=== PATIENT | female | born 1955 | race Caucasian/White ===

== ENCOUNTER 2024-09-12 06:57 | Inpatient (IN) | payer MEDICARE ==
[~2024-09-12] VITALS: Ht 160 cm; Wt 76.2 kg
--- NOTE | 2024-09-12 07:23 | ERN ---
ED Note History of Present Illness Stated Complaint: SHORTNESS OF BREATH Chief Complaint: Shortness of Breath Time Seen by MD: 07:18 Dictation: This is a 69-year-old female with a past medical history of CHF, surgical history of TAVR who presented to the ER complaining of shortness breath. Patient said that she has started feeling weak, fatigued and lately started having chills, symptoms started 3 days ago. Initial workup in the ER was remarkable for fever with a temperature 101.4. During initial evaluation in the room patient was shaking. Allergies: Coded Allergies: Sulfa (Sulfonamide Antibiotics) (Unverified Allergy, Intermediate, 09/12/24) Past Medical History Past Medical History: Other Additional Past Medical Hx: PULMONARY HTN Surgical History: Cholecystectomy, Other Surgical History Other: LIVER TRANSPLANT, TRANS AORTIC VALVE REPLACEMENT (ELEQUIS), Review of System Dictation Constitutional: Positive for weakness, fever and chills Eyes: Negative for injury, pain,redness, and discharge ENT: Negative for injury,pain or swelling Cardiovascular: Negative for chest pain, palpitations, and edema Respiratory: Positive for shortness of breath negative for cough, and wheezing, Abdomen/GI: Negative for abdominal pain, nausea, vomiting, diarrhea, and constipation Back: Negative for injury and pain : Negative for injury, bleeding and discharge MS/Extremity: Negative for injury and deformity Skin: Negative for rash, and discoloration Neuro: Negative for headache, weakness, numbness, tingling, and seizure Psych: Negative for suicide ideation, homicidal ideation, and hallucinations Initial Vital Sign VS Vital Signs Date Time Temp Pulse Resp B/P (MAP) Pulse Ox O2 Delivery O2 Flow Rate FiO2 09/12/24 07:01 101.5 95 25 105/48 91 Room Air* 0 21 Physical Exam Dictation General: awake, alert, febrile Head/Face: Normocephalic, atraumatic Eyes: PERRL, EOMI, vision at baseline ENT: oral cavity clear, TMs clear, no signs of infection Neck: Trachea midline, supple, no nuchal rigidity Cardiovascular: Borderline tachycardia No MRGs, no JVD Respiratory: Mild tachypnea, no wheezes Abdomen: Soft, non-tender, non-distended, normal bowel sounds, no guarding or rebound. Skin: Warm, dry, normal turgor, no rash MS/Extremity: Pulses equal, no cyanosis, neurovascular intact, FROM Neuro: COAx4, GCS 15, strength 5/5, CN 2-12 intact, normal cerebellar exam, normal gait, Psych: Normal behavior, mood, and affect normal Results (Laboratory/Radiology) Laboratory/Radiology Laboratory Tests Test 09/12/24 07:13 09/12/24 07:31 09/12/24 09:07 Influenza Type A Antigen Positive For Type A Influenza Type B Antigen Negative For Type B SARS-CoV-2, RNA, NAAT NEGATIVE SARS CoV-2 White Blood Count 4.4 K/uL (4.8-10.8) L Red Blood Count 2.63 MIL/uL (4.00-5.50) L Hemoglobin 8.8 g/dL (12.0-16.0) L Hematocrit 27.1 % (36-48) L Mean Corpuscular Volume 103.0 fL (79-99) H Mean Corpuscular Hemoglobin 33.5 pg (27.0-33.0) H Mean Corpuscular Hemoglobin Concent 32.5 g/dL (32.0-36.0) Red Cell Distribution Width 19.5 % (11.0-15.5) H Platelet Count 66 K/uL (130-400) L Mean Platelet Volume 10.9 fL (7.5-10.5) H Immature Granulocyte % (Auto) 0.7 % (0-1) Neutrophils (%) (Auto) 88.4 % (40.0-77.0) H Lymphocytes (%) (Auto) 3.9 % (21.0-51.0) L Monocytes (%) (Auto) 6.3 % (3.0-13.0) Eosinophils (%) (Auto) 0.5 % (0.0-8.0) Basophils (%) (Auto) 0.2 % (0.0-5.0) Neutrophils # (Auto) 3.9 K/uL (1.8-7.7) Lymphocytes # (Auto) 0.2 K/uL (1.0-4.8) L Monocytes # (Auto) 0.3 K/uL (0.1-1.0) Eosinophils # (Auto) 0.02 K/uL (0.00-0.70) Basophils # (Auto) 0.01 K/uL (0.00-0.20) Absolute Immature Granulocyte (auto 0.03 K/uL (0-1) Nucleated Red Blood Cells 0.0 % (0.0-0.19) White Cell Morphology Comment See comments Platelet Morphology Comment DECREASED Red Blood Cell Morphology See comments Sodium Level 138 mmol/L (136-145) Potassium Level 4.4 mmol/L (3.5-5.1) Chloride Level 105 mmol/L (101-111) Carbon Dioxide Level 24 mmol/L (21-32) Blood Urea Nitrogen 37 mg/dL (7-18) H Creatinine 1.7 mg/dL (0.5-1.0) H Glomerular Filtration Rate Calc 32 mL/min (>90) Random Glucose 124 mg/dL (70-105) H Total Calcium 8.8 mg/dL (8.5-10.1) B-Type Natriuretic Peptide 123 pg/mL (0-100) H Blood Gas Specimen Type Arterial Arterial Blood pH 7.484 (7.350-7.450) Arterial Blood Partial Pressure CO2 26 mmHg (32-45) L Arterial Blood Partial Pressure O2 86.7 mmHg (83.0-108.0) Arterial Blood HCO3 19.1 mmol/L (21.0-28.0) L Arterial Blood Oxygen Saturation 97.3 % (94.0-98.0) Arterial Blood Base Excess -2.6 mmol/L (-2.0-3.0) L Blood Gas Temperature 37.0 CELSIUS (35.5-37.0) Blood Gas Flow-by 2.00 L/min (0.00-15.00) Blood Gas Vent Mode NC (ROOM AIR) FiO2 28.0 % Blood Gas Specimen Comment LR, Labs Reviewed?: Yes ED Course ED Course Orders Procedure Category Date Status Time Cbc With Differential LAB 09/12/24 Complete 07:18 Basic Metabolic Panel LAB 09/12/24 Complete 07:18 B-Type Natriuretic LAB 09/12/24 Complete Peptide 07:18 Chest 1vw RAD 09/12/24 Taken 07:18 Acetaminophen 500mg PHA 09/12/24 Complete Tab (Tylenol 500mg T 07:30 Acetaminophen 500mg PHA 09/12/24 Complete Tab (Tylenol 500mg T 07:25 Influenza Type A & B, LAB 09/12/24 Complete Rapid 07:36 Covid Rna Naat LAB 09/12/24 Complete 07:36 Blood Cult EDIE 09/12/24 Logged 08:18 Lactic Acid LAB 09/12/24 In Process 08:18 B-Type Natriuretic LAB 09/12/24 In Process Peptide 08:18 Zosyn 3.375gm+Ns 50ml PHA 09/12/24 Complete (Zosyn 3.375gm+Ns 08:30 Ondansetron 4mg Inj PHA 09/12/24 Complete (Zofran 4mg Inj) 08:30 Ondansetron 4mg Inj PHA 09/12/24 Complete (Zofran 4mg Inj) 08:19 0.9%Nacl 1000ml (Ns PHA 09/12/24 Complete 1000ml) 08:30 Arterial Blood Gas RT 09/12/24 Transmitted 08:44 Arterial Blood Gas LAB 09/12/24 Complete 09:07 Oseltamivir Phosphate PHA 09/12/24 In Process (Tamiflu) 10:00 Admit Orders ADM 09/12/24 Transmitted 09:40 Oseltamivir Phosphate PHA 09/12/24 In Process (Tamiflu) 21:00 Ondansetron 4mg Inj PHA 09/12/24 In Process (Zofran 4mg Inj) 10:00 Acetaminophen 325 Tab PHA 09/12/24 In Process (Tylenol 325mg Tab 10:00 Famotidine 20mg Tab PHA 09/12/24 In Process (Pepcid 20mg Tab) 21:00 0.9%Nacl 1000ml (Ns PHA 09/12/24 In Process 1000ml) 10:00 Renal Dialysis Diet DIET 09/12/24 Transmitted Lunch Current Medications Medications (Trade) Dose Ordered Sig/Sandy Route PRN Reason Start Time Stop Time Status Last Admin Dose Admin Acetaminophen (TYLenol 500MG TAB) 500 mg ONCE ONCE PO 09/12/24 07:30 09/12/24 07:31 DC 09/12/24 07:28 Acetaminophen (TYLenol 500MG TAB) 500 mg STK-MED ONCE .ROUTE 09/12/24 07:25 09/12/24 07:25 DC Ondansetron HCl (zoFRAN 4MG INJ) 4 mg ONCE ONCE IVP 09/12/24 08:30 09/12/24 08:31 DC 09/12/24 08:22 Ondansetron HCl (zoFRAN 4MG INJ) 4 mg STK-MED ONCE .ROUTE 09/12/24 08:19 09/12/24 08:19 DC Oseltamivir Phosphate (Tamiflu) 75 mg ONCE ONCE PO 09/12/24 10:00 09/12/24 10:01 Piperacillin Sod/ Tazobactam Sod (Zosyn 3.375gm+NS 50ml) 3.375 gm ONCE ONCE IV 09/12/24 08:30 09/12/24 08:31 DC 09/12/24 08:28 Sodium Chloride 1,000 ml @ 0 mls/hr ONCE ONCE IV 09/12/24 08:30 09/12/24 08:31 DC 09/12/24 08:32 Vital Signs Date Time Temp Pulse Resp B/P (MAP) Pulse Ox O2 Delivery O2 Flow Rate FiO2 09/12/24 08:48 98.8 79 20 98/44 97 Nasal Cannula* 2 28 09/12/24 07:38 101.5 80 24 112/43 97 Nasal Cannula* 1 24 09/12/24 07:28 101.5 80 24 112/43 99 Nasal Cannula* 1 24 09/12/24 07:28 101.5 09/12/24 07:07 26 88 09/12/24 07:01 101.5 95 25 105/48 91 Room Air* 0 21 Medical Decision Making MDM MDM: Differential diagnosis: Fever, dehydration, viral syndrome 0936- Hospitalist consult,accepts patient for admission Rationale: Tests considered and ordered secondary to shared decision making include: labs, ECG and radiology Risk of complication and/or morbidity or mortality of patient management: None Medications-Per medication reconciliation Need for hospitalization: Patient does meet criteria for hospitalization. Need for emergency major/minor surgery: No There are no social concerns with this patient. I independently interpreted the test that were performed, results were reviewed by me and considered findings on radiology if ordered. Medical management and examination interpretation discussions were had by me with other qualified healthcare professionals as indicated for the patient's care. DX & DISP Disposition: Inpatient Decision to Admit Date: Sep 12, 2024 Decision to Admit Time: 09:36 Departure Impression: Primary Impression: Fever Additional Impressions: Influenza, Dehydration, Dyspnea Condition: Stable Referrals: SELF,REFERRAL (PCP) BHUPENDRA ROSE MD Sep 12, 2024 07:23 NATALEE CASTILLO MD Sep 12, 2024 10:00
[2024-09-12] MEDS: acetaMINOPHEN 500 MG TABLET PO ONE (07:28)
[2024-09-12] MEDS: acetaMINOPHEN 500 MG TABLET ONE (07:28)
[2024-09-12 07:37] LABS: BASOPHILS # (AUTO) 0.01 K/uL (0.00-0.20); BASOPHILS % (AUTO) 0.2 % (0.0-5.0); EOSINOPHILS # (AUTO) 0.02 K/uL (0.00-0.70); EOSINOPHILS % (AUTO) 0.5 % (0.0-8.0); HEMATOCRIT 27.1 % (36-48); IMMATURE GRANULOCYTE ABSOLUTE 0.03 K/uL (0-1); LYMPHOCYTES # (AUTO) 0.2 K/uL (1.0-4.8); LYMPHOCYTES % (AUTO) 3.9 % (21.0-51.0); MEAN CORPUSCULAR HEMOGLOBIN 33.5 pg (27.0-33.0); MEAN CORPUSCULAR HGB CONC 32.5 g/dL (32.0-36.0); MONOCYTES # (AUTO) 0.3 K/uL (0.1-1.0); MONOCYTES % (AUTO) 6.3 % (3.0-13.0); NEUTROPHILS # (AUTO) 3.9 K/uL (1.8-7.7); NEUTROPHILS % (AUTO) 88.4 % (40.0-77.0); PLATELET COUNT (AUTO) 66 K/uL (130-400); RED BLOOD CELL COUNT(AUTO) 2.63 MIL/uL (4.00-5.50); RED CELL DISTRIBUTION WIDTH 19.5 % (11.0-15.5); WHITE BLOOD COUNT (AUTO) 4.4 K/uL (4.8-10.8)
[2024-09-12 07:53] LABS: CREATININE 1.7 mg/dL (0.5-1.0); POTASSIUM 4.4 mmol/L (3.5-5.1)
[2024-09-12 07:56] LABS: B-TYPE NATRIURETIC PEPTIDE 123 pg/mL (0-100)
[2024-09-12 08:04] LABS: SARS-CoV-2, RNA, NAAT NEGATIVE SARS CoV-2 (NEGATIVE)
[2024-09-12 08:08] LABS: INFLUENZA TYPE B Negative For Type B (NEGATIVE)
--- NOTE | 2024-09-12 08:08 | NUR ---
PATIENT REPORT CHRONIC KIDNEY DISEASE STAGE 4
[2024-09-12 08:13] LABS: PLATELET MORPHOLOGY COMMENT DECREASED
--- NOTE | 2024-09-12 08:13 | NUR ---
PATIENT REPORTS LIVER TRANSPLANT 5 YEARS AGO FOR LIVER CIRRHOSIS. STATES HAS CHRONIC LOW PLATLET COUNT. ON ELIQUIS FOR CHRONIC AFIB WITH HISTORY OF CARDIAC ABLATION.
[2024-09-12] MEDS: ondanSETRON 4MG INJ ONE (08:22)
[2024-09-12] MEDS: ondanSETRON 4MG INJ IVP ONE (08:22)
[2024-09-12] MEDS: ZOSYN 3.375GM +NS 50ML IV ONE (08:28)
[2024-09-12] MEDS: 0.9%NACL 1000ML 1,000 ML IV ONE (08:32)
[2024-09-12 09:01] LABS: INFLUENZA TYPE A Positive For Type A (NEGATIVE)
[2024-09-12 09:09] LABS: ABG BASE EXCESS -2.6 mmol/L (-2.0-3.0); ABG HCO3 19.1 mmol/L (21.0-28.0); ABG OXYGEN SATURATION 97.3 % (94.0-98.0); ABG PCO2 26 mmHg (32-45); ABG PH 7.484 (7.350-7.450); PO2, ARTERIAL BG 86.7 mmHg (83.0-108.0); VENT MODE, BG NC (ROOM AIR)
[2024-09-12] MEDS: OSELTAMIVIR PHOSPHATE 75 MG CAP PO ONE (09:45)
[2024-09-12] MEDS ORDERED: acetaMINOPHEN 325 MG TAB PO PRN (10:00)
[2024-09-12] MEDS: 0.9%NACL 1000ML 1,000 ML IV SCH (10:04)
[2024-09-12] MEDS ORDERED: PoTASSium chloRIDE 20MEQ/100ML 100 ML IV PRN (12:00)
[2024-09-12] MEDS: OSELTAMIVIR PHOSPHATE 75 MG CAP PO SCH (12:12)
--- NOTE | 2024-09-12 12:16 | HP ---
[facility] HISTORY AND PHYSICAL Date of Service: Sep 12, 2024 Time of Service: 11:58 HISTORY OF PRESENT ILLNESS: [ ] This is a 69-year-old female that presents in ER with chief complaints of shortness a breath. Associated with cough, fever chills flu-like symptoms onset three days ago. Severity severe. Aggravating factors none alleviating factors none. ER workup was consistent with sepsis secondary to viral infection influenza A given to patient is on immunosuppressive medications for liver transplant: PROGRAF will be admitted for Sepsis. Patient was seen in ED 19 patient appears acutely ill. Fevers cough she is currently on nasal cannula2 L. REVIEW OF SYSTEMS A12 point ROS was obtained all relevant positive documented otherwise ROS negative PAST MEDICAL HISTORY: [ ] Hypertension, liver disease PAST SURGICAL HISTORY: [ ] Liver transplant, aortic valve replacement on Eliquis cholecystectomy PAST SOCIAL HISTORY: [ ] Denies smoking tobacco products and alcohol use FAMILY HISTORY: [ ] Noncontributory Coded Allergies: Sulfa (Sulfonamide Antibiotics) (Unverified Allergy, Intermediate, 09/12/24) PHYSICAL EXAM GENERAL APPEARANCE: The patient is awake, alert, on nasal cannula2 L. Appears acutely ill. NEUROLOGICAL: Cranial nerves II-XII grossly intact. Motor is 5/5 in bilateral upper and lower extremities proximal to distal. No sensory deficits. HEENT: Face is symmetric. Pupils are equal and reactive. Extraocular movements are intact. NECK: Supple. No JVD. No thyromegaly. No submental, submandibular, pre- /postauricular, occipital or supraclavicular lymphadenopathy. CHEST: Normal chest expansion. No Telemetry. LUNGS: Absence of any rales, ++ wheezing. CARDIOVASCULAR: Regular. S1 and S2 normal. No appreciable rubs, murmurs or gallops. ABDOMEN: Soft, nontender, and nondistended. There is no rebound, voluntary guarding, or rigidity. : Deferred. No Hodgson. EXTREMITIES: Non-edematous and not cyanotic. No clubbing. Good capillary refill. SKIN: No skin breakdown. Vital Sign (Last 24 Hours) 09/12/24 10:10 Temp 98.8 Pulse 69 Resp 24 B/P (MAP) 101/51 Pulse Ox 96 O2 Delivery Nasal Cannula* O2 Flow Rate 2 FiO2 28 LABS: Laboratory: Test 09/12/24 09:14 3/6/25 09:07 09/12/24 07:31 09/12/24 07:13 Range/Units Lactic Acid Level 0.9 0.8-2.5 mmol/L B-Type Natriuretic Peptide 120 H 0-100 pg/mL Blood Gas Specimen Type Arterial Arterial Blood pH 7.484 H 7.350-7.450 Arterial Blood Partial Pressure CO2 26 L 32-45 mmHg Arterial Blood Partial Pressure O2 86.7 83.0-108.0 mmHg Arterial Blood HCO3 19.1 L 21.0-28.0 mmol/L Arterial Blood Oxygen Saturation 97.3 94.0-98.0 % Arterial Blood Base Excess -2.6 L -2.0-3.0 mmol/L Blood Gas Temperature 37.0 35.5-37.0 CELSIUS Blood Gas Flow-by 2.00 0.00-15.00 L/min Blood Gas Vent Mode NC ROOM AIR FiO2 28.0 % Blood Gas Specimen Comment DR.GUADARAMA SHOSHANA White Blood Count 4.4 L 4.8-10.8 K/uL Red Blood Count 2.63 L 4.00-5.50 MIL/uL Hemoglobin 8.8 L 12.0-16.0 g/dL Hematocrit 27.1 L 36-48 % Mean Corpuscular Volume 103.0 H 79-99 fL Mean Corpuscular Hemoglobin 33.5 H 27.0-33.0 pg Mean Corpuscular Hemoglobin Concent 32.5 32.0-36.0 g/dL Red Cell Distribution Width 19.5 H 11.0-15.5 % Platelet Count 66 L 130-400 K/uL Mean Platelet Volume 10.9 H 7.5-10.5 fL Immature Granulocyte % (Auto) 0.7 0-1 % Neutrophils (%) (Auto) 88.4 H 40.0-77.0 % Lymphocytes (%) (Auto) 3.9 L 21.0-51.0 % Monocytes (%) (Auto) 6.3 3.0-13.0 % Eosinophils (%) (Auto) 0.5 0.0-8.0 % Basophils (%) (Auto) 0.2 0.0-5.0 % Neutrophils # (Auto) 3.9 1.8-7.7 K/uL Lymphocytes # (Auto) 0.2 L 1.0-4.8 K/uL Monocytes # (Auto) 0.3 0.1-1.0 K/uL Eosinophils # (Auto) 0.02 0.00-0.70 K/uL Basophils # (Auto) 0.01 0.00-0.20 K/uL Absolute Immature Granulocyte (auto 0.03 0-1 K/uL Nucleated Red Blood Cells 0.0 0.0-0.19 % White Cell Morphology Comment See comments Platelet Morphology Comment DECREASED Red Blood Cell Morphology See comments Sodium Level 138 136-145 mmol/L Potassium Level 4.4 3.5-5.1 mmol/L Chloride Level 105 101-111 mmol/L Carbon Dioxide Level 24 21-32 mmol/L Blood Urea Nitrogen 37 H 7-18 mg/dL Creatinine 1.7 H 0.5-1.0 mg/dL Glomerular Filtration Rate Calc 32 >90 mL/min Random Glucose 124 H 70-105 mg/dL Total Calcium 8.8 8.5-10.1 mg/dL Influenza Type A Antigen Positive For Type A *A NEGATIVE Influenza Type B Antigen Negative For Type B NEGATIVE SARS-CoV-2, RNA, NAAT NEGATIVE SARS CoV-2 NEGATIVE Current Medications Medications (Trade) Dose Ordered Sig/Sandy Route PRN Reason Start Time Stop Time Status Last Admin Dose Admin Acetaminophen (TYLenol 325MG TAB) 650 mg Q4H PRN PO TEMPERATURE GREATER THAN 101.5 09/12/24 10:00 10/12/24 09:59 Famotidine (Pepcid 20mg Tab) 20 mg DAILY PO 09/12/24 21:00 10/12/24 20:59 Ondansetron HCl (zoFRAN 4MG INJ) 4 mg Q6H PRN IVP NAUSEA/VOMITING 09/12/24 10:00 10/12/24 09:59 Oseltamivir Phosphate (Tamiflu) 75 mg BID PO 09/12/24 21:00 09/17/24 20:59 Sodium Chloride 1,000 ml @ 75 mls/hr [id number] IV 09/12/24 10:00 10/12/24 09:59 09/12/24 10:04 75 MLS/HR DIAGNOSTICS / RADIOLOGY: [ ] ASSESSMENT: Acute respiratory failure with hypoxia POA Sepsis secondary to viral syndrome influenza a POA Positive influenza a infection POA Viral syndrome POA Immunosuppression state on Prograf POA Hypercoagulable state secondary Aortic value replacement on Eliquis POA Anemia POA Acute on chronic renal failure History liver transplant on immunosuppressive drugs POA PLAN: Admit: Medical-surgical floor droplet isolation condition: Guarded Status: Full code IVF: NS at 75 mL/hour Diet heart healthy, aspiration precautions Consultants none Antibiotics: Tamiflu 5 mg p.o. daily doxycycline and azithromycin Robitussin every4 hours for cough scheduled and DuoNebs as needed Oxygen supplemental to keep O2 sats above 92% Encouraged patient to use IS while awake out of bed to chair as tolerated. Labs cbc, cmp, mag+ CRP pro calcitonin Replace electrolytes as needed as per protocol to keep potassium above 4.0 magnesium 2.0. Home medications pending to be reviewed by RN nurse. PRN: MEDICATIONS Tylenol 650 mg po every 4 hrs for fever Zofran 4 mg IV every 6 hrs for n/v bowel regiment: lactulose 20 gm PO BID PRN constipation Pain management: none Supportive measures: DVT ppx, GI ppx all questions answered time spent: > 35 min Supervising MD: Dr. Sho Fields c/d This document was generated in part using voice recognition software, occasional wrong word or sound alike substitutions may have occurred due to the inherent limitations of voice recognition software. Read the chart carefully and recognize using context, where the substitutions have occurred. Although every effort was made to edit the content, information management manager and typing errors may occur ADVANCED CARE PLANNING 1. Which of the following were discussed? Hospice Care - Yes / No Therapeutic options - Yes / No Advance Directives - Yes / No Other discussions - 2. Discussed with who? 3. Voluntary nature of this service was explained to the patient? Yes / No 4. Amount of time spent - 5. Reviewed by Physician? (if this service was performed by NPP) Yes / No ATTESTATION BY PHYSICIAN I have seen and examined the patient. I reviewed the documentation, medical decision making, and treatment plan as noted by the mid-level provider above. I agree with the findings and plan of care. LAITH SOLANO MD, ELIZABETH NP Sep 12, 2024 12:16
[2024-09-12] MEDS: guaiFENesin-DM 200/20MG 10ML PO SCH (12:19)
[2024-09-12 12:33] VITALS: PULSE 74; RESP 24
[2024-09-12] MEDS: IpraTROPium/alBUTERol SULFATE 3 ML SOLUTION IH SCH (12:33)
[2024-09-12 12:36] VITALS: PULSE 75; RESP 24; O2SAT 96
[2024-09-12] MEDS ORDERED: APIX5TAB PO (13:03)
[2024-09-12] MEDS ORDERED: SPIR25TA6 PO (13:03)
[2024-09-12] MEDS ORDERED: TADA20TA72 PO (13:03)
[2024-09-12] MEDS ORDERED: ONDA-243 PO (13:03)
[2024-09-12] MEDS ORDERED: PRED5TAB PO (13:03)
[2024-09-12] MEDS ORDERED: METO-408 PO (13:03)
[2024-09-12] MEDS ORDERED: TENO300 PO (13:03)
[2024-09-12] MEDS ORDERED: MACI10TA PO (13:03)
[2024-09-12] MEDS ORDERED: LOPE2CAP PO (13:03)
[2024-09-12] MEDS ORDERED: FOLI0.8C PO (13:03)
[2024-09-12] MEDS ORDERED: SERT-440 PO (13:03)
[2024-09-12] MEDS ORDERED: EMPA10TA PO (13:03)
[2024-09-12] MEDS ORDERED: TACR1CAP10 PO (13:03)
[2024-09-12] MEDS ORDERED: PANT40TA54 PO (13:03)
[2024-09-12] MEDS ORDERED: ALLO100T PO (13:03)
[2024-09-12] MEDS ORDERED: COPP2CAP PO (13:03)
[2024-09-12] MEDS ORDERED: TORS20TA4 PO (13:03)
[2024-09-12] MEDS ORDERED: DICY-20 PO ×2 (13:03)
--- NOTE | 2024-09-12 13:09 | NUR ---
HOME MEDICATIONS UPDATED IN EMR
[2024-09-12] MEDS: DOXYCYCLINE 100MG+NS 250ML 250 ML IV SCH (13:13)
[2024-09-12] MEDS: acetaMINOPHEN 325 MG TAB PO PRN (14:28)
[2024-09-12] MEDS: AZITHROMYCIN 500MG+NS 250ML 250 ML IVPB SCH (15:40)
--- NOTE | 2024-09-12 16:25 | HMCIMG ---
CHEST 1VW HISTORY: Pneumonia COMPARISON: None FINDINGS: A frontal projection of the chest was obtained. Mild bilateral pulmonary infiltrates are seen. The heart is borderline enlarged. Mild degenerative changes are seen. No evidence of aortic calcification is seen. IMPRESSION: 1. Mild bilateral pulmonary infiltrates.
[2024-09-12 19:00] VITALS: PULSE 86; RESP 20; O2SAT 96
[2024-09-12] MEDS: metOPROLol sucCINATE 25 MG TAB.SR.24H PO SCH (19:49)
[2024-09-12] MEDS: metOPROLol sucCINATE 25 MG TAB.SR.24H PO ONE (20:39)
[2024-09-12] MEDS: metoPROLOL tartRATE 25 MG TAB ONE (20:39)
[2024-09-12] MEDS ORDERED: metOPROLol sucCINATE 25 MG TAB.SR.24H PO SCH (21:00)
[2024-09-12] MEDS ORDERED: OSELTAMIVIR PHOSPHATE 75 MG CAP PO SCH (21:00)
[2024-09-12] MEDS: APIXaban 5 MG TABLET PO SCH (21:14)
[2024-09-12] MEDS: FAMOTIDINE 20MG TAB PO SCH (21:14)
[2024-09-12] MEDS: TORSEMIDE 20 MG TAB PO SCH (21:14)
[2024-09-12] MEDS ORDERED: [UNRECOGNIZED DRUG - CODE] PO (21:27)
--- NOTE | 2024-09-12 23:04 | NUR ---
REPORT GIVEN TO DEMOND SMALL
[2024-09-12 23:30] VITALS: BP 111/50; PULSE 86; RESP 20; TEMP 99.1; O2SAT 99
[2024-09-12 23:57] VITALS: PULSE 77; RESP 18; O2SAT 97
[2024-09-12] MEDS: IpraTROPium 0.5 MG/2.5 ML INH IH SCH (23:57)
[2024-09-13] VITALS (15 sets, daily range): BP systolic 96–112; BP diastolic 37–53; PULSE 70–87; RESP 18–24; TEMP 98–99.3; O2SAT 97–99
[2024-09-13] MEDS ORDERED: PoTASSium chloRIDE 20MEQ ER 20 MEQ ERTAB PO PRN
[2024-09-13] MEDS ORDERED: PoTASSium chloRIDE 10MEQ/100ML 100 ML IV PRN ×2
[2024-09-13] MEDS ORDERED: PoTASSium chl 10% ELIXIR 20MEQ 20 MEQ/15 ML UDCUP PO PRN
[2024-09-13] MEDS: LOPERAMIDE HCL 2 MG CAP PO ONE ×2 (00:30→00:31)
[2024-09-13 05:47] LABS: EOSINOPHILS # (AUTO) 0.02 K/uL (0.00-0.70); EOSINOPHILS % (AUTO) 0.6 % (0.0-8.0); HEMATOCRIT 23.3 % (36-48); IMMATURE GRANULOCYTE ABSOLUTE 0.03 K/uL (0-1); LYMPHOCYTES # (AUTO) 0.1 K/uL (1.0-4.8); LYMPHOCYTES % (AUTO) 3.8 % (21.0-51.0); MEAN CORPUSCULAR HEMOGLOBIN 33.5 pg (27.0-33.0); MEAN CORPUSCULAR HGB CONC 32.2 g/dL (32.0-36.0); MONOCYTES # (AUTO) 0.3 K/uL (0.1-1.0); MONOCYTES % (AUTO) 10.9 % (3.0-13.0); NEUTROPHILS # (AUTO) 2.6 K/uL (1.8-7.7); NEUTROPHILS % (AUTO) 83.7 % (40.0-77.0); PLATELET COUNT (AUTO) 64 K/uL (130-400); RED BLOOD CELL COUNT(AUTO) 2.24 MIL/uL (4.00-5.50); RED CELL DISTRIBUTION WIDTH 19.4 % (11.0-15.5); WHITE BLOOD COUNT (AUTO) 3.1 K/uL (4.8-10.8)
[2024-09-13 06:02] LABS: BILIRUBIN,TOTAL 0.7 mg/dL (0.2-1.0); CREATININE 1.5 mg/dL (0.5-1.0); POTASSIUM 3.8 mmol/L (3.5-5.1); TOTAL PROTEIN, SERUM 6.1 g/dL (6.0-8.3)
[2024-09-13] MEDS: FOLic ACID 1 MG TABLET PO SCH (08:41)
[2024-09-13] MEDS: alloPURInol 100 MG TABLET PO SCH (08:41)
[2024-09-13] MEDS: tacrOLIMUS 1 MG CAPSULE PO SCH (08:41)
[2024-09-13] MEDS: SERTraline HCL 50 MG TABLET PO SCH (08:42)
[2024-09-13] MEDS: TENOFOVIR DISOPROXIL FUMARATE PO SCH (08:43)
[2024-09-13] MEDS: SPIRONOLACTONE 25 MG TAB PO SCH (08:43)
[2024-09-13] MEDS: MACITENTAN PO SCH (08:43)
--- NOTE | 2024-09-13 08:57 | PN ---
[facility] PROGRESS NOTE Date of Service: Sep 13, 2024 Time of Service: 08:46 SUBJECTIVE: [ ] This is a 51-year-old female that presents in ER with generalized buttock witnessed in fever and chills. Patient was found to have influenza a. She continues the need for oxygen we will have respiratory to titrate as tolerated. She uses CPAP overnight. Device from home. We will get Physical therapy. Continues empiric antibiotics REVIEW OF SYSTEMS A12 point ROS was obtained all relevant positive documented otherwise ROS negative PHYSICAL EXAM GENERAL APPEARANCE: The patient is awake, alert, on nasal cannula2 L. Appears acutely ill. NEUROLOGICAL: Cranial nerves II-XII grossly intact. Motor is 5/5 in bilateral upper and lower extremities proximal to distal. No sensory deficits. HEENT: Face is symmetric. Pupils are equal and reactive. Extraocular movements are intact. NECK: Supple. No JVD. No thyromegaly. No submental, submandibular, pre- /postauricular, occipital or supraclavicular lymphadenopathy. CHEST: Normal chest expansion. No Telemetry. LUNGS: Absence of any rales, ++ wheezing. CARDIOVASCULAR: Regular. S1 and S2 normal. No appreciable rubs, murmurs or gallops. ABDOMEN: Soft, nontender, and nondistended. There is no rebound, voluntary guarding, or rigidity. : Deferred. No Hodgson. EXTREMITIES: Non-edematous and not cyanotic. No clubbing. Good capillary refill. SKIN: No skin breakdown. Vital Signs (last 8hr) Date Time Temp Pulse Resp B/P (MAP) Pulse Ox O2 Delivery O2 Flow Rate FiO2 09/13/24 08:06 87 20 09/13/24 08:04 87 20 N/Cannula Low lpm 2.0 28 09/13/24 08:00 98.2 75 18 109/50 99 Nasal Cannula 3.0 09/13/24 03:47 98.8 73 20 110/50 95 CPAP LABS: Laboratory: Test 09/13/24 05:40 09/12/24 09:14 09/12/24 09:07 09/12/24 07:31 Range/Units White Blood Count 3.1 #L 4.8-10.8 K/uL Red Blood Count 2.24 L 4.00-5.50 MIL/uL Hemoglobin 7.5 L 12.0-16.0 g/dL Hematocrit 23.3 L 36-48 % Mean Corpuscular Volume 104.0 H 79-99 fL Mean Corpuscular Hemoglobin 33.5 H 27.0-33.0 pg Mean Corpuscular Hemoglobin Concent 32.2 32.0-36.0 g/dL Red Cell Distribution Width 19.4 H 11.0-15.5 % Platelet Count 64 L 130-400 K/uL Mean Platelet Volume 10.9 H 7.5-10.5 fL Immature Granulocyte % (Auto) 1.0 0-1 % Neutrophils (%) (Auto) 83.7 H 40.0-77.0 % Lymphocytes (%) (Auto) 3.8 L 21.0-51.0 % Monocytes (%) (Auto) 10.9 3.0-13.0 % Eosinophils (%) (Auto) 0.6 0.0-8.0 % Basophils (%) (Auto) 0.0 0.0-5.0 % Neutrophils # (Auto) 2.6 1.8-7.7 K/uL Lymphocytes # (Auto) 0.1 L 1.0-4.8 K/uL Monocytes # (Auto) 0.3 0.1-1.0 K/uL Eosinophils # (Auto) 0.02 0.00-0.70 K/uL Basophils # (Auto) 0.00 0.00-0.20 K/uL Absolute Immature Granulocyte (auto 0.03 0-1 K/uL Nucleated Red Blood Cells 0.0 0.0-0.19 % Sodium Level 140 136-145 mmol/L Potassium Level 3.8 3.5-5.1 mmol/L Chloride Level 109 101-111 mmol/L Carbon Dioxide Level 22 21-32 mmol/L Blood Urea Nitrogen 28 H 7-18 mg/dL Creatinine 1.5 H 0.5-1.0 mg/dL Glomerular Filtration Rate Calc 37 >90 mL/min Random Glucose 101 70-105 mg/dL Total Calcium 7.4 L 8.5-10.1 mg/dL Magnesium Level 2.00 1.80-2.40 mg/dL Total Bilirubin 0.7 0.2-1.0 mg/dL Aspartate Amino Transf (AST/SGOT) 16 10-37 U/L Alanine Aminotransferase (ALT/SGPT) 10 L 12-78 U/L Alkaline Phosphatase 71 50-136 U/L Total Protein 6.1 6.0-8.3 g/dL Albumin 3.0 L 3.5-5.0 g/dL Lactic Acid Level 0.9 0.8-2.5 mmol/L B-Type Natriuretic Peptide 120 H 0-100 pg/mL Blood Gas Specimen Type Arterial Arterial Blood pH 7.484 H 7.350-7.450 Arterial Blood Partial Pressure CO2 26 L 32-45 mmHg Arterial Blood Partial Pressure O2 86.7 83.0-108.0 mmHg Arterial Blood HCO3 19.1 L 21.0-28.0 mmol/L Arterial Blood Oxygen Saturation 97.3 94.0-98.0 % Arterial Blood Base Excess -2.6 L -2.0-3.0 mmol/L Blood Gas Temperature 37.0 35.5-37.0 CELSIUS Blood Gas Flow-by 2.00 0.00-15.00 L/min Blood Gas Vent Mode NC ROOM AIR FiO2 28.0 % Blood Gas Specimen Comment LR, White Cell Morphology Comment See comments Platelet Morphology Comment DECREASED Red Blood Cell Morphology See comments Test 09/12/24 07:13 Range/Units Influenza Type A Antigen Positive For Type A *A NEGATIVE Influenza Type B Antigen Negative For Type B NEGATIVE SARS-CoV-2, RNA, NAAT NEGATIVE SARS CoV-2 NEGATIVE Current Medications Medications (Trade) Dose Ordered Sig/Sandy Route PRN Reason Start Time Stop Time Status Last Admin Dose Admin Acetaminophen (TYLenol 325MG TAB) 650 mg Q4H PRN PO TEMPERATURE GREATER THAN 101.5 09/12/24 10:00 09/12/24 12:37 DC Acetaminophen (TYLenol 325MG TAB) 650 mg Q4H PRN PO TEMPERATURE GREATER THAN 101.5 09/12/24 12:30 10/12/24 12:29 09/12/24 23:21 650 MG Albuterol (DUOneb) 1 UDVIAL [id number] IH 09/12/24 12:00 09/12/24 21:30 DC 09/12/24 19:00 1 UDVIAL Allopurinol (ZYLOprim 100MG) 100 mg DAILY PO 09/13/24 09:00 10/13/24 08:59 09/13/24 08:41 100 MG Apixaban (EliquIS) 5 mg BID PO 09/12/24 21:00 10/12/24 20:59 09/13/24 08:43 5 MG Azithromycin 250 ml @ 250 mls/hr Q24H IVPB 09/12/24 12:30 09/22/24 12:29 09/12/24 15:40 250 MLS/HR Doxycycline Hyclate 250 ml @ 125 mls/hr Q12H IV 09/12/24 12:30 09/22/24 12:29 09/13/24 00:32 125 MLS/HR Famotidine (Pepcid 20mg Tab) 20 mg DAILY PO 09/12/24 21:00 10/12/24 20:59 09/13/24 08:41 20 MG Folic Acid (FOLic ACID 1 MG TABLET) 1 mg DAILY PO 09/13/24 09:00 10/13/24 08:59 09/13/24 08:41 1 MG Guaifenesin/ Dextromethorphan (RobiTUSSin DM 200/20MG 10ML) 10 ml Q4H PO 09/12/24 12:00 10/12/24 11:59 09/13/24 08:43 10 ML Home Med (Home Medication) Copper Gluconate (Copper... DAILY PO 09/13/24 09:00 10/13/24 08:59 Home Med (Home Medication) Macitentan (Opsumit) 1 TAB DAILY PO 09/13/24 09:00 10/13/24 08:59 Home Med (Home Medication) Tadalafil 20 MG DAILY PO 09/13/24 09:00 10/13/24 08:59 Home Med (Home Medication) Tenofovir Disoproxil Fumar... DAILY PO 09/13/24 09:00 10/13/24 08:59 Ipratropium [place] (AtrovENT UD) 0.5 MG [id number] IH 09/13/24 00:00 10/13/24 00:00 09/13/24 08:06 0.5 MG Magnesium Sulfate 50 ml @ 0 mls/hr PROTOCOL PRN IV low mag level 09/12/24 12:00 10/12/24 11:59 Metoprolol Succinate (TopROL XL) 12.5 mg HS PO 09/12/24 20:00 10/13/24 08:59 09/12/24 19:49 12.5 MG Metoprolol Succinate (TopROL XL) 12.5 mg HS PO 09/12/24 21:00 09/12/24 19:56 DC Metoprolol Succinate (TopROL XL) 25 mg DAILY PO 09/13/24 09:00 09/12/24 19:50 DC Ondansetron HCl (zoFRAN 4MG INJ) 4 mg Q6H PRN IVP NAUSEA/VOMITING 09/12/24 10:00 10/12/24 09:59 Oseltamivir Phosphate (Tamiflu) 75 mg BID PO 09/12/24 21:00 09/12/24 12:02 DC Oseltamivir Phosphate (Tamiflu) 75 mg Q24H PO 09/12/24 13:00 09/17/24 12:59 Potassium Chloride 100 ml @ 50 mls/hr AD PRN IV POTASSIUM PROTOCOL 09/12/24 12:00 10/12/24 11:59 Potassium Chloride 100 ml @ 100 mls/hr AD PRN IV POTASSIUM PROTOCOL 09/13/24 00:00 09/12/24 23:59 DC Potassium Chloride 100 ml @ 100 mls/hr AD PRN IV POTASSIUM PROTOCOL 09/13/24 00:00 10/13/24 00:00 Potassium Chloride (K-Dur/Klor-Con 20meq) 10 meq AD PRN PO POTASSIUM PROTOCOL 09/13/24 00:00 10/13/24 00:00 Potassium Chloride (KCl 10% Elixir 20meq/15ml) 10 meq AD PRN PO POTASSIUM PROTOCOL 09/13/24 00:00 10/13/24 00:00 Sertraline HCl (ZOloft 50 mg tab) 100 mg DAILY PO 09/13/24 09:00 10/13/24 08:59 Sodium Chloride 1,000 ml @ 75 mls/hr [id number] IV 09/12/24 10:00 09/13/24 00:28 DC 09/12/24 23:22 75 MLS/HR Spironolactone (Aldactone 25mg) 25 mg DAILY PO 09/13/24 09:00 10/13/24 08:59 Tacrolimus (ProgRAF 1MG) 1 mg DAILY PO 09/13/24 09:00 10/13/24 08:59 09/13/24 08:41 1 MG Torsemide (Demadex) 20 mg BID PO 09/12/24 21:00 10/12/24 20:59 09/13/24 08:42 20 MG DIAGNOSTICS / RADIOLOGY: [ ] ASSESSMENT: Acute respiratory failure with hypoxia POA Sepsis secondary to viral syndrome influenza a POA Positive influenza a infection POA Viral syndrome POA Immunosuppression state on Prograf POA Hypercoagulable state secondary Aortic value replacement on Eliquis POA Anemia POA Acute on chronic renal failure History liver transplant on immunosuppressive drugs POA PLAN: Admit: Medical-surgical floor droplet isolation condition: Guarded Status: Full code IVF: Heplock Diet heart healthy, aspiration precautions Consultants prepress technician's Antibiotics: Tamiflu 75 mg p.o. daily doxycycline and azithromycin Robitussin every4 hours for cough scheduled and DuoNebs as needed change to Xop enex Continue with home CPAP bedtime Oxygen supplemental to keep O2 sats above 92% Encouraged patient to use IS while awake out of bed to chair as tolerated. Labs cbc, cmp, mag Replace electrolytes as needed as per protocol to keep potassium above 4.0 mag nesium 2.0. PRN: MEDICATIONS Tylenol 650 mg po every 4 hrs for fever Zofran 4 mg IV every 6 hrs for n/v Supportive measures: DVT ppx, GI ppx all questions answered Supervising MD: Dr. Sho Fields c/d This document was generated in part using voice recognition software, occasional wrong word or sound alike substitutions may have occurred due to the inherent limitations of voice recognition software. Read the chart carefully and recognize using context, where the substitutions have occurred. Although every effort was made to edit the content, dry mixer and typing errors may occur ADVANCED CARE PLANNING 1. Which of the following were discussed? Hospice Care - Yes / No Therapeutic options - Yes / No Advance Directives - Yes / No Other discussions - 2. Discussed with who? 3. Voluntary nature of this service was explained to the patient? Yes / No 4. Amount of time spent - 5. Reviewed by Physician? (if this service was performed by NPP) Yes / No ATTESTATION BY PHYSICIAN I have seen and examined the patient. I reviewed the documentation, medical decision making, and treatment plan as noted by the mid-level provider above. I agree with the findings and plan of care. LAITH SOLANO MD, ELIZABETH NP Sep 13, 2024 08:57
[2024-09-13] MEDS ORDERED: metOPROLol sucCINATE 25 MG TAB.SR.24H PO SCH (09:00)
[2024-09-13] MEDS ORDERED: PHARMACY COMMUNICATION MISC SCH (11:00)
--- NOTE | 2024-09-13 11:51 | NUR ---
DCP Pt awake, alert, oriented x3 lives in [place] but comes down to the [place] during winter. Pt states shes been coming for the past four years. Pt lives with her Barn Richardson [phone] in a house with three steps to enter, states she is independent but does have a cane, walker, and wheelchair if needed. Anticipates discharge is for home with and plan to travel back to [place]. Addendum: 09/13/24 at 1159 by LISY MAYNARD RN CM Amended: Links added.
--- NOTE | 2024-09-13 16:04 | HMCIMG ---
CT CHEST WITHOUT CONTRAST INDICATION: Pneumonia TECHNIQUE: Routine axial images using 5 mm slice thickness were acquired from the lung apices to the bases without the administration of IV contrast.Coronal and sagittal reformatted images acquired for interpretation. CT was performed with one or more of the following dose reduction techniques: Automated exposure control, adjustment of the mA and/or kV according to patient size, or use of iterative reconstruction technique. COMPARISON: None FINDINGS: The heart size is normal. Coronary arterial wall calcific plaque noted. No pericardial effusion noted. . Mild calcific plaque is present along the aortic arch and thoracic aortic curtis without aneurysmal dilation. Valve stent contribute to mild streak artifact. The visualized great vessels and thoracic aorta are within normal limits. The trachea and airways are patent. Very subtle small patchy "ground-glass" opacities scattered throughout both upper lungs. No axillary, hilar, or mediastinal lymphadenopathy. Very trace right pleural fluid without pneumothorax. Spleen is enlarged. Gallbladder is absent. Residual pneumobilia. Visible osseous structures are intact. IMPRESSION: 1. Mild residual bilateral upper lung pneumonia and very trace right pleural fluid. 2. Splenomegaly. 3. Arteriosclerotic disease as described.
--- NOTE | 2024-09-13 16:55 | CONS ---
[facility] CONSULTATION NOTE Date Patient Seen: Sep 13, 2024 Time of Visit: 16:50 Supervising Physician: SHRADDHA AHUMADA Reason for Consultation: ACUTE HYPOXEMIC RESP FAILURE PROBLEM LIST: Acute on chronic hypoxemic respiratory failure, home O2 dependent Influenza a infection w superimposed Bacterial pna Chronic congestive heart failure, unknown LVEF for patient Pancytopenia secondary to immunocompromised state from liver transplant History of liver transplant on tacrolimus Pulmonary hypertension History of aortic stenosis status post remote TAVR with bovine valve Paroxysmal atrial fibrillation on Eliquis HPI: PAST MEDICAL HX: see above PAST SURGICAL HX: noncontributory SOCIAL HISTORY: No tobacco, ETOH, or illicit drug use Coded Allergies: Sulfa (Sulfonamide Antibiotics) (Unverified Allergy, Intermediate, 09/12/24) REVIEW OF SYSTEMS: 12 point ROS reviewed with patient. Pertinent positives mentioned above. Otherwise negative. PHYSICAL EXAM: GENERAL: alert, weak, awake oriented x 3 HEENT: EOMI, Sclera non icteric, moist mucosa NECK: Supple, no JVD, trachea midline LUNGS: tight air entry, dyspneic, tachypneic HEART: Regular rate and rhythm. Normal S1 and S2, without murmurs ABD: Abdomen soft, nontender. Bowel sounds present EXT: No clubbing cyanosis or edema NEURO: Alert and oriented to person, follows commands Vital Signs (last 8hr) Date Time Temp Pulse Resp B/P (MAP) Pulse Ox O2 Delivery O2 Flow Rate FiO2 09/13/24 16:12 98.1 76 19 96/53 100 Nasal Cannula 3.0 09/13/24 12:00 98.4 79 19 106/50 Nasal Cannula 3.0 09/13/24 11:46 77 20 09/13/24 11:45 77 20 N/Cannula Low lpm 2.0 28 LABS: Hematology Labs: Test 09/13/24 05:40 09/12/24 07:31 Range/Units White Blood Count 3.1 #L 4.8-10.8 K/uL Red Blood Count 2.24 L 4.00-5.50 MIL/uL Hemoglobin 7.5 L 12.0-16.0 g/dL Hematocrit 23.3 L 36-48 % Mean Corpuscular Volume 104.0 H 79-99 fL Mean Corpuscular Hemoglobin 33.5 H 27.0-33.0 pg Mean Corpuscular Hemoglobin Concent 32.2 32.0-36.0 g/dL Red Cell Distribution Width 19.4 H 11.0-15.5 % Platelet Count 64 L 130-400 K/uL Mean Platelet Volume 10.9 H 7.5-10.5 fL Immature Granulocyte % (Auto) 1.0 0-1 % Neutrophils (%) (Auto) 83.7 H 40.0-77.0 % Lymphocytes (%) (Auto) 3.8 L 21.0-51.0 % Monocytes (%) (Auto) 10.9 3.0-13.0 % Eosinophils (%) (Auto) 0.6 0.0-8.0 % Basophils (%) (Auto) 0.0 0.0-5.0 % Neutrophils # (Auto) 2.6 1.8-7.7 K/uL Lymphocytes # (Auto) 0.1 L 1.0-4.8 K/uL Monocytes # (Auto) 0.3 0.1-1.0 K/uL Eosinophils # (Auto) 0.02 0.00-0.70 K/uL Basophils # (Auto) 0.00 0.00-0.20 K/uL Absolute Immature Granulocyte (auto 0.03 0-1 K/uL Nucleated Red Blood Cells 0.0 0.0-0.19 % White Cell Morphology Comment See comments Platelet Morphology Comment DECREASED Red Blood Cell Morphology See comments Chemistry Labs: Test 09/13/24 05:40 09/12/24 09:14 Range/Units Sodium Level 140 136-145 mmol/L Potassium Level 3.8 3.5-5.1 mmol/L Chloride Level 109 101-111 mmol/L Carbon Dioxide Level 22 21-32 mmol/L Blood Urea Nitrogen 28 H 7-18 mg/dL Creatinine 1.5 H 0.5-1.0 mg/dL Glomerular Filtration Rate Calc 37 >90 mL/min Random Glucose 101 70-105 mg/dL Total Calcium 7.4 L 8.5-10.1 mg/dL Magnesium Level 2.00 1.80-2.40 mg/dL Total Bilirubin 0.7 0.2-1.0 mg/dL Aspartate Amino Transf (AST/SGOT) 16 10-37 U/L Alanine Aminotransferase (ALT/SGPT) 10 L 12-78 U/L Alkaline Phosphatase 71 50-136 U/L Total Protein 6.1 6.0-8.3 g/dL Albumin 3.0 L 3.5-5.0 g/dL Lactic Acid Level 0.9 0.8-2.5 mmol/L B-Type Natriuretic Peptide 120 H 0-100 pg/mL DIAGNOSTICS / RADIOLOGY RESULTS: [ ] PLAN NEURO: Minimize central acting medications as possible. Maintain fall precautions, adequate lighting during the day PULMONARY: Supplemental 02 as needed. Maintain aspiration precautions at all times Atrovent, pulmicort, mucomyst and CPT. Aggressive pulmonary toileting No steroids at this time Head of Bed Elevated at all times CXR in AM [place] abx therapy to incldue cefepime and doxy tacrolimus level CARDIOVASCULAR: Follow hemodynamics. Vital signs per facility protocol GI & NUTRITION: Continue with nutritional support. Continue stool softeners and laxatives as needed. KIDNEYS & ELECTROLYTES: Strict monitoring of intake, output and overall fluid balance. Avoid nephrotoxic medications to the extent possible. Medications to be dosed according to renal function. Monitor electrolytes and replace as needed ENDOCRINE: Maintain blood glucose between 100-180 at all times. Hypoglycemia protocol in place INFECTIOUS DISEASE: Trend temperature, WBC and procalcitonin level Follow cultures, deescalate antibiotics as soon as possible. Panculture if new onset fever ONCOLOGY/HEMATOLOGY/COAGULATION: Monitor for s/s of bleeding Monitor hemoglobin, coagulation studies as needed SKIN: Pressure ulcer prevention per facility protocol Specialty mattress ORTHO/REHAB: Continue PT/OT Prophylaxis: Continue GI and DVT prophylaxis Code Status: Full Resuscitation Disposition: TBD Other: Total patient care time exceeds 35 minutes excluding all procedures. ARTURO FREGOSO Sep 13, 2024 16:55
[2024-09-13] MEDS: BUDESONIDE 0.25 MG/2 ML INH IH SCH (18:57)
[2024-09-13] MEDS: ALBUTEROL 0.083% 2.5 MG/3 ML INH IH SCH (22:50)
[2024-09-13] MEDS: TACROLIMUS 0.5 MG PO SCH (23:21)
[2024-09-14] VITALS (14 sets, daily range): BP systolic 98–123; BP diastolic 50–63; PULSE 72–101; RESP 16–28; TEMP 97.3–98.7; O2SAT 93–99
--- NOTE | 2024-09-14 08:30 | PN ---
[facility] PROGRESS NOTE Date of Service: Sep 14, 2024 Time of Service: 08:26 SUBJECTIVE: [ ] This is a 51-year-old female that presents in ER with generalized buttock witnessed in fever and chills. Patient was found to have influenza a. She continues the need for oxygen we will have respiratory to titrate as tolerated. She uses CPAP overnight. Device from home. We will get Physical therapy. Continues empiric antibiotics 09/14/2024 patient is seen and examined patient continues on nasal cannula at2 L. Patient reports she does not have home oxygen. Patient continues with dyspnea with minimal exertion. Most likely we will need a 6 minute walk close to discharge. Encouraged patient to continue to use IS while awake. Denied chest pain. REVIEW OF SYSTEMS A12 point ROS was obtained all relevant positive documented otherwise ROS negative PHYSICAL EXAM GENERAL APPEARANCE: The patient is awake, alert, on nasal cannula2 L. Appears acutely ill. NEUROLOGICAL: Cranial nerves II-XII grossly intact. Motor is 5/5 in bilateral upper and lower extremities proximal to distal. No sensory deficits. HEENT: Face is symmetric. Pupils are equal and reactive. Extraocular movements are intact. NECK: Supple. No JVD. No thyromegaly. No submental, submandibular, pre- /postauricular, occipital or supraclavicular lymphadenopathy. CHEST: Normal chest expansion. No Telemetry. LUNGS: Absence of any rales, ++ wheezing. CARDIOVASCULAR: Regular. S1 and S2 normal. No appreciable rubs, murmurs or ga llops. ABDOMEN: Soft, nontender, and nondistended. There is no rebound, voluntary guarding, or rigidity. : Deferred. No Hodgson. EXTREMITIES: Non-edematous and not cyanotic. No clubbing. Good capillary refill. SKIN: No skin breakdown. Vital Signs (last 8hr) Date Time Temp Pulse Resp B/P (MAP) Pulse Ox O2 Delivery O2 Flow Rate FiO2 09/14/24 07:24 72 18 N/Cannula Low lpm 2.0 28 09/14/24 07:11 76 18 09/14/24 07:11 76 19 N/Cannula Low lpm 3.0 32 09/14/24 04:00 97.3 72 24 106/58 99 CPAP LABS: Laboratory: Test 09/13/24 05:40 09/12/24 09:14 09/12/24 09:07 Range/Units White Blood Count 3.1 #L 4.8-10.8 K/uL Red Blood Count 2.24 L 4.00-5.50 MIL/uL Hemoglobin 7.5 L 12.0-16.0 g/dL Hematocrit 23.3 L 36-48 % Mean Corpuscular Volume 104.0 H 79-99 fL Mean Corpuscular Hemoglobin 33.5 H 27.0-33.0 pg Mean Corpuscular Hemoglobin Concent 32.2 32.0-36.0 g/dL Red Cell Distribution Width 19.4 H 11.0-15.5 % Platelet Count 64 L 130-400 K/uL Mean Platelet Volume 10.9 H 7.5-10.5 fL Immature Granulocyte % (Auto) 1.0 0-1 % Neutrophils (%) (Auto) 83.7 H 40.0-77.0 % Lymphocytes (%) (Auto) 3.8 L 21.0-51.0 % Monocytes (%) (Auto) 10.9 3.0-13.0 % Eosinophils (%) (Auto) 0.6 0.0-8.0 % Basophils (%) (Auto) 0.0 0.0-5.0 % Neutrophils # (Auto) 2.6 1.8-7.7 K/uL Lymphocytes # (Auto) 0.1 L 1.0-4.8 K/uL Monocytes # (Auto) 0.3 0.1-1.0 K/uL Eosinophils # (Auto) 0.02 0.00-0.70 K/uL Basophils # (Auto) 0.00 0.00-0.20 K/uL Absolute Immature Granulocyte (auto 0.03 0-1 K/uL Nucleated Red Blood Cells 0.0 0.0-0.19 % Sodium Level 140 136-145 mmol/L Potassium Level 3.8 3.5-5.1 mmol/L Chloride Level 109 101-111 mmol/L Carbon Dioxide Level 22 21-32 mmol/L Blood Urea Nitrogen 28 H 7-18 mg/dL Creatinine 1.5 H 0.5-1.0 mg/dL Glomerular Filtration Rate Calc 37 >90 mL/min Random Glucose 101 70-105 mg/dL Total Calcium 7.4 L 8.5-10.1 mg/dL Magnesium Level 2.00 1.80-2.40 mg/dL Total Bilirubin 0.7 0.2-1.0 mg/dL Aspartate Amino Transf (AST/SGOT) 16 10-37 U/L Alanine Aminotransferase (ALT/SGPT) 10 L 12-78 U/L Alkaline Phosphatase 71 50-136 U/L Total Protein 6.1 6.0-8.3 g/dL Albumin 3.0 L 3.5-5.0 g/dL Lactic Acid Level 0.9 0.8-2.5 mmol/L B-Type Natriuretic Peptide 120 H 0-100 pg/mL Blood Gas Specimen Type Arterial Arterial Blood pH 7.484 H 7.350-7.450 Arterial Blood Partial Pressure CO2 26 L 32-45 mmHg Arterial Blood Partial Pressure O2 86.7 83.0-108.0 mmHg Arterial Blood HCO3 19.1 L 21.0-28.0 mmol/L Arterial Blood Oxygen Saturation 97.3 94.0-98.0 % Arterial Blood Base Excess -2.6 L -2.0-3.0 mmol/L Blood Gas Temperature 37.0 35.5-37.0 CELSIUS Blood Gas Flow-by 2.00 0.00-15.00 L/min Blood Gas Vent Mode NC ROOM AIR FiO2 28.0 % Blood Gas Specimen Comment LR, Current Medications Medications (Trade) Dose Ordered Sig/Sandy Route PRN Reason Start Time Stop Time Status Last Admin Dose Admin Acetaminophen (TYLenol 325MG TAB) 650 mg Q4H PRN PO TEMPERATURE GREATER THAN 101.5 09/12/24 10:00 09/12/24 12:37 DC Acetaminophen (TYLenol 325MG TAB) 650 mg Q4H PRN PO TEMPERATURE GREATER THAN 101.5 09/12/24 12:30 10/12/24 12:29 09/13/24 23:18 650 MG Acetaminophen (TYLenol 325MG TAB) 650 mg Q6H PRN PO MILD PAIN (1-3) 09/13/24 22:00 10/13/24 21:59 Albuterol (DUOneb) 1 UDVIAL [id number] 09/12/24 12:00 09/12/24 21:30 DC 09/12/24 19:00 1 UDVIAL Albuterol Sulfate (Proventil 0.083% 2.5mg/3ml) 2.5MG = 3ML [id number] IH 09/13/24 12:00 10/13/24 11:59 09/14/24 07:09 2.5 MG Allopurinol (ZYLOprim 100MG) 100 mg DAILY PO 09/13/24 09:00 10/13/24 08:59 09/13/24 08:41 100 MG Apixaban (EliquIS) 5 mg BID PO 09/12/24 21:00 10/12/24 20:59 09/13/24 21:18 5 MG Azithromycin 250 ml @ 250 mls/hr Q24H IVPB 09/12/24 12:30 09/13/24 15:26 DC 09/13/24 12:27 250 MLS/HR Budesonide (Pulmicort 0.25mg/2ml) 0.25 mg BIDRESP 09/13/24 18:00 10/13/24 17:59 09/14/24 07:09 0.25 MG Doxycycline Hyclate 250 ml @ 125 mls/hr Q12H IV 09/12/24 12:30 09/22/24 12:29 09/14/24 00:08 125 MLS/HR Famotidine (Pepcid 20mg Tab) 20 mg DAILY PO 09/12/24 21:00 10/12/24 20:59 09/13/24 08:41 20 MG Folic Acid (FOLic ACID 1 MG TABLET) 1 mg DAILY PO 09/13/24 09:00 10/13/24 08:59 09/13/24 08:41 1 MG Guaifenesin/ Dextromethorphan (RobiTUSSin DM 200/20MG 10ML) 10 ml Q4H PO 09/12/24 12:00 10/12/24 11:59 09/13/24 21:17 10 ML Home Med (Home Medication) Copper Gluconate (Copper... DAILY PO 09/13/24 09:00 10/13/24 08:59 Home Med (Home Medication) Macitentan (Opsumit) 1 TAB DAILY PO 09/13/24 09:00 10/13/24 08:59 Home Med (Home Medication) Tadalafil 20 MG DAILY PO 09/13/24 09:00 10/13/24 08:59 Home Med (Home Medication) Tenofovir Disoproxil Fumar... DAILY PO 09/13/24 09:00 4/6/25 08:59 Ipratropium [place] (AtrovENT UD) 0.5 MG [id number] IH 09/13/24 00:00 10/13/24 00:00 09/14/24 07:09 0.5 MG Loperamide HCl (Imodium) 2 mg Q6H PRN PO DIARRHEA 09/13/24 21:30 10/13/24 21:29 Magnesium Sulfate 50 ml @ 0 mls/hr PROTOCOL PRN IV low mag level 09/12/24 12:00 10/12/24 11:59 Metoprolol Succinate (TopROL XL) 12.5 mg HS PO 09/12/24 20:00 10/13/24 08:59 09/13/24 21:17 12.5 MG Metoprolol Succinate (TopROL XL) 12.5 mg HS PO 09/12/24 21:00 09/12/24 19:56 DC Metoprolol Succinate (TopROL XL) 25 mg DAILY PO 09/13/24 09:00 09/12/24 19:50 DC Ondansetron HCl (zoFRAN 4MG INJ) 4 mg Q6H PRN IVP NAUSEA/VOMITING 09/12/24 10:00 10/12/24 09:59 Oseltamivir Phosphate (Tamiflu) 75 mg BID PO 09/12/24 21:00 09/12/24 12:02 DC Oseltamivir Phosphate (Tamiflu) 75 mg Q24H PO 09/12/24 13:00 09/17/24 12:59 09/13/24 12:27 75 MG Pharmacy Profile Note (Pharmacy Communication) 1 each ONCE MISC 09/13/24 11:00 09/13/24 11:01 DC Potassium Chloride 100 ml @ 50 mls/hr AD PRN IV POTASSIUM PROTOCOL 09/12/24 12:00 10/12/24 11:59 Potassium Chloride 100 ml @ 100 mls/hr AD PRN IV POTASSIUM PROTOCOL 09/13/24 00:00 09/12/24 23:59 DC Potassium Chloride 100 ml @ 100 mls/hr AD PRN IV POTASSIUM PROTOCOL 09/13/24 00:00 10/13/24 00:00 Potassium Chloride (K-Dur 10meq Sr Tab) 10 meq AD PRN PO POTASSIUM PROTOCOL 09/13/24 11:00 10/13/24 00:00 Potassium Chloride (K-Dur/Klor-Con 20meq) 10 meq AD PRN PO POTASSIUM PROTOCOL 09/13/24 00:00 09/13/24 10:31 DC Potassium Chloride (KCl 10% Elixir 20meq/15ml) 10 meq AD PRN PO POTASSIUM PROTOCOL 09/13/24 00:00 10/13/24 00:00 Sertraline HCl (ZOloft 50 mg tab) 100 mg DAILY PO 09/13/24 09:00 10/13/24 08:59 Sodium Chloride 1,000 ml @ 75 mls/hr [id number] IV 09/12/24 10:00 09/13/24 00:28 DC 09/12/24 23:22 75 MLS/HR Spironolactone (Aldactone 25mg) 25 mg DAILY PO 09/13/24 09:00 10/13/24 08:59 Tacrolimus (ProgRAF 0.5MG) 0.5 mg HS PO 09/13/24 22:00 10/13/24 21:59 09/13/24 23:21 0.5 MG Tacrolimus (ProgRAF 1MG) 1 mg DAILY PO 09/13/24 09:00 10/13/24 08:59 09/13/24 08:41 1 MG Torsemide (Demadex) 20 mg BID PO 09/12/24 21:00 09/13/24 15:26 DC 09/13/24 08:42 20 MG DIAGNOSTICS / RADIOLOGY: [ ] ASSESSMENT: Acute respiratory failure with hypoxia POA Sepsis secondary to viral syndrome influenza a POA Positive influenza a infection POA Viral syndrome POA Immunosuppression state on Prograf POA Hypercoagulable state secondary AFib t on Eliquis POA Anemia on chronic renal failure POA Acute on chronic renal failure POA History liver transplant on immunosuppressive drugs prograf POA Moderate protein calorie malnutrition. POA Chronic heart failure unknown LV EF per patient PLAN: Admit: Medical-surgical floor droplet isolation condition: Guarded Status: Full code IVF: Heplock Diet heart healthy, aspiration precautions Consultants medical advisor's Antibiotics: Tamiflu 75 mg p.o. daily doxycycline IV cefepime IV Atrovent, pulmicort, mucomyst and CPT. Aggressive pulmonary toileting Continue with home CPAP bedtime continue oxygen supplement to keep O2 sats above 92%. 6 minute walk close to discharge. Encouraged patient to use IS while awake out of bed to chair as tolerated. Labs cbc, cmp, mag Replace electrolytes as needed as per protocol to keep potassium above 4.0 magnesium 2.0. PRN: MEDICATIONS Tylenol 650 mg po every 4 hrs for fever Zofran 4 mg IV every 6 hrs for n/v Supportive measures: DVT ppx, GI ppx all questions answered Supervising MD: Dr. Tejinder Warren c/d This document was generated in part using voice recognition software, occasional wrong word or sound alike substitutions may have occurred due to the inherent limitations of voice recognition software. Read the chart carefully and recognize using context, where the substitutions have occurred. Although every effort was made to edit the content, linux server administrator and typing errors may occur ATTESTATION BY PHYSICIAN I have seen and examined the patient. I reviewed the documentation, medical d ecision making, and treatment plan as noted by the mid-level provider above. I agree with the findings and plan of care. LAITH SOLANO MD, ELIZABETH NP Sep 14, 2024 08:30 TEJINDER WARREN MD Sep 15, 2024 16:48
[2024-09-14 09:14] LABS: EOSINOPHILS # (AUTO) 0.07 K/uL (0.00-0.70); EOSINOPHILS % (AUTO) 2.4 % (0.0-8.0); HEMATOCRIT 24.2 % (36-48); IMMATURE GRANULOCYTE ABSOLUTE 0.03 K/uL (0-1); LYMPHOCYTES # (AUTO) 0.2 K/uL (1.0-4.8); LYMPHOCYTES % (AUTO) 7.3 % (21.0-51.0); MEAN CORPUSCULAR HEMOGLOBIN 33.3 pg (27.0-33.0); MEAN CORPUSCULAR HGB CONC 32.2 g/dL (32.0-36.0); MEAN CORPUSCULAR VOLUME 103.4 fL (79-99); MONOCYTES # (AUTO) 0.3 K/uL (0.1-1.0); MONOCYTES % (AUTO) 8.7 % (3.0-13.0); NEUTROPHILS # (AUTO) 2.3 K/uL (1.8-7.7); NEUTROPHILS % (AUTO) 80.6 % (40.0-77.0); PLATELET COUNT (AUTO) 68 K/uL (130-400); RED BLOOD CELL COUNT(AUTO) 2.34 MIL/uL (4.00-5.50); RED CELL DISTRIBUTION WIDTH 19.2 % (11.0-15.5); WHITE BLOOD COUNT (AUTO) 2.9 K/uL (4.8-10.8)
[2024-09-14 09:24] LABS: CREATININE 1.7 mg/dL (0.5-1.0); POTASSIUM 3.6 mmol/L (3.5-5.1)
[2024-09-14 09:30] LABS: ALBUMIN 3.2 g/dL (3.5-5.0); BILIRUBIN,TOTAL 0.7 mg/dL (0.2-1.0); TOTAL PROTEIN, SERUM 6.3 g/dL (6.0-8.3)
[2024-09-14 10:02] LABS: % IRON SATURATION 30.4 % (22-44); IRON, SERUM 45 mcg/dL (50-170); TOTAL IRON BINDING CAPACITY 148 mcg/dL (250-450)
[2024-09-14 10:15] LABS: BAND NEUTROPHILS % (MANUAL) 5 % (0-2); EOSINOPHILS % (MANUAL) 1 % (1-6); LYMPHOCYTES % (MANUAL) 6 % (22-44); MAN.DIFF COMMENT-IMPRESSION MANUAL DIFFERENTIAL; MONOCYTES % (MANUAL) 4 % (2-9); PLATELET MORPHOLOGY COMMENT DECREASED; SEGMENTED NEUTROPHILS % 84 % (40-70); TOTAL CELLS COUNTED 100
[2024-09-14 10:50] LABS: FERRITIN 1294 ng/mL (15-150)
--- NOTE | 2024-09-14 14:30 | HMCIMG ---
CHEST 1VW HISTORY: Pneumonia COMPARISON: None FINDINGS: A frontal projection of the chest was obtained. Mild right lower lung pulmonary infiltrates are seen. The heart is borderline enlarged. All the lines and tubes are again seen in place. No evidence of aortic calcification is seen. IMPRESSION: 1. Mild right lower lung pulmonary infiltrates.
--- NOTE | 2024-09-14 15:52 | PN ---
[facility] PROGRESS NOTE Date Patient Seen: Sep 14, 2024 Time of Visit: 15:49 Supervising Physician: DARINEL BENDER MD PROBLEM LIST: Acute on chronic hypoxemic respiratory failure, home O2 dependent Influenza a infection w superimposed Bacterial PNA Chronic congestive heart failure, unknown LVEF for patient Pancytopenia secondary to immunocompromised state from liver transplant History of liver transplant on tacrolimus Pulmonary hypertension History of aortic stenosis status post remote TAVR with bovine valve Paroxysmal atrial fibrillation on Eliquis INTERVAL HISTORY: Patient was seen and examined today by me at bedside, the patient was weak, deconditioned, continues with dyspnea and cough that has productive in nature. Last documented fever was on 09/12/2024. At 100.9. She continues on Tamiflu, antibiotic therapy will be broadened to include Diflu can, vanco, cefepime and doxy. Infectious Disease specialist will be consulted given the patient's underlying immunosuppression. Chest x-ray continues to reveal right-sided consolidation. She does complain of oral thrush. REVIEW OF SYSTEMS: 12 point ROS reviewed with patient. Pertinent positives mentioned above. Otherwise negative. PHYSICAL EXAM: GENERAL: alert, weak, awake oriented x 3 HEENT: EOMI, Sclera non icteric, moist mucosa NECK: Supple, no JVD, trachea midline LUNGS: tight air entry, dyspneic, tachypneic HEART: Regular rate and rhythm. Normal S1 and S2, without murmurs ABD: Abdomen soft, nontender. Bowel sounds present EXT: No clubbing cyanosis or edema NEURO: Alert and oriented to person, follows commands Vital Signs (last 8hr) Date Time Temp Pulse Resp B/P (MAP) Pulse Ox O2 Delivery O2 Flow Rate FiO2 09/14/24 12:00 98.2 84 20 98/60 97 Nasal Cannula 2.0 24 09/14/24 11:06 82 19 09/14/24 08:00 97.9 74 16 100/50 97 Nasal Cannula 2.0 24 09/14/24 08:00 97 Nasal Cannula* 2 28 LABS: Hematology Labs: Test 09/14/24 08:40 Range/Units White Blood Count 2.9 L 4.8-10.8 K/uL Red Blood Count 2.34 L 4.00-5.50 MIL/uL Hemoglobin 7.8 L 12.0-16.0 g/dL Hematocrit 24.2 L 36-48 % Mean Corpuscular Volume 103.4 H 79-99 fL Mean Corpuscular Hemoglobin 33.3 H 27.0-33.0 pg Mean Corpuscular Hemoglobin Concent 32.2 32.0-36.0 g/dL Red Cell Distribution Width 19.2 H 11.0-15.5 % Platelet Count 68 L 130-400 K/uL Mean Platelet Volume 11.1 H 7.5-10.5 fL Immature Granulocyte % (Auto) 1.0 0-1 % Neutrophils (%) (Auto) 80.6 H 40.0-77.0 % Lymphocytes (%) (Auto) 7.3 L 21.0-51.0 % Monocytes (%) (Auto) 8.7 3.0-13.0 % Eosinophils (%) (Auto) 2.4 0.0-8.0 % Basophils (%) (Auto) 0.0 0.0-5.0 % Neutrophils # (Auto) 2.3 1.8-7.7 K/uL Lymphocytes # (Auto) 0.2 L 1.0-4.8 K/uL Monocytes # (Auto) 0.3 0.1-1.0 K/uL Eosinophils # (Auto) 0.07 0.00-0.70 K/uL Basophils # (Auto) 0.00 0.00-0.20 K/uL Absolute Immature Granulocyte (auto 0.03 0-1 K/uL Segmented Neutrophils % 84 H 40-70 % Band Neutrophils % 5 H 0-2 % Lymphocytes % (Manual) 6 L 22-44 % Monocytes % (Manual) 4 2-9 % Eosinophils % (Manual) 1 1-6 % Nucleated Red Blood Cells 0.0 0.0-0.19 % Differential Comment MANUAL DIFFERENTIAL White Cell Morphology Comment Platelet Morphology Comment DECREASED Red Blood Cell Morphology See comments Reticulocyte Count (auto) 2.30948 H 0.42-2.23 % Immature Reticulocyte Fraction 19.90 H 0.18-0.48 % Chemistry Labs: Test 09/14/24 08:40 Range/Units Sodium Level 137 136-145 mmol/L Potassium Level 3.6 3.5-5.1 mmol/L Chloride Level 107 101-111 mmol/L Carbon Dioxide Level 24 21-32 mmol/L Blood Urea Nitrogen 31 H 7-18 mg/dL Creatinine 1.7 H 0.5-1.0 mg/dL Glomerular Filtration Rate Calc 32 >90 mL/min Random Glucose 99 70-105 mg/dL Total Calcium 7.6 L 8.5-10.1 mg/dL Magnesium Level 2.00 1.80-2.40 mg/dL Iron Level 45 L 50-170 mcg/dL Total Iron Binding Capacity 148 L 250-450 mcg/dL Percent Iron Saturation 30.4 22-44 % Ferritin 1294 H 15-150 ng/mL Total Bilirubin 0.7 0.2-1.0 mg/dL Aspartate Amino Transf (AST/SGOT) 18 10-37 U/L Alanine Aminotransferase (ALT/SGPT) 9 L 12-78 U/L Alkaline Phosphatase 72 50-136 U/L Total Protein 6.3 6.0-8.3 g/dL Albumin 3.2 L 3.5-5.0 g/dL Vitamin B12 Level 393 193-986 pg/mL Folic Acid (LAB) > 20.00 H 2-20 ng/mL DIAGNOSTICS / RADIOLOGY RESULTS: REASON: pna ORDERING PHYSICIAN: ARTURO FREGOSO PROCEDURE: CXR1VW - CHEST 1VW CHEST 1VW HISTORY: Pneumonia COMPARISON: None FINDINGS: A frontal projection of the chest was obtained. Mild right lower lung pulmonary infiltrates are seen. The heart is borderline enlarged. All the lines and tubes are again seen in place. No evidence of aortic calcification is seen. IMPRESSION: 1. Mild right lower lung pulmonary infiltrates. PLAN NEURO: Minimize central acting medications as possible. Maintain fall precautions, adequate lighting during the day PULMONARY: Supplemental 02 as needed. Maintain aspiration precautions at all times Atrovent, pulmicort, mucomyst and CPT. Aggressive pulmonary toileting No steroids at this time Head of Bed Elevated at all times CXR in AM Broadend abx therapy to incldue cefepime and doxy tacrolimus level CARDIOVASCULAR: Follow hemodynamics. Vital signs per facility protocol GI & NUTRITION: Continue with nutritional support. Continue stool softeners and laxatives as needed. KIDNEYS & ELECTROLYTES: Strict monitoring of intake, output and overall fluid balance. Avoid nephrotoxic medications to the extent possible. Medications to be dosed according to renal function. Monitor electrolytes and replace as needed ENDOCRINE: Maintain blood glucose between 100-180 at all times. Hypoglycemia protocol in place INFECTIOUS DISEASE: Trend temperature, WBC and procalcitonin level Follow cultures, deescalate antibiotics as soon as possible. Panculture if new onset fever ONCOLOGY/HEMATOLOGY/COAGULATION: Monitor for s/s of bleeding Monitor hemoglobin, coagulation studies as needed SKIN: Pressure ulcer prevention per facility protocol Specialty mattress ORTHO/REHAB: Continue PT/OT Prophylaxis: Continue GI and DVT prophylaxis Code Status: Full Resuscitation Disposition: TBD Other: Total patient care time exceeds 35 minutes excluding all procedures. ARTURO FREGOSO Sep 14, 2024 15:52
[2024-09-14] MEDS ORDERED: VANCOMYCIN PROTOCOL PER PHARMACY IV SCH (16:00)
[2024-09-14] MEDS: fluCONazole 200 MG/NS 100 ML IV SCH (16:12)
[2024-09-14] MEDS: VANCOMYCIN 1.75 GM/250 ML BAG 250 ML IV ONE (16:13)
[2024-09-14] MEDS: NYSTatin 100000 UNIT/ML 5ML UDCUP PO SCH (16:14)
[2024-09-14] MEDS: ondanSETRON 4MG INJ IVP PRN (17:20)
[2024-09-14] MEDS: TORSEMIDE 20 MG TAB PO ONE (20:42)
[2024-09-15] VITALS (11 sets, daily range): BP systolic 92–104; BP diastolic 51–60; PULSE 72–113; RESP 18–26; TEMP 98–98.4; O2SAT 94–99
--- NOTE | 2024-09-15 07:44 | NUR ---
PATIENT UPDATE PT RECEIVED LAST NIGHT COMPLAINING OF SHORTNESS OF BREATH WITH O2 ON AT 3L PER N/C. CONTINUES WITH THE ATROVENT NEBS TX PRESCRIBED. HOB UP AT 45 DEGREES. WAS STARTED BY JAIDEN WITH 2 NEW ANTIBIOTICS -VANCOMYCIN AND DIFLUCAN. PT WITH ALL THESE QUESTIONS ABOUT SO MANY ANTIBIOTICS, STATED THAT SHE DEVELOPED A BAD CDIFFICILE INFECTION BEFORE WHEN SHE WAS PUT ON A LOT OF ANTIBIOTICS. DR. DREW CALLED AND WAS MADE AWARE ABOUT THE CONSULT, STATED HE'LL COME AND SEE THE PT THIS AM. SHE ASKED ABOUT HER TORSEMIDE MED WHICH SHE SAID WASN'T RESUMED. CALLED Barb HWANG WHO ORDERED 1 DOSE FOR LAST NIGHT AND STATED THAT HE'LL CLARIFY WITH DR. LLANES WHY THE MED WAS DISCONTINUED YESTERDAY. MARIAMA HALLMAN STAPLER MACHINE WAS ALSO CALLED LAST NIGHT ABOUT PT BEING ANXIOUS ABOUT THE PERSISTENT CONGESTION AND NEW MEDS. ORDERED A BNP AND TROPONIN LEVEL AND A 2D ECHO FOR THIS AM. DISCUSSED THE POSSIBILITY OF A PICC LINE PLACEMENT BUT THE PLATELET COUNT HAD BEEN IN THE 60'S AND PT IS ON ELIQUIS. MONITORED CLOSELY FOR BLEEDING TENDENCIES. MINIMAL BLEEDING IN THE LOWER LIP LAST NIGHT WHICH STOPPED RIGHT AWAY.SLEPT FAIRLY OVERNIGHT WITH HER CPAP MASK FROM HOME WITH OXYGEN BLEND IN.
[2024-09-15] MEDS: LOPERAMIDE HCL 2 MG CAP PO PRN (09:11)
--- NOTE | 2024-09-15 09:51 | PN ---
[facility] PROGRESS NOTE Date of Service: Sep 15, 2024 Time of Service: 09:49 SUBJECTIVE: [ ] This is a 51-year-old female that presents in ER with generalized buttock witnessed in fever and chills. Patient was found to have influenza a. She continues the need for oxygen we will have respiratory to titrate as tolerated. She uses CPAP overnight. Device from home. We will get Physical therapy. Continues empiric antibiotics 09/14/2024 patient is seen and examined patient continues on nasal cannula at2 L. Patient reports she does not have home oxygen. Patient continues with dyspnea with minimal exertion. Most likely we will need a 6 minute walk close to discharge. Encouraged patient to continue to use IS while awake. Denied chest pain. 09/15/24 received patient is sitting in chair nasal cannula 2 L. Dyspneic with minimal exertion. Patient we will get a Impella to be used every hour while awake. Patient we will need a 6 minute walk close to discharge she does use CPAP at home. Denied chest pain. REVIEW OF SYSTEMS A12 point ROS was obtained all relevant positive documented otherwise ROS negative PHYSICAL EXAM GENERAL APPEARANCE: The patient is awake, alert, on nasal cannula2 L. Appears acutely ill. NEUROLOGICAL: Cranial nerves II-XII grossly intact. Motor is 5/5 in bilateral upper and lower extremities proximal to distal. No sensory deficits. HEENT: Face is symmetric. Pupils are equal and reactive. Extraocular movements are intact. NECK: Supple. No JVD. No thyromegaly. No submental, submandibular, pre- /postauricular, occipital or supraclavicular lymphadenopathy. CHEST: Normal chest expansion. No Telemetry. LUNGS: Absence of any rales, ++ wheezing. CARDIOVASCULAR: Regular. S1 and S2 normal. No appreciable rubs, murmurs or gallops. ABDOMEN: Soft, nontender, and nondistended. There is no rebound, voluntary guarding, or rigidity. : Deferred. No Hodgson. EXTREMITIES: Non-edematous and not cyanotic. No clubbing. Good capillary refill. SKIN: No skin breakdown. Vital Signs (last 8hr) Date Time Temp Pulse Resp B/P (MAP) Pulse Ox O2 Delivery O2 Flow Rate FiO2 09/15/24 08:00 98.1 83 18 95/60 94 Nasal Cannula 2.0 09/15/24 07:09 72 18 N/Cannula Low lpm 2.0 28 09/15/24 07:09 72 19 09/15/24 05:05 98.4 84 26 96/53 97 CPAP LABS: Laboratory: Test 09/14/24 21:25 09/14/24 08:40 Range/Units Troponin I High Sensitivity 26 4-50 ng/L B-Type Natriuretic Peptide 96 0-100 pg/mL White Blood Count 2.9 L 4.8-10.8 K/uL Red Blood Count 2.34 L 4.00-5.50 MIL/uL Hemoglobin 7.8 L 12.0-16.0 g/dL Hematocrit 24.2 L 36-48 % Mean Corpuscular Volume 103.4 H 79-99 fL Mean Corpuscular Hemoglobin 33.3 H 27.0-33.0 pg Mean Corpuscular Hemoglobin Concent 32.2 32.0-36.0 g/dL Red Cell Distribution Width 19.2 H 11.0-15.5 % Platelet Count 68 L 130-400 K/uL Mean Platelet Volume 11.1 H 7.5-10.5 fL Immature Granulocyte % (Auto) 1.0 0-1 % Neutrophils (%) (Auto) 80.6 H 40.0-77.0 % Lymphocytes (%) (Auto) 7.3 L 21.0-51.0 % Monocytes (%) (Auto) 8.7 3.0-13.0 % Eosinophils (%) (Auto) 2.4 0.0-8.0 % Basophils (%) (Auto) 0.0 0.0-5.0 % Neutrophils # (Auto) 2.3 1.8-7.7 K/uL Lymphocytes # (Auto) 0.2 L 1.0-4.8 K/uL Monocytes # (Auto) 0.3 0.1-1.0 K/uL Eosinophils # (Auto) 0.07 0.00-0.70 K/uL Basophils # (Auto) 0.00 0.00-0.20 K/uL Absolute Immature Granulocyte (auto 0.03 0-1 K/uL Segmented Neutrophils % 84 H 40-70 % Band Neutrophils % 5 H 0-2 % Lymphocytes % (Manual) 6 L 22-44 % Monocytes % (Manual) 4 2-9 % Eosinophils % (Manual) 1 1-6 % Nucleated Red Blood Cells 0.0 0.0-0.19 % Differential Comment MANUAL DIFFERENTIAL White Cell Morphology Comment Platelet Morphology Comment DECREASED Red Blood Cell Morphology See comments Reticulocyte Count (auto) 2.06919 H 0.42-2.23 % Immature Reticulocyte Fraction 19.90 H 0.18-0.48 % Sodium Level 137 136-145 mmol/L Potassium Level 3.6 3.5-5.1 mmol/L Chloride Level 107 101-111 mmol/L Carbon Dioxide Level 24 21-32 mmol/L Blood Urea Nitrogen 31 H 7-18 mg/dL Creatinine 1.7 H 0.5-1.0 mg/dL Glomerular Filtration Rate Calc 32 >90 mL/min Random Glucose 99 70-105 mg/dL Total Calcium 7.6 L 8.5-10.1 mg/dL Magnesium Level 2.00 1.80-2.40 mg/dL Iron Level 45 L 50-170 mcg/dL Total Iron Binding Capacity 148 L 250-450 mcg/dL Percent Iron Saturation 30.4 22-44 % Ferritin 1294 H 15-150 ng/mL Total Bilirubin 0.7 0.2-1.0 mg/dL Aspartate Amino Transf (AST/SGOT) 18 10-37 U/L Alanine Aminotransferase (ALT/SGPT) 9 L 12-78 U/L Alkaline Phosphatase 72 50-136 U/L Total Protein 6.3 6.0-8.3 g/dL Albumin 3.2 L 3.5-5.0 g/dL Vitamin B12 Level 393 193-986 pg/mL Folic Acid (LAB) > 20.00 H 2-20 ng/mL Current Medications Medications (Trade) Dose Ordered Sig/Sandy Route PRN Reason Start Time Stop Time Status Last Admin Dose Admin Acetaminophen (TYLenol 325MG TAB) 650 mg Q4H PRN PO TEMPERATURE GREATER THAN 101.5 09/12/24 10:00 09/12/24 12:37 DC Acetaminophen (TYLenol 325MG TAB) 650 mg Q4H PRN PO TEMPERATURE GREATER THAN 101.5 09/12/24 12:30 10/12/24 12:29 09/13/24 23:18 650 MG Acetaminophen (TYLenol 325MG TAB) 650 mg Q6H PRN PO MILD PAIN (1-3) 09/13/24 22:00 10/13/24 21:59 Albuterol (DUOneb) 1 UDVIAL [id number] IH 09/12/24 12:00 09/12/24 21:30 DC 09/12/24 19:00 1 UDVIAL Albuterol Sulfate (Proventil 0.083% 2.5mg/3ml) 2.5MG = 3ML [id number] 09/13/24 12:00 10/13/24 11:59 09/15/24 07:06 2.5 MG Allopurinol (ZYLOprim 100MG) 100 mg DAILY PO 09/13/24 09:00 10/13/24 08:59 09/15/24 08:40 100 MG Apixaban (EliquIS) 5 mg BID PO 09/12/24 21:00 10/12/24 20:59 09/15/24 08:40 5 MG Azithromycin 250 ml @ 250 mls/hr Q24H IVPB 09/12/24 12:30 09/13/24 15:26 DC 09/13/24 12:27 250 MLS/HR Budesonide (Pulmicort 0.25mg/2ml) 0.25 mg BIDRESP 09/13/24 18:00 10/13/24 17:59 09/15/24 07:06 0.25 MG Doxycycline Hyclate 250 ml @ 125 mls/hr Q12H IV 09/12/24 12:30 09/22/24 12:29 09/15/24 00:37 125 MLS/HR Famotidine (Pepcid 20mg Tab) 20 mg DAILY PO 09/12/24 21:00 10/12/24 20:59 09/15/24 08:39 20 MG Fluconazole/ Sodium Chloride (DiFLUCan 200 MG/ NS 100 ML) 200 mg Q24H IV 09/14/24 16:00 10/14/24 15:59 09/14/24 16:12 200 MG Folic Acid (FOLic ACID 1 MG TABLET) 1 mg DAILY PO 09/13/24 09:00 10/13/24 08:59 09/15/24 08:39 1 MG Guaifenesin/ Dextromethorphan (RobiTUSSin DM 200/20MG 10ML) 10 ml Q4H PO 09/12/24 12:00 09/14/24 20:31 DC 09/14/24 13:07 10 ML Guaifenesin/ Dextromethorphan (RobiTUSSin DM 200/20MG 10ML) 10 ml Q4H PRN PO COUGH 09/14/24 20:30 10/12/24 11:59 Home Med (Home Medication) Copper Gluconate (Copper... DAILY PO 09/13/24 09:00 10/13/24 08:59 09/15/24 08:43 1 EACH Home Med (Home Medication) Macitentan (Opsumit) 1 TAB DAILY PO 09/13/24 09:00 10/13/24 08:59 09/15/24 08:42 1 EACH Home Med (Home Medication) Tadalafil 20 MG DAILY PO 09/13/24 09:00 10/13/24 08:59 09/15/24 08:43 1 EACH Home Med (Home Medication) Tenofovir Disoproxil Fumar... DAILY PO 09/13/24 09:00 10/13/24 08:59 09/15/24 08:43 1 EACH Ipratropium [place] (AtrovENT UD) 0.5 MG [id number] IH 09/13/24 00:00 10/13/24 00:00 09/15/24 07:06 0.5 MG Loperamide HCl (Imodium) 2 mg Q6H PRN PO DIARRHEA 09/13/24 21:30 10/13/24 21:29 09/15/24 09:11 2 MG Magnesium Sulfate 50 ml @ 0 mls/hr PROTOCOL PRN IV low mag level 09/12/24 12:00 10/12/24 11:59 Metoprolol Succinate (TopROL XL) 12.5 mg HS PO 09/12/24 20:00 10/13/24 08:59 09/14/24 20:42 12.5 MG Metoprolol Succinate (TopROL XL) 12.5 mg HS PO 09/12/24 21:00 09/12/24 19:56 DC Metoprolol Succinate (TopROL XL) 25 mg DAILY PO 09/13/24 09:00 09/12/24 19:50 DC Nystatin (NYSTatin 995414 UNIT/ML 5ML UDCUP) 5 ml QID PO 09/14/24 17:00 10/14/24 16:59 09/15/24 08:39 5 ML Ondansetron HCl (zoFRAN 4MG INJ) 4 mg Q6H PRN IVP NAUSEA/VOMITING 09/12/24 10:00 10/12/24 09:59 09/14/24 17:20 4 MG Oseltamivir Phosphate (Tamiflu) 75 mg BID PO 09/12/24 21:00 09/12/24 12:02 DC Oseltamivir Phosphate (Tamiflu) 75 mg Q24H PO 09/12/24 13:00 09/17/24 12:59 09/14/24 13:07 75 MG Pharmacy Profile Note (Pharmacy Communication) 1 each ONCE MISC 09/13/24 11:00 09/13/24 11:01 DC Potassium Chloride 100 ml @ 50 mls/hr AD PRN IV POTASSIUM PROTOCOL 09/12/24 12:00 10/12/24 11:59 Potassium Chloride 100 ml @ 100 mls/hr AD PRN IV POTASSIUM PROTOCOL 09/13/24 00:00 09/12/24 23:59 DC Potassium Chloride 100 ml @ 100 mls/hr AD PRN IV POTASSIUM PROTOCOL 09/13/24 00:00 10/13/24 00:00 Potassium Chloride (K-Dur 10meq Sr Tab) 10 meq AD PRN PO POTASSIUM PROTOCOL 09/13/24 11:00 10/13/24 00:00 Potassium Chloride (K-Dur/Klor-Con 20meq) 10 meq AD PRN PO POTASSIUM PROTOCOL 09/13/24 00:00 09/13/24 10:31 DC Potassium Chloride (KCl 10% Elixir 20meq/15ml) 10 meq AD PRN PO POTASSIUM PROTOCOL 09/13/24 00:00 10/13/24 00:00 Sertraline HCl (ZOloft 50 mg tab) 100 mg DAILY PO 09/13/24 09:00 10/13/24 08:59 09/15/24 08:40 100 MG Sodium Chloride 1,000 ml @ 75 mls/hr [id number] IV 09/12/24 10:00 09/13/24 00:28 DC 09/12/24 23:22 75 MLS/HR Spironolactone (Aldactone 25mg) 25 mg DAILY PO 09/13/24 09:00 10/13/24 08:59 09/15/24 08:40 25 MG Tacrolimus (ProgRAF 0.5MG) 0.5 mg HS PO 09/13/24 22:00 10/13/24 21:59 09/14/24 20:41 0.5 MG Tacrolimus (ProgRAF 1MG) 1 mg DAILY PO 09/13/24 09:00 10/13/24 08:59 09/15/24 08:39 1 MG Torsemide (Demadex) 20 mg BID PO 09/12/24 21:00 09/13/24 15:26 DC 09/13/24 08:42 20 MG Vancomycin HCl (Vancomycin 750mg) 750 mg Q24H IVPB 09/15/24 16:30 09/25/24 16:29 Vancomycin HCl (Vancomycin Protocol) 1 each AD IV 09/14/24 16:00 09/28/24 15:59 DIAGNOSTICS / RADIOLOGY: [ ] ASSESSMENT: Acute respiratory failure with hypoxia POA Sepsis secondary to viral syndrome influenza a POA Positive influenza a infection POA Viral syndrome POA Immunosuppression state on Prograf POA Hypercoagulable state secondary AFib t on Eliquis POA Anemia on chronic renal failure POA Acute on chronic renal failure POA History liver transplant on immunosuppressive drugs prograf POA Moderate protein calorie malnutrition. POA Chronic heart failure unknown LV EF per patient PLAN: Admit: Medical-surgical floor droplet isolation condition: Guarded Status: Full code IVF: Heplock Diet heart healthy, aspiration precautions Consultants workplace rehabilitation officer's Antibiotics: Tamiflu 75 mg p.o. daily doxycycline IV cefepime IV Atrovent, pulmicort, mucomyst and CPT. Aggressive pulmonary toileting Continue with home CPAP bedtime continue oxygen supplement to keep O2 sats above 92%. 6 minute walk close to discharge. Encouraged patient to use Impella while awake out of bed to chair as tolerated. Labs cbc, cmp, mag Replace electrolytes as needed as per protocol to keep potassium above 4.0 magnesium 2.0. Patient continues with Prograf1 mg p.o. daily Continue with Eliquis5 mg b.i.d.. Metoprolol succinate 12.5 at bedtime. PRN: MEDICATIONS Tylenol 650 mg po every 4 hrs for fever Zofran 4 mg IV every 6 hrs for n/v Supportive measures: DVT ppx, GI ppx all questions answered Supervising MD: Dr. Tejinder Warren c/d This document was generated in part using voice recognition software, occasional wrong word or sound alike substitutions may have occurred due to the inherent limitations of voice recognition software. Read the chart carefully and recognize using context, where the substitutions have occurred. Although every effort was made to edit the content, languages and literature instructor and typing errors may occur ATTESTATION BY PHYSICIAN I have seen and examined the patient. I reviewed the documentation, medical decision making, and treatment plan as noted by the mid-level provider above. I agree with the findings and plan of care. Tejinder Warren MD, ELIZABETH NP Sep 15, 2024 09:51 TEJINDER WARREN MD Sep 15, 2024 16:49
[2024-09-15 10:22] LABS: BASOPHILS # (AUTO) 0.01 K/uL (0.00-0.20); BASOPHILS % (AUTO) 0.3 % (0.0-5.0); EOSINOPHILS # (AUTO) 0.06 K/uL (0.00-0.70); EOSINOPHILS % (AUTO) 1.6 % (0.0-8.0); HEMATOCRIT 25.3 % (36-48); IMMATURE GRANULOCYTE ABSOLUTE 0.03 K/uL (0-1); LYMPHOCYTES # (AUTO) 0.2 K/uL (1.0-4.8); LYMPHOCYTES % (AUTO) 4.2 % (21.0-51.0); MEAN CORPUSCULAR HEMOGLOBIN 32.9 pg (27.0-33.0); MEAN CORPUSCULAR VOLUME 102.8 fL (79-99); MONOCYTES # (AUTO) 0.2 K/uL (0.1-1.0); MONOCYTES % (AUTO) 5.7 % (3.0-13.0); NEUTROPHILS # (AUTO) 3.4 K/uL (1.8-7.7); NEUTROPHILS % (AUTO) 87.4 % (40.0-77.0); PLATELET COUNT (AUTO) 75 K/uL (130-400); RED BLOOD CELL COUNT(AUTO) 2.46 MIL/uL (4.00-5.50); RED CELL DISTRIBUTION WIDTH 18.8 % (11.0-15.5); WHITE BLOOD COUNT (AUTO) 3.9 K/uL (4.8-10.8)
[2024-09-15 10:37] LABS: ALBUMIN 3.1 g/dL (3.5-5.0); BILIRUBIN,TOTAL 0.7 mg/dL (0.2-1.0); CREATININE 1.7 mg/dL (0.5-1.0); MAGNESIUM 1.8 mg/dL (1.80-2.40); POTASSIUM 3.1 mmol/L (3.5-5.1); TOTAL PROTEIN, SERUM 6.3 g/dL (6.0-8.3)
[2024-09-15] MEDS: ceFEPime HCL 1 GM VIAL IVPB SCH (11:53)
[2024-09-15 13:02] LABS: BILIRUBIN,DIRECT 0.3 mg/dL (0.0-0.3)
[2024-09-15] MEDS: PoTASSium chloRIDE 10MEQ SR 10 MEQ/TAB TAB.SR.24H PO PRN (13:09)
--- NOTE | 2024-09-15 16:09 | CONS ---
Cardiac Consult Note CONSULT NOTE DATE OF SERVICE: Sep 12, 2024 at 06:57 REFERRING PROVIDER: ANDREW HANDY MD REASON FOR CONSULT: Paroxysmal atrial fibrillation HPI: 69-year-old female who came to the emergency room with symptoms of shortness of breath and was noted to have symptoms of feelings of fatigue and weakness as well as fevers and chills that started 3 days prior to admission. When patient arrived in the emergency room she had a temperature of a 101.4. Patient also had rigors noted. Patient was admitted to the hospital and was noted to have influenza type a infection and was getting treatment. Secondary t o patient's cardiac history she was placed on telemetry although an initial EKG has not been found. While on telemetry patient was noted to have sinus rhythm with frequent APCs and eventually had an episode this morning of AFib with rapid ventricular response. Cardiology was called. Upon my arrival to see patient she had converted back to a sinus rhythm. Reviewing her medication she was on scheduled albuterol Atrovent nebulizers which could have exacerbated the issue however patient does take beta breezy at home to include metoprolol succinate at 25 mg half a tab daily and I was told by nursing that that medication was continued. Patient's other important clinical history is that she does have a history of transcutaneous aortic valve replacement in addition to liver transplant. Patient is on appropriate antirejection medications. Patient is on anticoagulation as well to include Eliquis at 5 mg twice daily. Patient has not seen in our clinic and she may have a dog food shredder operator here in town although that h as not been determined. ROS: See HPI PMHX: Liver transplant TAVR GERD PSHX: TAVR Liver transplant Cholecystectomy FH: Noncontributory SOCIAL: [] Non smoker nondrinker PHYSICAL EXAMINATION: Patient was evaluated remotely secondary to underlying influenza type a and conversion back to sinus rhythm ASSESSMENT: Paroxysmal atrial fibrillation TAVR History of liver transplant PLAN: Have recommended that patient no longer has scheduled albuterol Atrovent nebs. Albuterol should be used as needed for wheezing only. Would get 2D echocardi ography considering the patient's prior TAVR as well as reassessment of left ventricular size and function in addition to assessment of left atrial size considering new onset of AFib. We will also try and determine the patient's regular dog food shredder operator. Continue with low-dose beta blockade. We will follow from afar once we get results of 2D echocardiogram. Vital Signs 09/14/24 09/14/24 09/14/24 09/14/24 18:23 18:26 19:00 19:30 Temp 98.4 Pulse 77 77 93 Resp 19 18 20 B/P (MAP) 112/63 Pulse Ox 93 99 O2 Delivery N/Cannula Low lpm Nasal Cannula Nasal Cannula* O2 Flow Rate 2.0 3.0 3 FiO2 28 28 32 09/14/24 09/14/24 09/14/24 09/15/24 23:03 23:03 23:52 00:00 Temp 98.4 Pulse 78 78 101 Resp 18 28 B/P (MAP) 123/55 Pulse Ox 90 O2 Delivery N/Cannula Low lpm Nasal Cannula CPAP O2 Flow Rate 2.0 4.0 FiO2 36 09/15/24 09/15/24 09/15/24 09/15/24 05:05 07:09 07:09 08:00 Temp 98.4 98.1 Pulse 84 72 72 83 Resp 26 19 18 18 B/P (MAP) 96/53 95/60 Pulse Ox 97 94 O2 Delivery CPAP N/Cannula Low lpm Nasal Cannula O2 Flow Rate 2.0 2.0 FiO2 28 09/15/24 09/15/24 09/15/24 08:39 11:37 12:00 Temp 98.1 Pulse 113 97 Resp 18 18 B/P (MAP) 92/58 Pulse Ox 94 95 O2 Delivery Nasal Cannula* Nasal Cannula O2 Flow Rate 2 2.0 FiO2 28 Laboratory Tests Test 09/14/24 21:25 09/15/24 10:06 Troponin I High Sensitivity 26 ng/L (4-50) B-Type Natriuretic Peptide 96 pg/mL (0-100) White Blood Count 3.9 K/uL (4.8-10.8) Red Blood Count 2.46 MIL/uL (4.00-5.50) Hemoglobin 8.1 g/dL (12.0-16.0) Hematocrit 25.3 % (36-48) Mean Corpuscular Volume 102.8 fL (79-99) Mean Corpuscular Hemoglobin 32.9 pg (27.0-33.0) Mean Corpuscular Hemoglobin Concent 32.0 g/dL (32.0-36.0) Red Cell Distribution Width 18.8 % (11.0-15.5) Platelet Count 75 K/uL (130-400) Mean Platelet Volume 10.6 fL (7.5-10.5) Immature Granulocyte % (Auto) 0.8 % (0-1) Neutrophils (%) (Auto) 87.4 % (40.0-77.0) Lymphocytes (%) (Auto) 4.2 % (21.0-51.0) Monocytes (%) (Auto) 5.7 % (3.0-13.0) Eosinophils (%) (Auto) 1.6 % (0.0-8.0) Basophils (%) (Auto) 0.3 % (0.0-5.0) Neutrophils # (Auto) 3.4 K/uL (1.8-7.7) Lymphocytes # (Auto) 0.2 K/uL (1.0-4.8) Monocytes # (Auto) 0.2 K/uL (0.1-1.0) Eosinophils # (Auto) 0.06 K/uL (0.00-0.70) Basophils # (Auto) 0.01 K/uL (0.00-0.20) Absolute Immature Granulocyte (auto 0.03 K/uL (0-1) Nucleated Red Blood Cells 0.0 % (0.0-0.19) Sodium Level 136 mmol/L (136-145) Potassium Level 3.1 mmol/L (3.5-5.1) Chloride Level 106 mmol/L (101-111) Carbon Dioxide Level 21 mmol/L (21-32) Blood Urea Nitrogen 30 mg/dL (7-18) Creatinine 1.7 mg/dL (0.5-1.0) Glomerular Filtration Rate Calc 32 mL/min (>90) Random Glucose 101 mg/dL (70-105) Total Calcium 7.8 mg/dL (8.5-10.1) Magnesium Level 1.80 mg/dL (1.80-2.40) Total Bilirubin 0.7 mg/dL (0.2-1.0) Direct Bilirubin 0.3 mg/dL (0.0-0.3) Aspartate Amino Transf (AST/SGOT) 19 U/L (10-37) Alanine Aminotransferase (ALT/SGPT) 9 U/L (12-78) Alkaline Phosphatase 75 U/L (50-136) Total Protein 6.3 g/dL (6.0-8.3) Albumin 3.1 g/dL (3.5-5.0) Current Medications Medications Dose Ordered Sig/Sandy Route PRN Reason Start Time Stop Time Status Last Admin Acetaminophen 500 mg ONCE ONCE PO 09/12/24 07:30 09/12/24 07:31 DC 09/12/24 07:28 Acetaminophen 500 mg STK-MED ONCE .ROUTE 09/12/24 07:25 09/12/24 07:25 DC Piperacillin Sod/ Tazobactam Sod 3.375 gm ONCE ONCE IV 09/12/24 08:30 09/12/24 08:31 DC 09/12/24 08:28 Ondansetron HCl 4 mg ONCE ONCE IVP 09/12/24 08:30 09/12/24 08:31 DC 09/12/24 08:22 Ondansetron HCl 4 mg STK-MED ONCE .ROUTE 09/12/24 08:19 09/12/24 08:19 DC Sodium Chloride 1,000 ml @ 0 mls/hr ONCE ONCE IV 09/12/24 08:30 09/12/24 08:31 DC 09/12/24 08:32 Oseltamivir Phosphate 75 mg ONCE ONCE PO 09/12/24 10:00 09/12/24 10:01 DC 09/12/24 09:45 Oseltamivir Phosphate 75 mg BID PO 09/12/24 21:00 09/12/24 12:02 DC Famotidine 20 mg DAILY PO 09/12/24 21:00 10/12/24 20:59 09/15/24 08:39 Sodium Chloride 1,000 ml @ 75 mls/hr [id number] IV 09/12/24 10:00 09/13/24 00:28 DC 09/12/24 23:22 Oseltamivir Phosphate 75 mg Q24H PO 09/12/24 13:00 09/17/24 12:59 09/15/24 13:09 Albuterol 1 UDVIAL [id number] IH 09/12/24 12:00 09/12/24 21:30 DC 09/12/24 19:00 Guaifenesin/ Dextromethorphan 10 ml Q4H PO 09/12/24 12:00 09/14/24 20:31 DC 09/14/24 13:07 Doxycycline Hyclate 250 ml @ 125 mls/hr Q12H IV 09/12/24 12:30 09/22/24 12:29 09/15/24 13:09 Azithromycin 250 ml @ 250 mls/hr Q24H IVPB 09/12/24 12:30 09/13/24 15:26 DC 09/13/24 12:27 Allopurinol 100 mg DAILY PO 09/13/24 09:00 10/13/24 08:59 09/15/24 08:40 Apixaban 5 mg BID PO 09/12/24 21:00 10/12/24 20:59 09/15/24 08:40 Metoprolol Succinate 25 mg DAILY PO 09/13/24 09:00 09/12/24 19:50 DC Spironolactone 25 mg DAILY PO 09/13/24 09:00 10/13/24 08:59 09/15/24 08:40 Tacrolimus 1 mg DAILY PO 09/13/24 09:00 10/13/24 08:59 09/15/24 08:39 Torsemide 20 mg BID PO 09/12/24 21:00 09/13/24 15:26 DC 09/13/24 08:42 Home Med Copper Gluconate (Copper... DAILY PO 09/13/24 09:00 10/13/24 08:59 09/15/24 08:43 Folic Acid 1 mg DAILY PO 09/13/24 09:00 10/13/24 08:59 09/15/24 08:39 Home Med Macitentan (Opsumit) 1 TAB DAILY PO 09/13/24 09:00 10/13/24 08:59 09/15/24 08:42 Sertraline HCl 100 mg DAILY PO 09/13/24 09:00 10/13/24 08:59 09/15/24 08:40 Home Med Tadalafil 20 MG DAILY PO 09/13/24 09:00 10/13/24 08:59 09/15/24 08:43 Home Med Tenofovir Disoproxil Fumar... DAILY PO 09/13/24 09:00 10/13/24 08:59 09/15/24 08:43 Metoprolol Succinate 12.5 mg HS PO 09/12/24 20:00 10/13/24 08:59 09/14/24 20:42 Metoprolol Tartrate 25 mg STK-MED ONCE .ROUTE 09/12/24 19:36 09/12/24 19:36 DC Metoprolol Succinate 12.5 mg HS PO 09/12/24 21:00 09/12/24 19:56 DC Metoprolol Succinate 25 mg STK-MED ONCE PO 09/12/24 19:49 09/12/24 19:49 DC Ipratropium [place] 0.5 MG R0TOILE IH 09/13/24 00:00 10/13/24 00:00 09/15/24 11:36 Loperamide HCl 4 mg ONCE ONCE PO 09/13/24 00:30 09/13/24 00:34 DC Loperamide HCl 2 mg STK-MED ONCE PO 09/13/24 00:29 09/13/24 00:29 DC 09/13/24 00:31 Budesonide 0.25 mg BIDRESP IH 09/13/24 18:00 10/13/24 17:59 09/15/24 07:06 Pharmacy Profile Note 1 each ONCE MISC 09/13/24 11:00 09/13/24 11:01 DC Albuterol Sulfate 2.5MG = 3ML [id number] IH 09/13/24 12:00 09/15/24 12:55 DC 09/15/24 11:37 Tacrolimus 0.5 mg HS PO 09/13/24 22:00 10/13/24 21:59 09/14/24 20:41 Fluconazole/ Sodium Chloride 200 mg Q24H IV 09/14/24 16:00 10/14/24 15:59 09/14/24 16:12 Vancomycin HCl 1 each AD IV 09/14/24 16:00 09/15/24 12:40 DC Nystatin 5 ml QID PO 09/14/24 17:00 10/14/24 16:59 09/15/24 13:09 Vancomycin HCl 250 ml @ 125 mls/hr ONCE ONCE IV 09/14/24 16:30 09/14/24 18:29 DC 09/14/24 16:13 Vancomycin HCl 750 mg Q24H IVPB 09/15/24 16:30 09/15/24 12:40 DC Torsemide 20 mg ONCE ONCE PO 09/14/24 20:30 09/14/24 20:32 DC 09/14/24 20:42 Cefepime HCl 1 gm Q24H IVPB 09/15/24 11:30 09/25/24 11:29 09/15/24 11:53 Reported Medications Tacrolimus (Tacrolimus Xl) 0.5 Mg Cap.er.24h, 0.5 MG PO HS, CAPSULE. 09/12/24 Folic Acid (Folic Acid) 0.8 Mg Capsule, 1 CAP PO DAILY for 30 Days, #30 CAP 0 Refills 09/12/24 Prednisone (Prednisone) 5 Mg Tablet, 1 TAB PO DAILY for 30 Days, #30 TAB 0 Refills 09/12/24 Sertraline HCl (Sertraline HCl) 100 Mg Tablet, 1 TAB PO HS for 30 Days, #30 TAB 0 Refills 09/12/24 Allopurinol (Allopurinol) 100 Mg Tablet, 1 TAB PO DAILY for 30 Days, #30 TAB 0 Refills 09/12/24 Apixaban (Eliquis) 5 Mg Tablet, 1 TAB PO BID for 30 Days, #60 TAB 0 Refills 09/12/24 Tadalafil (Tadalafil) 20 Mg Tablet, 20 MG PO DAILY, TAB 09/12/24 Macitentan (Opsumit) 10 Mg Tablet, 1 TAB PO DAILY for 30 Days, #30 TAB 0 Refills 09/12/24 Dicyclomine HCl (Dicyclomine HCl) 10 Mg Capsule, 20 MG PO Q4HPRN PRN for DIARRHEA, CAP 09/12/24 Dicyclomine HCl (Dicyclomine HCl) 10 Mg Capsule, 1 CAP PO Q6HPRN PRN for irritable bowel symptoms for 25 Days, #100 CAP 0 Refills 09/12/24 Loperamide HCl (Loperamide) 2 Mg Capsule, 2 CAP PO Q6H for loose stool for 5 Days, #40 CAP 0 Refills 09/12/24 Pantoprazole Sodium (Pantoprazole Sodium) 40 Mg Tablet., 1 TAB PO DAILY for 30 Days, #30 TAB 0 Refills 09/12/24 Metoprolol Succinate (Metoprolol Succinate) 25 Mg Tab.er.24h, 0.5 TAB PO HS for 30 Days, #30 TAB 0 Refills 09/12/24 Spironolactone (Spironolactone) 25 Mg Tablet, 1 TAB PO DAILY for 30 Days, #30 TAB 0 Refills 09/12/24 Tenofovir Disoproxil Fumarate (Viread) 300 Mg Tablet, 1 TAB PO DAILY for 30 Days, #30 TAB 0 Refills 09/12/24 Ondansetron (Ondansetron Odt) 4 Mg Tab.rapdis, 1 TAB PO Q6HPRN PRN for nausea/vomiting for 4 Days, #16 TAB 0 Refills 09/12/24 Torsemide (Torsemide) 20 Mg Tablet, 1 TAB PO BID for 30 Days, #30 TAB 0 Refills 09/12/24 Copper Gluconate (Copper) 2 Mg Capsule, 2 MG PO DAILY, CAP 09/12/24 Empagliflozin (Jardiance) 10 Mg Tablet, 1 TAB PO ACBKFST for 30 Days, #30 TAB 0 Refills 09/12/24 Tacrolimus (Tacrolimus) 1 Mg Capsule, 1 CAP PO DAILY for 30 Days, #60 CAP 0 Refills 09/12/24 ANDREW HANDY MD Sep 15, 2024 16:09
[2024-09-15] MEDS ORDERED: VANCOMYCIN 750MG VIAL IVPB SCH (16:30)
--- NOTE | 2024-09-15 16:49 | PN ---
[facility] PROGRESS NOTE Date Patient Seen: Sep 15, 2024 Time of Visit: 16:47 Supervising Physician: DARINEL BENDER PROBLEM LIST: Acute on chronic hypoxemic respiratory failure, home O2 dependent Influenza A infection w superimposed Bacterial PNA Chronic congestive heart failure, unknown LVEF for patient Pancytopenia secondary to immunocompromised state from liver transplant History of liver transplant on tacrolimus Pulmonary hypertension History of aortic stenosis status post remote TAVR with bovine valve Paroxysmal atrial fibrillation on Eliquis INTERVAL HISTORY: Patient was seen and examined today by me at bedside, the patient was weak, deconditioned, continues with dyspnea and cough that has productive in nature. Last documented fever was on 09/12/2024. At 100.9. She continues on Tamiflu, Diflucan, vanco, cefepime and doxy. Infectious Disease specialist has been consulted given the patient's underlying immunosuppression. Chest x-ray continues to reveal right-sided consolidation. She does complain of oral thrush.Started on oral nystatin. Patient of Note continues weak with very gradual improvements. Will benefit from SNF for continued iv abx and respiratory rehab. Case mgt order will be placed. patient inagreement REVIEW OF SYSTEMS: 12 point ROS reviewed with patient. Pertinent positives mentioned above. Otherwise negative. PHYSICAL EXAM: GENERAL: alert, weak, awake oriented x 3 HEENT: EOMI, Sclera non icteric, moist mucosa NECK: Supple, no JVD, trachea midline LUNGS: tight air entry, dyspneic, tachypneic HEART: Regular rate and rhythm. Normal S1 and S2, without murmurs ABD: Abdomen soft, nontender. Bowel sounds present EXT: No clubbing cyanosis or edema NEURO: Alert and oriented to person, follows commands Vital Signs (last 8hr) Date Time Temp Pulse Resp B/P (MAP) Pulse Ox O2 Delivery O2 Flow Rate FiO2 09/15/24 12:00 98.1 97 18 92/58 95 Nasal Cannula 2.0 09/15/24 11:37 113 18 LABS: Hematology Labs: Test 09/15/24 10:06 09/14/24 08:40 Range/Units White Blood Count 3.9 L 4.8-10.8 K/uL Red Blood Count 2.46 L 4.00-5.50 MIL/uL Hemoglobin 8.1 L 12.0-16.0 g/dL Hematocrit 25.3 L 36-48 % Mean Corpuscular Volume 102.8 H 79-99 fL Mean Corpuscular Hemoglobin 32.9 27.0-33.0 pg Mean Corpuscular Hemoglobin Concent 32.0 32.0-36.0 g/dL Red Cell Distribution Width 18.8 H 11.0-15.5 % Platelet Count 75 L 130-400 K/uL Mean Platelet Volume 10.6 H 7.5-10.5 fL Immature Granulocyte % (Auto) 0.8 0-1 % Neutrophils (%) (Auto) 87.4 H 40.0-77.0 % Lymphocytes (%) (Auto) 4.2 L 21.0-51.0 % Monocytes (%) (Auto) 5.7 3.0-13.0 % Eosinophils (%) (Auto) 1.6 0.0-8.0 % Basophils (%) (Auto) 0.3 0.0-5.0 % Neutrophils # (Auto) 3.4 1.8-7.7 K/uL Lymphocytes # (Auto) 0.2 L 1.0-4.8 K/uL Monocytes # (Auto) 0.2 0.1-1.0 K/uL Eosinophils # (Auto) 0.06 0.00-0.70 K/uL Basophils # (Auto) 0.01 0.00-0.20 K/uL Absolute Immature Granulocyte (auto 0.03 0-1 K/uL Nucleated Red Blood Cells 0.0 0.0-0.19 % Segmented Neutrophils % 84 H 40-70 % Band Neutrophils % 5 H 0-2 % Lymphocytes % (Manual) 6 L 22-44 % Monocytes % (Manual) 4 2-9 % Eosinophils % (Manual) 1 1-6 % Differential Comment MANUAL DIFFERENTIAL White Cell Morphology Comment Platelet Morphology Comment DECREASED Red Blood Cell Morphology See comments Reticulocyte Count (auto) 2.61468 H 0.42-2.23 % Immature Reticulocyte Fraction 19.90 H 0.18-0.48 % Chemistry Labs: Test 09/15/24 10:06 09/14/24 21:25 09/14/24 08:40 Range/Units Sodium Level 136 136-145 mmol/L Potassium Level 3.1 L 3.5-5.1 mmol/L Chloride Level 106 101-111 mmol/L Carbon Dioxide Level 21 21-32 mmol/L Blood Urea Nitrogen 30 H 7-18 mg/dL Creatinine 1.7 H 0.5-1.0 mg/dL Glomerular Filtration Rate Calc 32 >90 mL/min Random Glucose 101 70-105 mg/dL Total Calcium 7.8 L 8.5-10.1 mg/dL Magnesium Level 1.80 1.80-2.40 mg/dL Total Bilirubin 0.7 0.2-1.0 mg/dL Direct Bilirubin 0.3 0.0-0.3 mg/dL Aspartate Amino Transf (AST/SGOT) 19 10-37 U/L Alanine Aminotransferase (ALT/SGPT) 9 L 12-78 U/L Alkaline Phosphatase 75 50-136 U/L Total Protein 6.3 6.0-8.3 g/dL Albumin 3.1 L 3.5-5.0 g/dL Troponin I High Sensitivity 26 4-50 ng/L B-Type Natriuretic Peptide 96 0-100 pg/mL Iron Level 45 L 50-170 mcg/dL Total Iron Binding Capacity 148 L 250-450 mcg/dL Percent Iron Saturation 30.4 22-44 % Ferritin 1294 H 15-150 ng/mL Vitamin B12 Level 393 193-986 pg/mL Folic Acid (LAB) > 20.00 H 2-20 ng/mL DIAGNOSTICS / RADIOLOGY RESULTS: [ ] PLAN NEURO: Minimize central acting medications as possible. Maintain fall precautions, adequate lighting during the day PULMONARY: Supplemental 02 as needed. Maintain aspiration precautions at all times Atrovent, pulmicort, mucomyst and CPT. Aggressive pulmonary toileting No steroids at this time Head of Bed Elevated at all times CXR in AM Broadend abx therapy to incldue cefepime and doxy tacrolimus level CARDIOVASCULAR: Follow hemodynamics. Vital signs per facility protocol GI & NUTRITION: Continue with nutritional support. Continue stool softeners and laxatives as needed. KIDNEYS & ELECTROLYTES: Strict monitoring of intake, output and overall fluid balance. Avoid nephrotoxic medications to the extent possible. Medications to be dosed according to renal function. Monitor electrolytes and replace as needed ENDOCRINE: Maintain blood glucose between 100-180 at all times. Hypoglycemia protocol in place INFECTIOUS DISEASE: Trend temperature, WBC and procalcitonin level Follow cultures, deescalate antibiotics as soon as possible. Panculture if new onset fever ONCOLOGY/HEMATOLOGY/COAGULATION: Monitor for s/s of bleeding Monitor hemoglobin, coagulation studies as needed SKIN: Pressure ulcer prevention per facility protocol Specialty mattress ORTHO/REHAB: Continue PT/OT Prophylaxis: Continue GI and DVT prophylaxis Code Status: Full Resuscitation Disposition: TBD Other: Total patient care time exceeds 35 minutes excluding all procedures. ARTURO FREGOSO Sep 15, 2024 16:49
--- NOTE | 2024-09-15 18:58 | EKG ---
[facility] Test Date: 2024-09-15 Test Time: 18:47:21 Pat Name: AMOR CHARLTON Department: [facility] Room: 327 1 Gender: F Marbleizer: Joey : 1955 Requested By: ANDREW HANDY Order Number: [id number] Reading MD: Jamil Santos Measurements Intervals [place] Rate: 76 P: 20 CA: 186 QRS: 70 QRSD: 82 T: 158 QT: 388 QTc: 436 Interpretive Statements Sinus rhythm with premature supraventricular complexes Low voltage QRS T wave abnormality, consider lateral ischemia No previous ECG available for comparison Electronically Signed On 09-17-2024 23:17:28 CDT by Jamil Santos Please click the below link to view image of tracing.
--- NOTE | 2024-09-15 21:46 | CONS ---
INFECTIOUS DISEASE CONSULTATION DATE OF SERVICE: 09/15/2024. REQUESTING PHYSICIAN: GEORGINA Black REASON FOR CONSULTATION: Sepsis, pneumonia and antibiotic management. HISTORY OF PRESENT ILLNESS: A 69-year-old female with history of liver transplant, hypertension and obesity, presented to the hospital with fever, cough and shortness of breath. The patient's symptoms have been going on for about 3 days. T-max was 101.5. The patient is also complaining of flu-like symptoms. The patient's flu came back positive. CT of the chest was done, which shows bilateral infiltrate compatible with pneumonia. PAST MEDICAL HISTORY: * Hypertension. * Obesity. * Liver transplant. PAST SURGICAL HISTORY: * Liver transplant. * Atrial valve replacement. * Cholecystectomy. ALLERGIES: SULFA. CURRENT MEDICATIONS: Include: * ____ * Tamiflu. * Cefepime. * Doxycycline. * DuoNeb. * Tylenol. SOCIAL HISTORY: No alcohol, tobacco, or illicit drug use. FAMILY HISTORY: Noncontributory. REVIEW OF SYSTEMS: Greater than 10 systems were reviewed, negative except as documented above. PHYSICAL EXAMINATION: GENERAL: Elderly female, awake. VITAL SIGNS: Temperature 98.8, pulse 75, respiratory rate 19, BP 122/54. EYES: No icterus. Pupils equal and reactive. HENT: No oral thrush seen. Moist oral mucosa. NECK: Supple, no JVD or thyromegaly. LUNGS: Crackles, no rhonchi. CARDIOVASCULAR: S1, S2 regular, no murmur heard. ABDOMEN: Obese, soft, nontender. Bowel sounds present. CENTRAL NERVOUS SYSTEM: Awake, alert, oriented x 3. No focal deficits. SKIN: No rashes, no itchiness. LYMPHATIC: No peripheral lymphadenopathy. BACK: No deformity, no pressure ulcer. MUSCULOSKELETAL: No joint swelling, erythema, or tenderness. LABORATORY DATA: Sodium 136, potassium 3.1, BUN 30, creatinine 1.7. WBC 3.9, hemoglobin 8.1, platelets 175,000. Stress antigen positive for type A. Blood culture, no growth for 3 days. RADIOLOGY: CT chest showed bilateral infiltrates. ASSESSMENT: A 69-year-old female admitted with fever and cough. CURRENT PROBLEMS: Include: * Sepsis. * Viral influenza infection. * Multifocal pneumonia. * History of liver transplant. * Underlying immunosuppression. * Acute renal failure. * Obesity. PLAN: * Discontinue vancomycin. * Continue cefepime. * Continue Tamiflu to complete 5 days. * Continue doxycycline. * Continue nutritional support. * Monitor electrolytes. * Continue antirejection for renal transplant. Thank you for allowing me to participate in the care of this patient. TID: [id number] RECEIPT: [id number]
[2024-09-16] VITALS (13 sets, daily range): BP systolic 103–126; BP diastolic 54–90; PULSE 54–98; RESP 18–22; TEMP 97.3–98.7; O2SAT 95–97
[2024-09-16] MEDS: MAGNESIUM 2GM PREMIX 50ML 50 ML IV PRN (03:50)
[2024-09-16 06:11] LABS: HEMATOCRIT 23.1 % (36-48); MEAN CORPUSCULAR HEMOGLOBIN 33.5 pg (27.0-33.0); MEAN CORPUSCULAR HGB CONC 32.5 g/dL (32.0-36.0); MEAN CORPUSCULAR VOLUME 103.1 fL (79-99); RED BLOOD CELL COUNT(AUTO) 2.24 MIL/uL (4.00-5.50); RED CELL DISTRIBUTION WIDTH 18.9 % (11.0-15.5); WHITE BLOOD COUNT (AUTO) 3.1 K/uL (4.8-10.8)
[2024-09-16 06:25] LABS: CREATININE 1.6 mg/dL (0.5-1.0); MAGNESIUM 2.6 mg/dL (1.80-2.40); POTASSIUM 4.2 mmol/L (3.5-5.1)
--- NOTE | 2024-09-16 07:27 | EKG ---
[facility] Test Date: 2024-09-15 Test Time: 18:49:48 Pat Name: AMOR CHARLTON Department: [facility] Room: 327 1 Gender: F Office Mover: Joey : 1955 Requested By: LAITH SOLANO Order Number: [id number] Reading MD: Jamil Santos Measurements Intervals [place] Rate: 77 P: 0 [place]: 0 QRS: 68 QRSD: 76 T: 87 QT: 518 QTc: 586 Interpretive Statements Sinus rhythm Low voltage QRS ST & T wave abnormality, consider lateral ischemia Compared to ECG 09/15/2024 18:47:21 ST (T wave) deviation now present Sinus rhythm no longer present Atrial premature complex(es) no longer present T-wave abnormality no longer present Possible ischemia still present Electronically Signed On 09-17-2024 23:17:47 CDT by Jamil Santos Please click the below link to view image of tracing.
--- NOTE | 2024-09-16 09:36 | PN ---
[facility] PROGRESS NOTE Date of Service: Sep 16, 2024 Time of Service: 09:30 SUBJECTIVE: [ ] This is a 51-year-old female that presents in ER with generalized buttock witnessed in fever and chills. Patient was found to have influenza a. She continues the need for oxygen we will have respiratory to titrate as tolerated. She uses CPAP overnight. Device from home. We will get Physical therapy. Continues empiric antibiotics 09/14/2024 patient is seen and examined patient continues on nasal cannula at2 L. Patient reports she does not have home oxygen. Patient continues with dyspnea with minimal exertion. Most likely we will need a 6 minute walk close to discharge. Encouraged patient to continue to use IS while awake. Denied chest pain. 09/15/24 received patient is sitting in chair nasal cannula 2 L. Dyspneic with minimal exertion. Patient we will get a Impella to be used every hour while awake. Patient we will need a 6 minute walk close to discharge she does use CPAP at home. Denied chest pain. 09/16/24 patient continues with dyspnea and cough. Requiring oxygen supplemental2 L. patient is fully awake alert oriented x3. pad assembler's is following and Infectious Disease was consulted yesterday given to immunosuppressant stay. Patient agreed for placement for continuing of IV antibiotics and respiratory rehab. Patient has a history AFib patient went into AFib RVR tire finisher's was consulted. Patient converted back patient was started on metoprolol [id number] mg half a tab daily. REVIEW OF SYSTEMS A12 point ROS was obtained all relevant positive documented otherwise ROS negative PHYSICAL EXAM GENERAL APPEARANCE: The patient is awake, alert, on nasal cannula2 L. Appears acutely ill. NEUROLOGICAL: Cranial nerves II-XII grossly intact. Motor is 5/5 in bilateral upper and lower extremities proximal to distal. No sensory deficits. HEENT: Face is symmetric. Pupils are equal and reactive. Extraocular movements are intact. NECK: Supple. No JVD. No thyromegaly. No submental, submandibular, pre- /postauricular, occipital or supraclavicular lymphadenopathy. CHEST: Normal chest expansion. No Telemetry. LUNGS: Absence of any rales, ++ wheezing. CARDIOVASCULAR: Regular. S1 and S2 normal. No appreciable rubs, murmurs or g allops. ABDOMEN: Soft, nontender, and nondistended. There is no rebound, voluntary gua rding, or rigidity. : Deferred. No Hodgson. EXTREMITIES: Non-edematous and not cyanotic. No clubbing. Good capillary refill. SKIN: No skin breakdown. Vital Signs (last 8hr) Date Time Temp Pulse Resp B/P (MAP) Pulse Ox O2 Delivery O2 Flow Rate FiO2 09/16/24 07:50 86 18 N/Cannula Low lpm 3.0 32 09/16/24 07:39 83 18 09/16/24 04:38 97.3 79 20 103/64 98 CPAP LABS: Laboratory: Test 09/16/24 06:04 09/15/24 10:06 09/14/24 21:25 Range/Units White Blood Count 3.1 L 4.8-10.8 K/uL Red Blood Count 2.24 L 4.00-5.50 MIL/uL Hemoglobin 7.5 L 12.0-16.0 g/dL Hematocrit 23.1 L 36-48 % Mean Corpuscular Volume 103.1 H 79-99 fL Mean Corpuscular Hemoglobin 33.5 H 27.0-33.0 pg Mean Corpuscular Hemoglobin Concent 32.5 32.0-36.0 g/dL Red Cell Distribution Width 18.9 H 11.0-15.5 % Platelet Count 64 L 130-400 K/uL Mean Platelet Volume 9.8 7.5-10.5 fL Nucleated Red Blood Cells 0.0 0.0-0.19 % Sodium Level 136 136-145 mmol/L Potassium Level 4.2 3.5-5.1 mmol/L Chloride Level 109 101-111 mmol/L Carbon Dioxide Level 20 L 21-32 mmol/L Blood Urea Nitrogen 29 H 7-18 mg/dL Creatinine 1.6 H 0.5-1.0 mg/dL Glomerular Filtration Rate Calc 34 >90 mL/min Random Glucose 90 70-105 mg/dL Total Calcium 8.0 L 8.5-10.1 mg/dL Magnesium Level 2.60 H 1.80-2.40 mg/dL Immature Granulocyte % (Auto) 0.8 0-1 % Neutrophils (%) (Auto) 87.4 H 40.0-77.0 % Lymphocytes (%) (Auto) 4.2 L 21.0-51.0 % Monocytes (%) (Auto) 5.7 3.0-13.0 % Eosinophils (%) (Auto) 1.6 0.0-8.0 % Basophils (%) (Auto) 0.3 0.0-5.0 % Neutrophils # (Auto) 3.4 1.8-7.7 K/uL Lymphocytes # (Auto) 0.2 L 1.0-4.8 K/uL Monocytes # (Auto) 0.2 0.1-1.0 K/uL Eosinophils # (Auto) 0.06 0.00-0.70 K/uL Basophils # (Auto) 0.01 0.00-0.20 K/uL Absolute Immature Granulocyte (auto 0.03 0-1 K/uL Total Bilirubin 0.7 0.2-1.0 mg/dL Direct Bilirubin 0.3 0.0-0.3 mg/dL Aspartate Amino Transf (AST/SGOT) 19 10-37 U/L Alanine Aminotransferase (ALT/SGPT) 9 L 12-78 U/L Alkaline Phosphatase 75 50-136 U/L Total Protein 6.3 6.0-8.3 g/dL Albumin 3.1 L 3.5-5.0 g/dL Troponin I High Sensitivity 26 4-50 ng/L B-Type Natriuretic Peptide 96 0-100 pg/mL Current Medications Medications (Trade) Dose Ordered Sig/Sandy Route PRN Reason Start Time Stop Time Status Last Admin Dose Admin Acetaminophen (TYLenol 325MG TAB) 650 mg Q4H PRN PO TEMPERATURE GREATER THAN 101.5 09/12/24 10:00 09/12/24 12:37 DC Acetaminophen (TYLenol 325MG TAB) 650 mg Q4H PRN PO TEMPERATURE GREATER THAN 101.5 09/12/24 12:30 10/12/24 12:29 09/15/24 14:44 650 MG Acetaminophen (TYLenol 325MG TAB) 650 mg Q6H PRN PO MILD PAIN (1-3) 09/13/24 22:00 10/13/24 21:59 Albuterol (DUOneb) 1 UDVIAL [id number] 09/12/24 12:00 09/12/24 21:30 DC 09/12/24 19:00 1 UDVIAL Albuterol Sulfate (Proventil 0.083% 2.5mg/3ml) 2.5MG = 3ML [id number] IH 09/13/24 12:00 09/15/24 12:55 DC 09/15/24 11:37 2.5 MG Allopurinol (ZYLOprim 100MG) 100 mg DAILY PO 09/13/24 09:00 10/13/24 08:59 09/16/24 08:46 100 MG Apixaban (EliquIS) 5 mg BID PO 09/12/24 21:00 10/12/24 20:59 09/16/24 08:46 5 MG Azithromycin 250 ml @ 250 mls/hr Q24H IVPB 09/12/24 12:30 09/13/24 15:26 DC 09/13/24 12:27 250 MLS/HR Budesonide (Pulmicort 0.25mg/2ml) 0.25 mg BIDRESP 09/13/24 18:00 10/13/24 17:59 09/16/24 07:39 0.25 MG Cefepime HCl (MAXipime 1 GM vial) 1 gm Q24H IVPB 09/15/24 11:30 09/25/24 11:29 09/15/24 11:53 1 GM Doxycycline Hyclate 250 ml @ 125 mls/hr Q12H IV 09/12/24 12:30 09/22/24 12:29 09/16/24 00:40 125 MLS/HR Famotidine (Pepcid 20mg Tab) 20 mg DAILY PO 09/12/24 21:00 10/12/24 20:59 09/16/24 08:46 20 MG Fluconazole/ Sodium Chloride (DiFLUCan 200 MG/ NS 100 ML) 200 mg Q24H IV 09/14/24 16:00 10/14/24 15:59 09/15/24 16:47 200 MG Folic Acid (FOLic ACID 1 MG TABLET) 1 mg DAILY PO 09/13/24 09:00 10/13/24 08:59 09/16/24 08:46 1 MG Guaifenesin/ Dextromethorphan (RobiTUSSin DM 200/20MG 10ML) 10 ml Q4H PO 09/12/24 12:00 09/14/24 20:31 DC 09/14/24 13:07 10 ML Guaifenesin/ Dextromethorphan (RobiTUSSin DM 200/20MG 10ML) 10 ml Q4H PRN PO COUGH 09/14/24 20:30 10/12/24 11:59 Home Med (Home Medication) Copper Gluconate (Copper... DAILY PO 09/13/24 09:00 10/13/24 08:59 09/16/24 08:47 1 EACH Home Med (Home Medication) Macitentan (Opsumit) 1 TAB DAILY PO 09/13/24 09:00 10/13/24 08:59 09/16/24 08:48 1 EACH Home Med (Home Medication) Tadalafil 20 MG DAILY PO 09/13/24 09:00 10/13/24 08:59 09/16/24 08:48 2 EACH Home Med (Home Medication) Tenofovir Disoproxil Fumar... DAILY PO 09/13/24 09:00 10/13/24 08:59 09/16/24 08:48 1 EACH Ipratropium [place] (AtrovENT UD) 0.5 MG [id number] IH 09/13/24 00:00 10/13/24 00:00 09/16/24 07:36 0.5 MG Loperamide HCl (Imodium) 2 mg Q6H PRN PO DIARRHEA 09/13/24 21:30 10/13/24 21:29 09/15/24 09:11 2 MG Magnesium Sulfate 50 ml @ 0 mls/hr PROTOCOL PRN IV low mag level 09/12/24 12:00 10/12/24 11:59 09/16/24 03:50 25 MLS/HR Metoprolol Succinate (TopROL XL) 12.5 mg HS PO 09/12/24 20:00 10/13/24 08:59 09/15/24 21:59 12.5 MG Metoprolol Succinate (TopROL XL) 12.5 mg HS PO 09/12/24 21:00 09/12/24 19:56 DC Metoprolol Succinate (TopROL XL) 25 mg DAILY PO 09/13/24 09:00 09/12/24 19:50 DC Nystatin (NYSTatin 410986 UNIT/ML 5ML UDCUP) 5 ml QID PO 09/14/24 17:00 10/14/24 16:59 09/16/24 08:46 5 ML Ondansetron HCl (zoFRAN 4MG INJ) 4 mg Q6H PRN IVP NAUSEA/VOMITING 09/12/24 10:00 10/12/24 09:59 09/14/24 17:20 4 MG Oseltamivir Phosphate (Tamiflu) 75 mg BID PO 09/12/24 21:00 09/12/24 12:02 DC Oseltamivir Phosphate (Tamiflu) 75 mg Q24H PO 09/12/24 13:00 09/17/24 12:59 09/15/24 13:09 75 MG Pharmacy Profile Note (Pharmacy Communication) 1 each ONCE MISC 09/13/24 11:00 09/13/24 11:01 DC Potassium Chloride 100 ml @ 50 mls/hr AD PRN IV POTASSIUM PROTOCOL 09/12/24 12:00 10/12/24 11:59 Potassium Chloride 100 ml @ 100 mls/hr AD PRN IV POTASSIUM PROTOCOL 09/13/24 00:00 09/12/24 23:59 DC Potassium Chloride 100 ml @ 100 mls/hr AD PRN IV POTASSIUM PROTOCOL 09/13/24 00:00 10/13/24 00:00 Potassium Chloride (K-Dur 10meq Sr Tab) 10 meq AD PRN PO POTASSIUM PROTOCOL 09/13/24 11:00 10/13/24 00:00 09/15/24 21:58 10 MEQ Potassium Chloride (K-Dur/Klor-Con 20meq) 10 meq AD PRN PO POTASSIUM PROTOCOL 09/13/24 00:00 09/13/24 10:31 DC Potassium Chloride (KCl 10% Elixir 20meq/15ml) 10 meq AD PRN PO POTASSIUM PROTOCOL 09/13/24 00:00 10/13/24 00:00 Sertraline HCl (ZOloft 50 mg tab) 100 mg DAILY PO 09/13/24 09:00 10/13/24 08:59 09/16/24 08:47 100 MG Sodium Chloride 1,000 ml @ 75 mls/hr [id number] IV 09/12/24 10:00 09/13/24 00:28 DC 09/12/24 23:22 75 MLS/HR Spironolactone (Aldactone 25mg) 25 mg DAILY PO 09/13/24 09:00 10/13/24 08:59 09/16/24 08:46 25 MG Tacrolimus (ProgRAF 0.5MG) 0.5 mg HS PO 09/13/24 22:00 10/13/24 21:59 09/15/24 21:58 0.5 MG Tacrolimus (ProgRAF 1MG) 1 mg DAILY PO 09/13/24 09:00 10/13/24 08:59 09/16/24 08:46 1 MG Torsemide (Demadex) 20 mg BID PO 09/12/24 21:00 09/13/24 15:26 DC 09/13/24 08:42 20 MG Vancomycin HCl (Vancomycin 750mg) 750 mg Q24H IVPB 09/15/24 16:30 09/15/24 12:40 DC Vancomycin HCl (Vancomycin Protocol) 1 each AD IV 09/14/24 16:00 09/15/24 12:40 DC DIAGNOSTICS / RADIOLOGY: [ ] ASSESSMENT: Acute respiratory failure with hypoxia POA Sepsis secondary to viral syndrome influenza a POA Positive influenza a infection POA Viral syndrome POA Immunosuppression state on Prograf POA Hypercoagulable state secondary AFib t on Eliquis POA Anemia on chronic renal failure POA Acute on chronic renal failure POA History liver transplant on immunosuppressive drugs prograf POA Moderate protein calorie malnutrition. POA Chronic heart failure unknown LV EF per patient Physical deconditioning given to dyspnea on exertion POA PLAN: Admit: Medical-surgical floor droplet isolation condition: Guarded Status: Full code IVF: Heplock Diet heart healthy, aspiration precautions Consultants pad assembler's infectious disease Antibiotics: Tamiflu 75 mg p.o. daily doxycycline IV cefepime IV Diflucan Atrovent, pulmicort, mucomyst and CPT. Aggressive pulmonary toileting Continue with home CPAP bedtime continue oxygen supplement to keep O2 sats above 92%. 6 minute walk close to discharge. Encouraged patient to use Impella while awake out of bed to chair as tolerated. Labs cbc, cmp, mag Replace electrolytes as needed as per protocol to keep potassium above 4.0 magnesium 2.0. Patient continues with Prograf1 mg p.o. daily Continue with Eliquis5 mg b.i.d.. Metoprolol succinate 12.5 at bedtime. PRN: MEDICATIONS Tylenol 650 mg po every 4 hrs for fever Zofran 4 mg IV every 6 hrs for n/v Supportive measures: DVT ppx, GI ppx all questions answered Case management for SNF Supervising MD: Dr. Ball c/d This document was generated in part using voice recognition software, occasional wrong word or sound alike substitutions may have occurred due to the inherent limitations of voice recognition software. Read the chart carefully and recognize using context, where the substitutions have occurred. Although every effort was made to edit the content, tone artist apprentice and typing errors may occur ATTESTATION BY PHYSICIAN I have seen and examined the patient. I reviewed the documentation, medical decision making, and treatment plan as noted by the mid-level provider above. I agree with the findings and plan of care. JOHNATHON BALL MD, ELIZABETH NP Sep 16, 2024 09:36
[2024-09-16] MEDS: acetaMINOPHEN 325 MG TAB PO PRN (12:13)
[2024-09-16 17:59] LABS: INR 1.26 (0.85-1.15); PROTHROMBIN TIME 13.1 SEC (9.6-11.6)
--- NOTE | 2024-09-16 22:49 | PN ---
INFECTIOUS DISEASE PROGRESS NOTE Date of Service: Sep 16, 2024 SUBJECTIVE: This is 69-year-old female patient who was seen and examined at bedside in room 327. Patient is awake, alert and oriented x3. Patient is afebrile this morning, temperature is 98.2. No reports of nausea or vomiting. We will continue on cefepime, fluconazole, doxycycline and Tamiflu. No dyspnea. Patient is currently on oxygen support via nasal cannula 2 liters/minute. Patient reported history of pulmonary hypertension and that her creel clerk is out of state. Patient has a portable heart monitor at bedside and requesting assistance with the device. We will have nursing obtain a Cardiology consult. No other issues reported by nursing. PHYSICAL EXAM EYES: Anicteric. Pupils equal and reactive. HENT: No oral thrush seen, moist Oral mucosa. NECK: Supple, no JVD or thyromegaly. LUNGS: Good air entry. No rales, no rhonchi. Coughing episodes. CARDIOVASCULAR: S1, S2 regular. No murmur heard. ABDOMEN: Soft, non tender, bowel sounds present, no organomegaly CENTRAL NERVOUS SYSTEM: Awake, alert, oriented x 3. SKIN: No rashes, no swelling. LYMPHATICS: No peripheral lymphadenopathy. MUSCULOSKELETAL: No joint swelling, erythema or tenderness. EXTREMITIES: No cyanosis or clubbing. BACK: No deformity, no pressure ulcer. GENITOURINARY: No dysuria or hematuria. Vital Sign (Last 12 Hours) 09/16/24 09/16/24 09/16/24 09/16/24 11:38 12:00 16:00 19:08 Temp 98.2 98.2 Pulse 70 98 79 54 Resp 18 21 19 18 B/P (MAP) 114/62 116/63 Pulse Ox 94 95 O2 Delivery Nasal Cannula Room Air O2 Flow Rate 4.0 09/16/24 20:00 Temp 98.8 Pulse 82 Resp 22 B/P (MAP) 115/54 Pulse Ox 99 O2 Delivery Nasal Cannula O2 Flow Rate 4.0 FiO2 32 Intake & Output (last 24hrs) 09/15/24 09/15/24 09/16/24 15:00 23:00 07:00 Intake Total 300.0 ml Balance 300.0 ml LABS: Laboratory: Test 09/16/24 17:38 09/16/24 06:04 09/15/24 10:06 Range/Units Prothrombin Time 13.1 H 9.6-11.6 SEC Prothromb Time International Ratio 1.26 H 0.85-1.15 Activated Partial Thromboplast Time 40.0 H 26.3-35.5 SEC White Blood Count 3.1 L 4.8-10.8 K/uL Red Blood Count 2.24 L 4.00-5.50 MIL/uL Hemoglobin 7.5 L 12.0-16.0 g/dL Hematocrit 23.1 L 36-48 % Mean Corpuscular Volume 103.1 H 79-99 fL Mean Corpuscular Hemoglobin 33.5 H 27.0-33.0 pg Mean Corpuscular Hemoglobin Concent 32.5 32.0-36.0 g/dL Red Cell Distribution Width 18.9 H 11.0-15.5 % Platelet Count 64 L 130-400 K/uL Mean Platelet Volume 9.8 7.5-10.5 fL Nucleated Red Blood Cells 0.0 0.0-0.19 % Sodium Level 136 136-145 mmol/L Potassium Level 4.2 3.5-5.1 mmol/L Chloride Level 109 101-111 mmol/L Carbon Dioxide Level 20 L 21-32 mmol/L Blood Urea Nitrogen 29 H 7-18 mg/dL Creatinine 1.6 H 0.5-1.0 mg/dL Glomerular Filtration Rate Calc 34 >90 mL/min Random Glucose 90 70-105 mg/dL Total Calcium 8.0 L 8.5-10.1 mg/dL Magnesium Level 2.60 H 1.80-2.40 mg/dL Immature Granulocyte % (Auto) 0.8 0-1 % Neutrophils (%) (Auto) 87.4 H 40.0-77.0 % Lymphocytes (%) (Auto) 4.2 L 21.0-51.0 % Monocytes (%) (Auto) 5.7 3.0-13.0 % Eosinophils (%) (Auto) 1.6 0.0-8.0 % Basophils (%) (Auto) 0.3 0.0-5.0 % Neutrophils # (Auto) 3.4 1.8-7.7 K/uL Lymphocytes # (Auto) 0.2 L 1.0-4.8 K/uL Monocytes # (Auto) 0.2 0.1-1.0 K/uL Eosinophils # (Auto) 0.06 0.00-0.70 K/uL Basophils # (Auto) 0.01 0.00-0.20 K/uL Absolute Immature Granulocyte (auto 0.03 0-1 K/uL Total Bilirubin 0.7 0.2-1.0 mg/dL Direct Bilirubin 0.3 0.0-0.3 mg/dL Aspartate Amino Transf (AST/SGOT) 19 10-37 U/L Alanine Aminotransferase (ALT/SGPT) 9 L 12-78 U/L Alkaline Phosphatase 75 50-136 U/L Total Protein 6.3 6.0-8.3 g/dL Albumin 3.1 L 3.5-5.0 g/dL ASSESSMENT: Multifocal pneumonia. Influenza Viral infection type A. Sepsis. History of liver transplant. Underlying immunosuppression. History of pulmonary hypertension. Acute renal failure. Anemia. PLAN: Place midline. Continue cefepime. Continue fluconazole. Continue doxycycline. Continue Tamiflu. Continue GI prophylaxis. Continue bronchodilators. Continue oxygen support. Obtain Cardiology consult. This case was reviewed and discussed with my supervising physician and the above assessment and plan was formulated and agreed upon. ATTESTATION BY PHYSICIAN I have seen and examined the patient. I reviewed the documentation, medical decision making, and treatment plan as noted by the mid-level provider above. I agree with the findings and plan of care. BRIDGER DREW MD, MIRTA L [facility] Sep 16, 2024 22:49
--- NOTE | 2024-09-16 22:56 | HMCSR ---
APPROVED REPORT EXAM: Two-dimensional and M-mode echocardiogram with Doppler and color Doppler. INDICATION ICD: Atrial fibrillation with rapid ventricular response, status post TAVR 2D Dimensions RVDd3.1 cmLVEF(%)76.8 (>50%)LVED Vol(simp.)58.3 mL IVSd1.4 (0.7-1.1cm)FS(%)45 %LVES Vol(simp.)18.4 mL LVDd4.4 (3.8-5.6cm)LA (2D)5.1 (1.6-4.0cm)LVEF(%, simp.)69 % PWd1.0 (0.7-1.1cm)Ao Root(2D)2.5 (2.0-3.7cm)LA ESV INDEX (BP)46.92 mL/m2 LVDs2.4 (2.5-4.0cm)LVOT diam1.6 (1.8-2.4cm) IVC diam2.2 cm Deformation Strain Apical 4-18.0 % Apical 2-17.0 % Apical 3-19.0 % Global Strain-18.0 % M-Mode Dimensions EPSS1.0 cm LA (MM)4.3 (1.6-4.0cm) Ao Root(MM)2.8 (2.0-3.7cm) Aortic Valve AoV Vmax3.4 m/Mary Peak GR47.1 mmHgLVOT Vmax1.7 m/s AoV VTI0.7 mAo Mean GR24.1 mmHgLVOT VTI0.40 m [place] (VMAX)1.1 cm2AVA (VTI) 1.1 cm2 Mitral Valve MV E Kflo800.9 cm/sDECEL Kfyf403 msMV Peak GR20 mmHg MV A Khea165.0 cm/sMV Mean GR8 mmHg E/A ratio1.9 TDI E/E' Ziqobr04.8E/E' Rgqbfly58.2 Medial E' Peak V5.00 cm/sLateral E' Peak V4.00 cm/s Pulmonary Valve PV Vmax1.1 m/s Tricuspid Valve TR Vmax4.0 m/sRAP (EST) 15 vfDeBVNM14.6 mmHg TR Peak GR74.6 mmHg Left Ventricle The left ventricle is normal size. GLS -18.0%. There is normal LV segmental wall motion. Moderate con centric left ventricular hypertrophy. LVEF is >65%. Grade II diastolic dysfunction Right Ventricle The right ventricle is normal size. The right ventricular systolic function is normal. Atria The left atrium size is severely dilated. The right atrium is borderline dilated. Aortic Valve Status post TAVR. Trivial paravavular/perivalvular leak noted. No aortic regurgitation is present. A ortic prosthetic pk gradient of 47mmHg and mean gradient ofg 25mmHg. Mitral Valve The mitral valve is mildly thickened and appear domming. There is mitral annular calcification. There is mild mitral valve regurgitation noted. There is moderate mitral valve stenosis with mean gradient of 8mmHg. Tricuspid Valve The tricuspid valve appears normal. There is moderate tricuspid valve regurgitation noted. Moderate P ulmonary hypertension, PAP 52 mmHg. Pulmonic Valve The pulmonary valve is normal in structure. There is mild pulmonic valvular regurgitation. Great Vessels The aortic root is normal in size. IVC is dilated and collapses <50% with inspiration. Pericardium There is no pericardial effusion. Other Information Quality : Adequate Conclusion LVEF is >65%. Grade II diastolic dysfunction The left atrium size is severely dilated. Status post TAVR. Trivial paravavular/perivalvular leak noted. There is mild mitral valve regurgitation noted. There is moderate mitral valve stenosis with mean gradient of 8mmHg. Aortic prosthetic pk gradient of 47mmHg and mean gradient ofg 25mmHg. There is moderate tricuspid valve regurgitation noted. Moderate Pulmonary hypertension, PAP 52 mmHg.
[2024-09-17] VITALS (14 sets, daily range): BP systolic 102–119; BP diastolic 60–85; PULSE 54–82; RESP 18–22; TEMP 97.7–98.5; O2SAT 91–98
--- NOTE | 2024-09-17 00:33 | PN ---
[facility] PROGRESS NOTE late entry Date Patient Seen: Sep 16, 2024 Supervising Physician: lydia vazquez md PROBLEM LIST: Acute on chronic hypoxemic respiratory failure, home O2 dependent Influenza A infection w superimposed Bacterial PNA Chronic congestive heart failure, unknown LVEF for patient Pancytopenia secondary to immunocompromised state from liver transplant History of liver transplant on tacrolimus Pulmonary hypertension History of aortic stenosis status post remote TAVR with bovine valve Paroxysmal atrial fibrillation on Eliquis INTERVAL HISTORY: Patient was seen and examined today by me at bedside, the patient was weak, deconditioned, continues with dyspnea and cough that has productive in nature but overall improving from clinical exam . However she endorses she does not feel much improvement . She continues on Tamiflu, Diflucan, vanco, cefepime and doxy. Infectious Disease specialist has been consulted given the patient's underlying immunosuppression. Chest x-ray continues to reveal right-sided consolidation. Patient of Note continues weak with very gradual improvements. Will benefit from SNF for continued iv abx and respiratory rehab. Case mgt order will be placed. patient in agreement - currently pending acceptance REVIEW OF SYSTEMS: 12 point ROS reviewed with patient. Pertinent positives mentioned above. Otherwise negative. PHYSICAL EXAM: GENERAL: alert, weak, awake oriented x 3 HEENT: EOMI, Sclera non icteric, moist mucosa NECK: Supple, no JVD, trachea midline LUNGS: tight air entry, dyspneic, tachypneic HEART: Regular rate and rhythm. Normal S1 and S2, without murmurs ABD: Abdomen soft, nontender. Bowel sounds present EXT: No clubbing cyanosis or edema NEURO: Alert and oriented to person, follows commands Vital Signs (last 8hr) Date Time Temp Pulse Resp B/P (MAP) Pulse Ox O2 Delivery O2 Flow Rate FiO2 09/17/24 00:02 82 18 09/16/24 20:00 98.8 82 22 115/54 99 Nasal Cannula 4.0 32 09/16/24 19:08 54 18 LABS: Hematology Labs: Test 09/16/24 06:04 09/15/24 10:06 Range/Units White Blood Count 3.1 L 4.8-10.8 K/uL Red Blood Count 2.24 L 4.00-5.50 MIL/uL Hemoglobin 7.5 L 12.0-16.0 g/dL Hematocrit 23.1 L 36-48 % Mean Corpuscular Volume 103.1 H 79-99 fL Mean Corpuscular Hemoglobin 33.5 H 27.0-33.0 pg Mean Corpuscular Hemoglobin Concent 32.5 32.0-36.0 g/dL Red Cell Distribution Width 18.9 H 11.0-15.5 % Platelet Count 64 L 130-400 K/uL Mean Platelet Volume 9.8 7.5-10.5 fL Nucleated Red Blood Cells 0.0 0.0-0.19 % Immature Granulocyte % (Auto) 0.8 0-1 % Neutrophils (%) (Auto) 87.4 H 40.0-77.0 % Lymphocytes (%) (Auto) 4.2 L 21.0-51.0 % Monocytes (%) (Auto) 5.7 3.0-13.0 % Eosinophils (%) (Auto) 1.6 0.0-8.0 % Basophils (%) (Auto) 0.3 0.0-5.0 % Neutrophils # (Auto) 3.4 1.8-7.7 K/uL Lymphocytes # (Auto) 0.2 L 1.0-4.8 K/uL Monocytes # (Auto) 0.2 0.1-1.0 K/uL Eosinophils # (Auto) 0.06 0.00-0.70 K/uL Basophils # (Auto) 0.01 0.00-0.20 K/uL Absolute Immature Granulocyte (auto 0.03 0-1 K/uL Chemistry Labs: Test 09/16/24 06:04 09/15/24 10:06 Range/Units Sodium Level 136 136-145 mmol/L Potassium Level 4.2 3.5-5.1 mmol/L Chloride Level 109 101-111 mmol/L Carbon Dioxide Level 20 L 21-32 mmol/L Blood Urea Nitrogen 29 H 7-18 mg/dL Creatinine 1.6 H 0.5-1.0 mg/dL Glomerular Filtration Rate Calc 34 >90 mL/min Random Glucose 90 70-105 mg/dL Total Calcium 8.0 L 8.5-10.1 mg/dL Magnesium Level 2.60 H 1.80-2.40 mg/dL Total Bilirubin 0.7 0.2-1.0 mg/dL Direct Bilirubin 0.3 0.0-0.3 mg/dL Aspartate Amino Transf (AST/SGOT) 19 10-37 U/L Alanine Aminotransferase (ALT/SGPT) 9 L 12-78 U/L Alkaline Phosphatase 75 50-136 U/L Total Protein 6.3 6.0-8.3 g/dL Albumin 3.1 L 3.5-5.0 g/dL Coagulation Labs: Test 09/16/24 17:38 Range/Units Prothrombin Time 13.1 H 9.6-11.6 SEC Prothromb Time International Ratio 1.26 H 0.85-1.15 Activated Partial Thromboplast Time 40.0 H 26.3-35.5 SEC DIAGNOSTICS / RADIOLOGY RESULTS: [ ] PLAN NEURO: Minimize central acting medications as possible. Maintain fall precautions, adequate lighting during the day PULMONARY: Supplemental 02 as needed. Maintain aspiration precautions at all times Atrovent, pulmicort, mucomyst and CPT. Aggressive pulmonary toileting No steroids at this time Head of Bed Elevated at all times CXR in AM [place] abx therapy ID on case tacrolimus level pending CARDIOVASCULAR: Follow hemodynamics. Vital signs per facility protocol GI & NUTRITION: Continue with nutritional support. Continue stool softeners and laxatives as needed. KIDNEYS & ELECTROLYTES: Strict monitoring of intake, output and overall fluid balance. Avoid nephrotoxic medications to the extent possible. Medications to be dosed according to renal function. Monitor electrolytes and replace as needed ENDOCRINE: Maintain blood glucose between 100-180 at all times. Hypoglycemia protocol in place INFECTIOUS DISEASE: Trend temperature, WBC and procalcitonin level Follow cultures, deescalate antibiotics as soon as possible. Panculture if new onset fever ONCOLOGY/HEMATOLOGY/COAGULATION: Monitor for s/s of bleeding Monitor hemoglobin, coagulation studies as needed SKIN: Pressure ulcer prevention per facility protocol Specialty mattress ORTHO/REHAB: Continue PT/OT Prophylaxis: Continue GI and DVT prophylaxis Code Status: Full Resuscitation Disposition: TBD Other: Total patient care time exceeds 35 minutes excluding all procedures. ARTURO FREGOSO Sep 17, 2024 00:33
--- NOTE | 2024-09-17 08:08 | PN ---
PROGRESS NOTE PROBLEM LIST: Influenza type a infection Community-acquired pneumonia History of liver transplant and ammonia compromised state secondary to medication History of TAVR Atrial fibrillation with rapid ventricular response present on admission with return to normal sinus rhythm Chronic anticoagulation therapy with Eliquis at 5 mg twice daily chronically INTERIM HISTORY OF PRESENT ILLNESS: Patient did have 2D echocardiography perfo rmed yesterday which revealed TAVR to be functioning adequately however gradient across TAVR was at 47 mmHg and there was some degree of mild mitral stenosis. Patient's telemetry has remained stable and she is currently being evaluated for long-term antibiotics. REVIEW OF SYSTEMS: No fever, headache, chest pain, abdominal pain, nausea, vomiting, or diarrhea. VITAL SIGNS Vital Signs Date Time Temp Pulse Resp B/P (MAP) Pulse Ox O2 Delivery O2 Flow Rate FiO2 09/17/24 06:47 64 20 09/17/24 06:46 N/Cannula Low lpm 3.0 32 09/17/24 04:00 98.4 106/67 97 LABS/MEDS Laboratory Tests Test 09/16/24 17:38 Prothrombin Time 13.1 SEC (9.6-11.6) H Prothromb Time International Ratio 1.26 (0.85-1.15) H Activated Partial Thromboplast Time 40.0 SEC (26.3-35.5) H Current Medications Acetaminophen 500 mg ONCE ONCE PO Last administered on 09/12/24at 07:28; Start 09/12/24 at 07:30; Stop 09/12/24 at 07:31; Status DC Acetaminophen 500 mg STK-MED ONCE .ROUTE; Start 09/12/24 at 07:25; Stop 09/12/24 at 07:25; Status DC Piperacillin Sod/ Tazobactam Sod 3.375 gm ONCE ONCE IV Last administered on 09/12/24at 08:28; Start 09/12/24 at 08:30; Stop 09/12/24 at 08:31; Status DC Ondansetron HCl 4 mg ONCE ONCE IVP Last administered on 09/12/24at 08:22; Start 09/12/24 at 08:30; Stop 09/12/24 at 08:31; Status DC Ondansetron HCl 4 mg STK-MED ONCE .ROUTE; Start 09/12/24 at 08:19; Stop 09/12/24 at 08:19; Status DC Sodium Chloride 1,000 ml @ 0 mls/hr ONCE ONCE IV Last administered on 09/12/24at 08:32; Start 09/12/24 at 08:30; Stop 09/12/24 at 08:31; Status DC Oseltamivir Phosphate 75 mg ONCE ONCE PO Last administered on 09/12/24at 09:45; Start 09/12/24 at 10:00; Stop 09/12/24 at 10:01; Status DC Oseltamivir Phosphate 75 mg BID PO; Start 09/12/24 at 21:00; Stop 09/12/24 at 12:02; Status DC Ondansetron HCl 4 mg Q6H PRN IVP Last administered on 09/16/24at 10:43; Start 09/12/24 at 10:00; Stop 10/12/24 at 09:59 Acetaminophen 650 mg Q4H PRN PO; Start 09/12/24 at 10:00; Stop 09/12/24 at 12:37; Status DC Famotidine 20 mg DAILY PO Last administered on 09/16/24at 08:46; Start 09/12/24 at 21:00; Stop 10/12/24 at 20:59 Sodium Chloride 1,000 ml @ 75 mls/hr [id number] IV Last administered on 09/12/24at 23:22; Start 09/12/24 at 10:00; Stop 09/13/24 at 00:28; Status DC Oseltamivir Phosphate 75 mg Q24H PO Last administered on 09/16/24at 12:05; Start 09/12/24 at 13:00; Stop 09/17/24 at 12:59 Magnesium Sulfate 50 ml @ 0 mls/hr PROTOCOL PRN IV Last administered on 09/16/24at 03:50; Start 09/12/24 at 12:00; Stop 10/12/24 at 11:59 Potassium Chloride 100 ml @ 50 mls/hr AD PRN IV; Start 09/12/24 at 12:00; Stop 10/12/24 at 11:59 Albuterol 1 UDVIAL [id number] IH Last administered on 09/12/24at 19:00; Start 09/12/24 at 12:00; Stop 09/12/24 at 21:30; Status DC Guaifenesin/ Dextromethorphan 10 ml Q4H PO Last administered on 09/14/24at 13:07; Start 09/12/24 at 12:00; Stop 09/14/24 at 20:31; Status DC Acetaminophen 650 mg Q4H PRN PO Last administered on 09/15/24at 14:44; Start at 12:30; Stop 10/12/24 at 12:29 Doxycycline Hyclate 250 ml @ 125 mls/hr Q12H IV Last administered on 09/17/24at 00:40; Start 09/12/24 at 12:30; Stop 09/22/24 at 12:29 Azithromycin 250 ml @ 250 mls/hr Q24H IVPB Last administered on 09/13/24at 12:27; Start 09/12/24 at 12:30; Stop 09/13/24 at 15:26; Status DC Allopurinol 100 mg DAILY PO Last administered on 09/16/24at 08:46; Start 09/13/24 at 09:00; Stop 10/13/24 at 08:59 Apixaban 5 mg BID PO Last administered on 09/16/24at 20:42; Start 09/12/24 at 21:00; Stop 10/12/24 at 20:59 Metoprolol Succinate 25 mg DAILY PO; Start 09/13/24 at 09:00; Stop 09/12/24 at 19:50; Status DC Spironolactone 25 mg DAILY PO Last administered on 09/16/24at 08:46; Start 09/13/24 at 09:00; Stop 10/13/24 at 08:59 Tacrolimus 1 mg DAILY PO Last administered on 09/16/24at 08:46; Start 09/13/24 at 09:00; Stop 10/13/24 at 08:59 Torsemide 20 mg BID PO Last administered on 09/13/24at 08:42; Start 09/12/24 at 21:00; Stop 09/13/24 at 15:26; Status DC Home Med Copper Gluconate (Copper... DAILY PO Last administered on 09/16/24at 08:47; Start 09/13/24 at 09:00; Stop 10/13/24 at 08:59 Folic Acid 1 mg DAILY PO Last administered on 09/16/24at 08:46; Start 09/13/24 at 09:00; Stop 10/13/24 at 08:59 Home Med Macitentan (Opsumit) 1 TAB DAILY PO Last administered on 09/16/24at 0 8:48; Start 09/13/24 at 09:00; Stop 10/13/24 at 08:59 Sertraline HCl 100 mg DAILY PO Last administered on 09/16/24at 08:47; Start 09/13/24 at 09:00; Stop 10/13/24 at 08:59 Home Med Tadalafil 20 MG DAILY PO Last administered on 09/16/24at 08:48; Start 09/13/24 at 09:00; Stop 10/13/24 at 08:59 Home Med Tenofovir Disoproxil Fumar... DAILY PO Last administered on 09/16/24at 08:48; Start 09/13/24 at 09:00; Stop 10/13/24 at 08:59 Metoprolol Succinate 12.5 mg HS PO Last administered on 09/16/24at 20:42; Start 09/12/24 at 20:00; Stop 10/13/24 at 08:59 Metoprolol Tartrate 25 mg STK-MED ONCE .ROUTE; Start 09/12/24 at 19:36; Stop 09/12/24 at 19:36; Status DC Metoprolol Succinate 12.5 mg HS PO; Start 09/12/24 at 21:00; Stop 09/12/24 at 19:56; Status DC Metoprolol Succinate 25 mg STK-MED ONCE PO; Start 09/12/24 at 19:49; Stop 09/12/24 at 19:49; Status DC Ipratropium [place] 0.5 MG [id number] IH Last administered on 09/17/24at 00:02; Start 09/13/24 at 00:00; Stop 10/13/24 at 00:00 Potassium Chloride 100 ml @ 100 mls/hr AD PRN IV; Start 09/13/24 at 00:00; Stop 10/13/24 at 00:00 Potassium Chloride 10 meq AD PRN PO; Start 09/13/24 at 00:00; Stop 10/13/24 at 00:00 Potassium Chloride 10 meq AD PRN PO; Start 09/13/24 at 00:00; Stop 09/13/24 at 10:31; Status DC Potassium Chloride 100 ml @ 100 mls/hr AD PRN IV; Start 09/13/24 at 00:00; Stop 09/12/24 at 23:59; Status DC Loperamide HCl 4 mg ONCE ONCE PO; Start 09/13/24 at 00:30; Stop 09/13/24 at 00:34; Status DC Loperamide HCl 2 mg STK-MED ONCE PO Last administered on 09/13/24at 00:31; Start 09/13/24 at 00:29; Stop 09/13/24 at 00:29; Status DC Potassium Chloride 10 meq AD PRN PO Last administered on 09/15/24at 21:58; Start 09/13/24 at 11:00; Stop 10/13/24 at 00:00 Budesonide 0.25 mg BIDRESP IH Last administered on 09/16/24at 19:08; Start 09/13/24 at 18:00; Stop 10/13/24 at 17:59 Pharmacy Profile Note 1 each ONCE MISC; Start 09/13/24 at 11:00; Stop 09/13/24 at 11:01; Status DC Albuterol Sulfate 2.5MG = 3ML [id number] IH Last administered on 09/15/24at 11:37; Start 09/13/24 at 12:00; Stop 09/15/24 at 12:55; Status DC Loperamide HCl 2 mg Q6H PRN PO Last administered on 09/16/24at 17:40; Start 09/13/24 at 21:30; Stop 10/13/24 at 21:29 Tacrolimus 0.5 mg HS PO Last administered on 09/16/24 20:41; Start 09/13/24 at 22:00; Stop 10/13/24 at 21:59 Acetaminophen 650 mg Q6H PRN PO Last administered on 09/16/24at 20:50; Start 09/13/24 at 22:00; Stop 10/13/24 at 21:59 Fluconazole/ Sodium Chloride 200 mg Q24H IV Last administered on 09/16/24at 17:36; Start 09/14/24 at 16:00; Stop 10/14/24 at 15:59 Vancomycin HCl 1 each AD IV; Start 09/14/24 at 16:00; Stop 09/15/24 at 12:40; Status DC Nystatin 5 ml QID PO Last administered on 3/10/25at 20:41; Start 09/14/24 at 17:00; Stop 10/14/24 at 16:59 Vancomycin HCl 250 ml @ 125 mls/hr ONCE ONCE IV Last administered on 09/14/24at 16:13; Start 09/14/24 at 16:30; Stop 09/14/24 at 18:29; Status DC Vancomycin HCl 750 mg Q24H IVPB; Start 09/15/24 at 16:30; Stop 09/15/24 at 12:40; Status DC Guaifenesin/ Dextromethorphan 10 ml Q4H PRN PO; Start 09/14/24 at 20:30; Stop 10/12/24 at 11:59 Torsemide 20 mg ONCE ONCE PO Last administered on 09/14/24at 20:42; Start 09/14/24 at 20:30; Stop 09/14/24 at 20:32; Status DC Cefepime HCl 1 gm Q24H IVPB Last administered on 09/16/24at 10:43; Start 09/15/24 at 11:30; Stop 09/25/24 at 11:29 TELEMETRY: Sinus rhythm ASSESSMENT: Paroxysmal atrial fibrillation with rapid ventricular response with return to normal sinus rhythm Influenza type a infection on droplet precaution Pneumonia Immunocompromise state after liver transplant and antirejection medical therapy History of aortic stenosis status post TAVR with a peak gradient across prostheses of 47 mm of mercury Mild-moderate mitral stenosis PLAN: At this time no new recommendations. Patient will remain on Eliquis as this medication she came in on no need to make any changes. We do think that patient has episode of atrial fibrillation with rapid ventricular response could have been exacerbated by albuterol Atrovent nebs and she is currently using those on an as-needed basis. Would continue patient's other medications. Patient is stable from a cardiac standpoint to be transferred to assisted facility. We will sign off call with any questions or problems. Case was discussed with the patient's nurse GEOVANNY Ribeiro JUAN J MD Sep 17, 2024 08:08
--- NOTE | 2024-09-17 08:38 | NUR ---
HELD MEDICATION A.M. DOSE OF ELIQUIS HELD PER DUY PEARL RECOMMENDATION. PER DUY PEARL, ELIQUIS IS TO BE HELD UNTIL LABS CAN BE REVIEWED.
--- NOTE | 2024-09-17 12:07 | PN ---
INFECTIOUS DISEASE PROGRESS NOTE Date of Service: Sep 17, 2024 SUBJECTIVE: This is 69-year-old female patient who was seen and examined at bedside in room 327. Patient is awake, alert and oriented x3. No fever reported throughout the night and current temperature is 97.7. We will continue on cefepime, fluconazole, doxycycline and Tamiflu. Patient is still reporting dyspnea on exertion. Continues on oxygen support via nasal cannula 2 liters/minute. We will continue to monitor patient. PHYSICAL EXAM EYES: Anicteric. Pupils equal and reactive. HENT: No oral thrush seen, moist Oral mucosa. NECK: Supple, no JVD or thyromegaly. LUNGS: Good air entry. No rales, no rhonchi. Coughing episodes. CARDIOVASCULAR: S1, S2 regular. No murmur heard. ABDOMEN: Soft, non tender, bowel sounds present, no organomegaly CENTRAL NERVOUS SYSTEM: Awake, alert, oriented x 3. SKIN: No rashes, no swelling. LYMPHATICS: No peripheral lymphadenopathy. MUSCULOSKELETAL: No joint swelling, erythema or tenderness. EXTREMITIES: No cyanosis or clubbing. BACK: No deformity, no pressure ulcer. GENITOURINARY: No dysuria or hematuria. Vital Sign (Last 12 Hours) 09/17/24 09/17/24 09/17/24 09/17/24 04:00 06:46 06:47 08:00 Temp 98.4 98.1 Pulse 71 64 64 72 Resp 19 18 20 21 B/P (MAP) 106/67 119/85 Pulse Ox 97 97 O2 Delivery CPAP N/Cannula Low lpm CPAP O2 Flow Rate 3.0 FiO2 32 09/17/24 09/17/24 08:38 10:10 Pulse 70 Resp 18 Pulse Ox 97 O2 Delivery Nasal Cannula* O2 Flow Rate 3 FiO2 32 Intake & Output (last 24hrs) 09/16/24 09/16/24 09/17/24 15:00 23:00 07:00 Intake Total 250.0 ml Balance 250.0 ml LABS: Laboratory: Test 09/16/24 17:38 09/16/24 06:04 Range/Units Prothrombin Time 13.1 H 9.6-11.6 SEC Prothromb Time International Ratio 1.26 H 0.85-1.15 Activated Partial Thromboplast Time 40.0 H 26.3-35.5 SEC White Blood Count 3.1 L 4.8-10.8 K/uL Red Blood Count 2.24 L 4.00-5.50 MIL/uL Hemoglobin 7.5 L 12.0-16.0 g/dL Hematocrit 23.1 L 36-48 % Mean Corpuscular Volume 103.1 H 79-99 fL Mean Corpuscular Hemoglobin 33.5 H 27.0-33.0 pg Mean Corpuscular Hemoglobin Concent 32.5 32.0-36.0 g/dL Red Cell Distribution Width 18.9 H 11.0-15.5 % Platelet Count 64 L 130-400 K/uL Mean Platelet Volume 9.8 7.5-10.5 fL Nucleated Red Blood Cells 0.0 0.0-0.19 % Sodium Level 136 136-145 mmol/L Potassium Level 4.2 3.5-5.1 mmol/L Chloride Level 109 101-111 mmol/L Carbon Dioxide Level 20 L 21-32 mmol/L Blood Urea Nitrogen 29 H 7-18 mg/dL Creatinine 1.6 H 0.5-1.0 mg/dL Glomerular Filtration Rate Calc 34 >90 mL/min Random Glucose 90 70-105 mg/dL Total Calcium 8.0 L 8.5-10.1 mg/dL Magnesium Level 2.60 H 1.80-2.40 mg/dL ASSESSMENT: Multifocal pneumonia. Influenza Viral infection type A. Sepsis. History of liver transplant. Underlying immunosuppression. History of pulmonary hypertension. Acute renal failure. Anemia. PLAN: Continue on cefepime. Continue on fluconazole. Continue on doxycycline. Continue on Tamiflu. Continue GI prophylaxis. Continue bronchodilators. Continue oxygen support. We will follow up on the cultures results. We will monitor electrolytes. This case was reviewed and discussed with my supervising physician and the above assessment and plan was formulated and agreed upon. ATTESTATION BY PHYSICIAN I have seen and examined the patient. I reviewed the documentation, medical decision making, and treatment plan as noted by the mid-level provider above. I agree with the findings and plan of care. BRIDGER DREW MD, M[employer] L STRATEGIC PARTNER DEVELOPMENT MANAGER Sep 17, 2024 12:07
[2024-09-17] MEDS: fluTICasone proPIONate 50MCG/SPRAY 16 GM BOTTLE EN SCH (12:30)
--- NOTE | 2024-09-17 12:32 | PN ---
[facility] PROGRESS NOTE Date of Service: Sep 17, 2024 Time of Service: 12:25 SUBJECTIVE: [ ] This is a 51-year-old female that presents in ER with generalized buttock witnessed in fever and chills. Patient was found to have influenza a. She continues the need for oxygen we will have respiratory to titrate as tolerated. She uses CPAP overnight. Device from home. We will get Physical therapy. Continues empiric antibiotics 09/14/2024 patient is seen and examined patient continues on nasal cannula at2 L. Patient reports she does not have home oxygen. Patient continues with dyspnea with minimal exertion. Most likely we will need a 6 minute walk close to discharge. Encouraged patient to continue to use IS while awake. Denied chest pain. 09/15/24 received patient is sitting in chair nasal cannula 2 L. Dyspneic with minimal exertion. Patient we will get a Impella to be used every hour while awake. Patient we will need a 6 minute walk close to discharge she does use CPAP at home. Denied chest pain. 09/16/24 patient continues with dyspnea and cough. Requiring oxygen supplemental2 L. patient is fully awake alert oriented x3. newscast producer's is following and Infectious Disease was consulted yesterday given to immunosuppressant stay. Patient agreed for placement for continuing of IV antibiotics and respiratory rehab. Patient has a history AFib patient went into AFib [facility] fountain vending mechanic's was consulted. Patient converted back patient was started on metoprolol [id number] mg half a tab daily. 09/17/2024 Today on bedside evaluation patient was found awake alert and oriented x 3. The power chart reviewed, vital signs, laboratory tests, imaging test and medications have been reviewed. Primary nurse at bedside during my rounds. Latest vitals are stable, sinus rhythm, satting 97% on 2 L nasal cannula. White count is 3.1, H&H 7.5/23.1, BUN 29, creatinine 1.6, renal indices slightly improved from yesterday. Continue IV cefepime, fluconazole, doxycycline and p.o. Tamiflu at ID's direction. Continue CPT with DuoNebs as needed. Crew Member consulted. Recommends to continue respiratory therapy and iv antibiotics. Case management consulted for SNF placement. REVIEW OF SYSTEMS A12 point ROS was obtained all relevant positive documented otherwise ROS n egative PHYSICAL EXAM GENERAL APPEARANCE: The patient is awake, alert, on nasal cannula2 L. Appears acutely ill. NEUROLOGICAL: Cranial nerves II-XII grossly intact. Motor is 5/5 in bilateral upper and lower extremities proximal to distal. No sensory deficits. HEENT: Face is symmetric. Pupils are equal and reactive. Extraocular movements are intact. NECK: Supple. No JVD. No thyromegaly. No submental, submandibular, pre- /postauricular, occipital or supraclavicular lymphadenopathy. CHEST: Normal chest expansion. No Telemetry. LUNGS: Absence of any rales, ++ wheezing. CARDIOVASCULAR: Regular. S1 and S2 normal. No appreciable rubs, murmurs or gallops. ABDOMEN: Soft, nontender, and nondistended. There is no rebound, voluntary guarding, or rigidity. : Deferred. No Hodgson. EXTREMITIES: Non-edematous and not cyanotic. No clubbing. Good capillary refill. SKIN: No skin breakdown. Vital Signs (last 8hr) Date Time Temp Pulse Resp B/P (MAP) Pulse Ox O2 Delivery O2 Flow Rate FiO2 09/17/24 10:10 70 18 09/17/24 08:38 97 Nasal Cannula* 3 32 09/17/24 08:00 98.1 72 21 119/85 97 CPAP 09/17/24 06:47 64 20 09/17/24 06:46 64 18 N/Cannula Low lpm 3.0 32 LABS: Laboratory: Test 09/16/24 17:38 09/16/24 06:04 Range/Units Prothrombin Time 13.1 H 9.6-11.6 SEC Prothromb Time International Ratio 1.26 H 0.85-1.15 Activated Partial Thromboplast Time 40.0 H 26.3-35.5 SEC White Blood Count 3.1 L 4.8-10.8 K/uL Red Blood Count 2.24 L 4.00-5.50 MIL/uL Hemoglobin 7.5 L 12.0-16.0 g/dL Hematocrit 23.1 L 36-48 % Mean Corpuscular Volume 103.1 H 79-99 fL Mean Corpuscular Hemoglobin 33.5 H 27.0-33.0 pg Mean Corpuscular Hemoglobin Concent 32.5 32.0-36.0 g/dL Red Cell Distribution Width 18.9 H 11.0-15.5 % Platelet Count 64 L 130-400 K/uL Mean Platelet Volume 9.8 7.5-10.5 fL Nucleated Red Blood Cells 0.0 0.0-0.19 % Sodium Level 136 136-145 mmol/L Potassium Level 4.2 3.5-5.1 mmol/L Chloride Level 109 101-111 mmol/L Carbon Dioxide Level 20 L 21-32 mmol/L Blood Urea Nitrogen 29 H 7-18 mg/dL Creatinine 1.6 H 0.5-1.0 mg/dL Glomerular Filtration Rate Calc 34 >90 mL/min Random Glucose 90 70-105 mg/dL Total Calcium 8.0 L 8.5-10.1 mg/dL Magnesium Level 2.60 H 1.80-2.40 mg/dL Current Medications Medications (Trade) Dose Ordered Sig/Sandy Route PRN Reason Start Time Stop Time Status Last Admin Dose Admin Acetaminophen (TYLenol 325MG TAB) 650 mg Q4H PRN PO TEMPERATURE GREATER THAN 101.5 09/12/24 10:00 09/12/24 12:37 DC Acetaminophen (TYLenol 325MG TAB) 650 mg Q4H PRN PO TEMPERATURE GREATER THAN 101.5 09/12/24 12:30 10/12/24 12:29 09/15/24 14:44 650 MG Acetaminophen (TYLenol 325MG TAB) 650 mg Q6H PRN PO MILD PAIN (1-3) 09/13/24 22:00 10/13/24 21:59 09/16/24 20:50 650 MG Albuterol (DUOneb) 1 UDVIAL [id number] IH 09/12/24 12:00 09/12/24 21:30 DC 09/12/24 19:00 1 UDVIAL Albuterol Sulfate (Proventil 0.083% 2.5mg/3ml) 2.5MG = 3ML [id number] IH 09/13/24 12:00 09/15/24 12:55 DC 09/15/24 11:37 2.5 MG Allopurinol (ZYLOprim 100MG) 100 mg DAILY PO 09/13/24 09:00 10/13/24 08:59 09/17/24 08:39 100 MG Apixaban (EliquIS) 5 mg BID PO 09/12/24 21:00 10/12/24 20:59 09/16/24 20:42 5 MG Azithromycin 250 ml @ 250 mls/hr Q24H IVPB 09/12/24 12:30 09/13/24 15:26 DC 09/13/24 12:27 250 MLS/HR Budesonide (Pulmicort 0.25mg/2ml) 0.25 mg BIDRESP IH 09/13/24 18:00 10/13/24 17:59 09/17/24 10:07 0.25 MG Cefepime HCl (MAXipime 1 GM vial) 1 gm Q24H IVPB 09/15/24 11:30 09/25/24 11:29 09/16/24 10:43 1 GM Doxycycline Hyclate 250 ml @ 125 mls/hr Q12H IV 09/12/24 12:30 09/22/24 12:29 09/17/24 00:40 125 MLS/HR Famotidine (Pepcid 20mg Tab) 20 mg DAILY PO 09/12/24 21:00 10/12/24 20:59 09/17/24 08:40 20 MG Fluconazole/ Sodium Chloride (DiFLUCan 200 MG/ NS 100 ML) 200 mg Q24H IV 09/14/24 16:00 10/14/24 15:59 09/16/24 17:36 200 MG Folic Acid (FOLic ACID 1 MG TABLET) 1 mg DAILY PO 09/13/24 09:00 10/13/24 08:59 09/17/24 08:40 1 MG Guaifenesin/ Dextromethorphan (RobiTUSSin DM 200/20MG 10ML) 10 ml Q4H PO 09/12/24 12:00 09/14/24 20:31 DC 09/14/24 13:07 10 ML Guaifenesin/ Dextromethorphan (RobiTUSSin DM 200/20MG 10ML) 10 ml Q4H PRN PO COUGH 09/14/24 20:30 10/12/24 11:59 Home Med (Home Medication) Copper Gluconate (Copper... DAILY PO 09/13/24 09:00 10/13/24 08:59 09/17/24 08:40 1 EACH Home Med (Home Medication) Macitentan (Opsumit) 1 TAB DAILY PO 09/13/24 09:00 10/13/24 08:59 09/17/24 08:40 1 EACH Home Med (Home Medication) Tadalafil 20 MG DAILY PO 09/13/24 09:00 10/13/24 08:59 09/17/24 08:40 2 EACH Home Med (Home Medication) Tenofovir Disoproxil Fumar... DAILY PO 09/13/24 09:00 10/13/24 08:59 09/17/24 08:40 1 EACH Ipratropium Crawford (AtrovENT UD) 0.5 MG [id number] IH 09/13/24 00:00 10/13/24 00:00 09/17/24 10:07 0.5 MG Loperamide HCl (Imodium) 2 mg Q6H PRN PO DIARRHEA 09/13/24 21:30 10/13/24 21:29 09/16/24 17:40 2 MG Magnesium Sulfate 50 ml @ 0 mls/hr PROTOCOL PRN IV low mag level 09/12/24 12:00 10/12/24 11:59 09/16/24 03:50 25 MLS/HR Metoprolol Succinate (TopROL XL) 12.5 mg HS PO 09/12/24 20:00 10/13/24 08:59 09/16/24 20:42 12.5 MG Metoprolol Succinate (TopROL XL) 12.5 mg HS PO 09/12/24 21:00 09/12/24 19:56 DC Metoprolol Succinate (TopROL XL) 25 mg DAILY PO 09/13/24 09:00 09/12/24 19:50 DC Nystatin (NYSTatin 149632 UNIT/ML 5ML UDCUP) 5 ml QID PO 09/14/24 17:00 10/14/24 16:59 09/17/24 08:38 5 ML Ondansetron HCl (zoFRAN 4MG INJ) 4 mg Q6H PRN IVP NAUSEA/VOMITING 09/12/24 10:00 10/12/24 09:59 09/16/24 10:43 4 MG Oseltamivir Phosphate (Tamiflu) 75 mg BID PO 09/12/24 21:00 09/12/24 12:02 DC Oseltamivir Phosphate (Tamiflu) 75 mg Q24H PO 09/12/24 13:00 09/17/24 12:59 09/16/24 12:05 75 MG Pharmacy Profile Note (Pharmacy Communication) 1 each ONCE MISC 09/13/24 11:00 09/13/24 11:01 DC Potassium Chloride 100 ml @ 50 mls/hr AD PRN IV POTASSIUM PROTOCOL 09/12/24 12:00 10/12/24 11:59 Potassium Chloride 100 ml @ 100 mls/hr AD PRN IV POTASSIUM PROTOCOL 09/13/24 00:00 09/12/24 23:59 DC Potassium Chloride 100 ml @ 100 mls/hr AD PRN IV POTASSIUM PROTOCOL 09/13/24 00:00 10/13/24 00:00 Potassium Chloride (K-Dur 10meq Sr Tab) 10 meq AD PRN PO POTASSIUM PROTOCOL 09/13/24 11:00 10/13/24 00:00 09/15/24 21:58 10 MEQ Potassium Chloride (K-Dur/Klor-Con 20meq) 10 meq AD PRN PO POTASSIUM PROTOCOL 09/13/24 00:00 09/13/24 10:31 DC Potassium Chloride (KCl 10% Elixir 20meq/15ml) 10 meq AD PRN PO POTASSIUM PROTOCOL 09/13/24 00:00 10/13/24 00:00 Sertraline HCl (ZOloft 50 mg tab) 100 mg DAILY PO 09/13/24 09:00 10/13/24 08:59 09/17/24 08:39 100 MG Sodium Chloride 1,000 ml @ 75 mls/hr [id number] IV 09/12/24 10:00 09/13/24 00:28 DC 09/12/24 23:22 75 MLS/HR Spironolactone (Aldactone 25mg) 25 mg DAILY PO 09/13/24 09:00 10/13/24 08:59 09/17/24 08:39 25 MG Tacrolimus (ProgRAF 0.5MG) 0.5 mg HS PO 09/13/24 22:00 10/13/24 21:59 09/16/24 20:41 0.5 MG Tacrolimus (ProgRAF 1MG) 1 mg DAILY PO 09/13/24 09:00 10/13/24 08:59 09/17/24 08:39 1 MG Torsemide (Demadex) 20 mg BID PO 09/12/24 21:00 09/13/24 15:26 DC 09/13/24 08:42 20 MG Vancomycin HCl (Vancomycin 750mg) 750 mg Q24H IVPB 09/15/24 16:30 09/15/24 12:40 DC Vancomycin HCl (Vancomycin Protocol) 1 each AD IV 09/14/24 16:00 09/15/24 12:40 DC DIAGNOSTICS / RADIOLOGY: [ ] ASSESSMENT: Acute respiratory failure with hypoxia POA Sepsis secondary to viral syndrome influenza a POA Positive influenza a infection POA Viral syndrome POA Immunosuppression state on Prograf POA Hypercoagulable state secondary AFib t on Eliquis POA Anemia on chronic renal failure POA Acute on chronic renal failure POA History liver transplant on immunosuppressive drugs prograf POA Moderate protein calorie malnutrition. POA Chronic heart failure unknown LV EF per patient Physical deconditioning given to dyspnea on exertion POA PLAN: Admit: Medical-surgical floor droplet isolation condition: Guarded Status: Full code IVF: Heplock Diet heart healthy, aspiration precautions Consultants newscast producer's infectious disease Antibiotics: Tamiflu 75 mg p.o. daily doxycycline IV cefepime IV Diflucan Atrovent, pulmicort, mucomyst and CPT. Aggressive pulmonary toileting Continue with home CPAP bedtime continue oxygen supplement to keep O2 sats above 92%. 6 minute walk close to discharge. Encouraged patient to use Impella while awake out of bed to chair as tolerated. Labs cbc, cmp, mag Replace electrolytes as needed as per protocol to keep potassium above 4.0 magnesium 2.0. Patient continues with Prograf1 mg p.o. daily Continue with Eliquis5 mg b.i.d.. Metoprolol succinate 12.5 at bedtime. PRN: MEDICATIONS Tylenol 650 mg po every 4 hrs for fever Zofran 4 mg IV every 6 hrs for n/v Supportive measures: DVT ppx, GI ppx all questions answered Case management for SNF Supervising MD: Dr. Baltazar c/d This document was generated in part using voice recognition software, occasional wrong word or sound alike substitutions may have occurred due to the inherent limitations of voice recognition software. Read the chart carefully and recognize using context, where the substitutions have occurred. Although every effort was made to edit the content, internal audit director and typing errors may occur DUY BENTON Sep 17, 2024 12:32
[2024-09-17] MEDS: LORATAdine 10 mg 10 MG TABLET PO SCH (12:33)
[2024-09-17 13:40] LABS: ABG BASE EXCESS -8.5 mmol/L (-2.0-3.0); ABG HCO3 14.1 mmol/L (21.0-28.0); ABG OXYGEN SATURATION 95.7 % (94.0-98.0); ABG PCO2 23 mmHg (32-45); ABG PH 7.399 (7.350-7.450); PO2, ARTERIAL BG 76.8 mmHg (83.0-108.0); VENT MODE, BG NC (ROOM AIR)
--- NOTE | 2024-09-17 14:36 | CONS ---
NEPHROLOGY CONSULTATION NOTE Date/Time Patient Seen: Sep 17, 2024 1310 Reason for Consultation: Renal failure, shortness of breath HISTORY OF PRESENT ILLNESS: This is a 69-year-old female with a past medical history of hypertension, liver disease S/p liver transplant, chronic congestive heart failure with unknown LVEF, pulmonary hypertension, history of aortic stenosis S/p remote TAVR with a bovine valve, obesity, and paroxysmal atrial fibrillation on anticoagulation with Eliquis. She presented to the emergency with complaints of shortness of breath, cough and fever Positive for influenza a, she has completed Tamiflu treatment. CT of the chest showed bilateral infiltrates compatible with pneumonia She continues to be followed by pulmonology. She continues on antibiotics as per ID. Vancomycin has been discontinued Prograf has been restarted Case management coordinating SNF placement. She was noted to have worsening renal function and anemia. Renal function remained stable Electrolytes are stable. Hemoglobin is stable. Eliquis currently on hold. She was seen in the medical floor, in no acute distress No family at the bedside Prognosis remains guarded REVIEW OF SYSTEMS: GENERAL: Positive for generalized weakness NEUROLOGIC: Negative for any blurry vision, blind spots, double vision, facial asymmetry, dysphagia, dysarthria, hemiparesis, hemisensory deficits, vertigo, ataxia. HEENT: Negative for any head trauma, neck trauma, neck stiffness, photophobia, phonophobia, sinusitis, rhinitis. CARDIAC: Negative for any chest pain, dyspnea on exertion, paroxysmal nocturnal dyspnea, peripheral edema. PULMONARY: Negative for any shortness of breath, wheezing, COPD, or TB exposure. GASTROINTESTINAL: Negative for any abdominal pain, nausea, vomiting, bright red blood per rectum, melena. GENITOURINARY: Negative for any dysuria, hematuria, incontinence. INTEGUMENTARY: Negative for any rashes, cuts, insect bites. RHEUMATOLOGIC: Negative for any joint pains, photosensitive rashes, history of vasculitis or kidney problems. HEMATOLOGIC: Negative for any abnormal bruising, frequent infections or bleeding. PAST MEDICAL HISTORY: Hypertension, liver disease S/p liver transplant, chronic congestive heart failure with unknown LVEF, pulmonary hypertension, history of aortic stenosis S/p remote TAVR with a bovine valve, obesity, and paroxysmal atrial fibrillation on anticoagulation with Eliquis. PAST SURGICAL HISTORY: Liver transplant, aortic valve replacement, cholecystectomy PAST SOCIAL HISTORY: Denies use of alcohol, tobacco or illicit drugs FAMILY HISTORY: Noncontributory PHYSICAL EXAM: GENERAL: Alert and oriented x 3. No acute distress. Well-nourished. EYES: EOMI. Anicteric. HENT: Moist mucous membranes. No scleral icterus. No cervical lymphadenopathy. LUNGS: Clear to auscultation bilaterally. No accessory muscle use. CARDIOVASCULAR: Regular rate and rhythm. No murmur. No JVD. ABDOMEN: Soft, non-tender and non-distended. No palpable masses. EXTREMITIES: No edema. Non-tender. SKIN: No rashes or lesions. Warm. NEUROLOGIC: No focal neurological deficits. CN II-XII grossly intact, but not individually tested. PSYCHIATRIC: Cooperative. Appropriate mood and affect. MEDICATIONS: [ ] Current Medications Medications (Trade) Dose Ordered Sig/Sandy Route PRN Reason Start Time Stop Time Status Last Admin Dose Admin Acetaminophen (TYLenol 325MG TAB) 650 mg Q4H PRN PO TEMPERATURE GREATER THAN 101.5 09/12/24 10:00 09/12/24 12:37 DC Acetaminophen (TYLenol 325MG TAB) 650 mg Q4H PRN PO TEMPERATURE GREATER THAN 101.5 09/12/24 12:30 10/12/24 12:29 09/15/24 14:44 650 MG Acetaminophen (TYLenol 325MG TAB) 650 mg Q6H PRN PO MILD PAIN (1-3) 09/13/24 22:00 10/13/24 21:59 09/17/24 12:33 650 MG Albuterol (DUOneb) 1 UDVIAL [id number] 09/12/24 12:00 09/12/24 21:30 DC 09/12/24 19:00 1 UDVIAL Albuterol Sulfate (Proventil 0.083% 2.5mg/3ml) 2.5MG = 3ML [id number] 09/13/24 12:00 09/15/24 12:55 DC 09/15/24 11:37 2.5 MG Allopurinol (ZYLOprim 100MG) 100 mg DAILY PO 09/13/24 09:00 10/13/24 08:59 09/17/24 08:39 100 MG Apixaban (EliquIS) 5 mg BID PO 09/12/24 21:00 10/12/24 20:59 09/16/24 20:42 5 MG Azithromycin 250 ml @ 250 mls/hr Q24H IVPB 09/12/24 12:30 09/13/24 15:26 DC 09/13/24 12:27 250 MLS/HR Budesonide (Pulmicort 0.25mg/2ml) 0.25 mg BIDRESP IH 09/13/24 18:00 10/13/24 17:59 09/17/24 10:07 0.25 MG Cefepime HCl (MAXipime 1 GM vial) 1 gm Q24H IVPB 09/15/24 11:30 09/25/24 11:29 09/17/24 12:34 1 GM Doxycycline Hyclate 250 ml @ 125 mls/hr Q12H IV 09/12/24 12:30 09/22/24 12:29 09/17/24 12:34 125 MLS/HR Famotidine (Pepcid 20mg Tab) 20 mg DAILY PO 09/12/24 21:00 10/12/24 20:59 09/17/24 08:40 20 MG Fluconazole/ Sodium Chloride (DiFLUCan 200 MG/ NS 100 ML) 200 mg Q24H IV 09/14/24 16:00 10/14/24 15:59 09/16/24 17:36 200 MG Fluticasone Propionate (FLOnase 50 mcg/ spray 16g bottle) 2 SPRAYS DAILY EN 09/17/24 12:30 10/17/24 12:29 Folic Acid (FOLic ACID 1 MG TABLET) 1 mg DAILY PO 09/13/24 09:00 10/13/24 08:59 09/17/24 08:40 1 MG Guaifenesin/ Dextromethorphan (RobiTUSSin DM 200/20MG 10ML) 10 ml Q4H PO 09/12/24 12:00 09/14/24 20:31 DC 09/14/24 13:07 10 ML Guaifenesin/ Dextromethorphan (RobiTUSSin DM 200/20MG 10ML) 10 ml Q4H PRN PO COUGH 09/14/24 20:30 10/12/24 11:59 Home Med (Home Medication) Copper Gluconate (Copper... DAILY PO 09/13/24 09:00 10/13/24 08:59 09/17/24 08:40 1 EACH Home Med (Home Medication) Macitentan (Opsumit) 1 TAB DAILY PO 09/13/24 09:00 10/13/24 08:59 09/17/24 08:40 1 EACH Home Med (Home Medication) Tadalafil 20 MG DAILY PO 09/13/24 09:00 10/13/24 08:59 09/17/24 08:40 2 EACH Home Med (Home Medication) Tenofovir Disoproxil Fumar... DAILY PO 09/13/24 09:00 10/13/24 08:59 09/17/24 08:40 1 EACH Ipratropium [place] (AtrovENT UD) 0.5 MG [id number] IH 09/13/24 00:00 10/13/24 00:00 09/17/24 10:07 0.5 MG Loperamide HCl (Imodium) 2 mg Q6H PRN PO DIARRHEA 09/13/24 21:30 10/13/24 21:29 09/16/24 17:40 2 MG Loratadine (LORATAdine 10 mg) 10 mg DAILY PO 09/17/24 12:30 10/17/24 12:29 09/17/24 12:33 10 MG Magnesium Sulfate 50 ml @ 0 mls/hr PROTOCOL PRN IV low mag level 09/12/24 12:00 10/12/24 11:59 09/16/24 03:50 25 MLS/HR Metoprolol Succinate (TopROL XL) 12.5 mg HS PO 09/12/24 20:00 10/13/24 08:59 09/16/24 20:42 12.5 MG Metoprolol Succinate (TopROL XL) 12.5 mg HS PO 09/12/24 21:00 09/12/24 19:56 DC Metoprolol Succinate (TopROL XL) 25 mg DAILY PO 09/13/24 09:00 09/12/24 19:50 DC Nystatin (NYSTatin [id number] UNIT/ML 5ML UDCUP) 5 ml QID PO 09/14/24 17:00 10/14/24 16:59 09/17/24 12:34 5 ML Ondansetron HCl (zoFRAN 4MG INJ) 4 mg Q6H PRN IVP NAUSEA/VOMITING 09/12/24 10:00 10/12/24 09:59 09/16/24 10:43 4 MG Oseltamivir Phosphate (Tamiflu) 75 mg BID PO 09/12/24 21:00 09/12/24 12:02 DC Oseltamivir Phosphate (Tamiflu) 75 mg Q24H PO 09/12/24 13:00 09/17/24 12:59 DC 09/16/24 12:05 75 MG Pharmacy Profile Note (Pharmacy Communication) 1 each ONCE MISC 09/13/24 11:00 09/13/24 11:01 DC Potassium Chloride 100 ml @ 50 mls/hr AD PRN IV POTASSIUM PROTOCOL 09/12/24 12:00 10/12/24 11:59 Potassium Chloride 100 ml @ 100 mls/hr AD PRN IV POTASSIUM PROTOCOL 09/13/24 00:00 09/12/24 23:59 DC Potassium Chloride 100 ml @ 100 mls/hr AD PRN IV POTASSIUM PROTOCOL 09/13/24 00:00 10/13/24 00:00 Potassium Chloride (K-Dur 10meq Sr Tab) 10 meq AD PRN PO POTASSIUM PROTOCOL 09/13/24 11:00 10/13/24 00:00 09/15/24 21:58 10 MEQ Potassium Chloride (K-Dur/Klor-Con 20meq) 10 meq AD PRN PO POTASSIUM PROTOCOL 09/13/24 00:00 09/13/24 10:31 DC Potassium Chloride (KCl 10% Elixir 20meq/15ml) 10 meq AD PRN PO POTASSIUM PROTOCOL 09/13/24 00:00 10/13/24 00:00 Sertraline HCl (ZOloft 50 mg tab) 100 mg DAILY PO 09/13/24 09:00 10/13/24 08:59 09/17/24 08:39 100 MG Sodium Chloride 1,000 ml @ 75 mls/hr [id number] IV 09/12/24 10:00 09/13/24 00:28 DC 09/12/24 23:22 75 MLS/HR Spironolactone (Aldactone 25mg) 25 mg DAILY PO 09/13/24 09:00 10/13/24 08:59 09/17/24 08:39 25 MG Tacrolimus (ProgRAF 0.5MG) 0.5 mg HS PO 09/13/24 22:00 10/13/24 21:59 09/16/24 20:41 0.5 MG Tacrolimus (ProgRAF 1MG) 1 mg DAILY PO 09/13/24 09:00 10/13/24 08:59 09/17/24 08:39 1 MG Torsemide (Demadex) 20 mg BID PO 09/12/24 21:00 09/13/24 15:26 DC 09/13/24 08:42 20 MG Vancomycin HCl (Vancomycin 750mg) 750 mg Q24H IVPB 09/15/24 16:30 09/15/24 12:40 DC Vancomycin HCl (Vancomycin Protocol) 1 each AD IV 09/14/24 16:00 09/15/24 12:40 DC Vital Signs (last 8hr) Date Time Temp Pulse Resp B/P (MAP) Pulse Ox O2 Delivery O2 Flow Rate FiO2 09/17/24 12:00 97.7 78 22 102/63 94 Nasal Cannula 3.0 09/17/24 10:10 70 18 09/17/24 08:38 97 Nasal Cannula* 3 32 09/17/24 08:00 98.1 72 21 119/85 97 CPAP 09/17/24 06:47 64 20 09/17/24 06:46 64 18 N/Cannula Low lpm 3.0 32 DIAGNOSTICS / RADIOLOGY: REASON: ATRIAL FIBRILLATION WITH RAPID VENTRICULAR RESPONSE ORDERING PHYSICIAN: ANDREW HANDY MD PROCEDURE: ECHO CMP - ECHO 2-D COMPLETE APPROVED REPORT EXAM: Two-dimensional and M-mode echocardiogram with Doppler and color Doppler. INDICATION ICD: Atrial fibrillation with rapid ventricular response, status post TAVR 2D Dimensions RVDd 3.1 cm LVEF(%) 76.8 (>50%) LVED Vol(simp.) 58.3 mL IVSd 1.4 (0.7-1.1cm) FS(%) 45 % LVES Vol(simp.) 18.4 mL LVDd 4.4 (3.8-5.6cm) LA (2D) 5.1 (1.6-4.0cm) LVEF(%, simp.) 69 % PWd 1.0 (0.7-1.1cm) Ao Root(2D) 2.5 (2.0-3.7cm) LA ESV INDEX (BP) 46.92 mL/m2 LVDs 2.4 (2.5-4.0cm) LVOT diam 1.6 (1.8-2.4cm) IVC diam 2.2 cm Deformation Strain Apical 4 -18.0 % Apical 2 -17.0 % Apical 3 -19.0 % Global Strain -18.0 % M-Mode Dimensions EPSS 1.0 cm LA (MM) 4.3 (1.6-4.0cm) Ao Root(MM) 2.8 (2.0-3.7cm) Aortic Valve AoV Vmax 3.4 m/s Ao Peak GR 47.1 mmHg LVOT Vmax 1.7 m/s AoV VTI 0.7 m Ao Mean GR 24.1 mmHg LVOT VTI 0.40 m [place] (VMAX) 1.1 cm2 [place] (VTI) 1.1 cm2 Mitral Valve MV E Vmax 188.9 cm/s DECEL Time 342 ms MV Peak GR 20 mmHg MV A Vmax 100.0 cm/s MV Mean GR 8 mmHg E/A ratio 1.9 TDI E/E' Medial 37.8 E/E' Lateral 47.2 Medial E' Peak V 5.00 cm/s Lateral E' Peak V 4.00 cm/s Pulmonary Valve PV Vmax 1.1 m/s Tricuspid Valve TR Vmax 4.0 m/s RAP (EST) 15 mmHg RVSP 89.6 mmHg TR Peak GR 74.6 mmHg Left Ventricle The left ventricle is normal size. GLS -18.0%. There is normal LV segmental wall motion. Moderate concentric left ventricular hypertrophy. LVEF is >65%. Grade II diastolic dysfunction Right Ventricle The right ventricle is normal size. The right ventricular systolic function is normal. Atria The left atrium size is severely dilated. The right atrium is borderline dilated. Aortic Valve Status post TAVR. Trivial paravavular/perivalvular leak noted. No aortic regurgitation is present. Aortic prosthetic pk gradient of 47mmHg and mean gradient ofg 25mmHg. Mitral Valve The mitral valve is mildly thickened and appear domming. There is mitral annular calcification. There is mild mitral valve regurgitation noted. There is moderate mitral valve stenosis with mean gradient of 8mmHg. Tricuspid Valve The tricuspid valve appears normal. There is moderate tricuspid valve regurgitation noted. Moderate Pulmonary hypertension, PAP 52 mmHg. Pulmonic Valve The pulmonary valve is normal in structure. There is mild pulmonic valvular regurgitation. Great Vessels The aortic root is normal in size. IVC is dilated and collapses <50% with inspiration. Pericardium There is no pericardial effusion. Other Information Quality : Adequate Conclusion LVEF is >65%. Grade II diastolic dysfunction The left atrium size is severely dilated. Status post TAVR. Trivial paravavular/perivalvular leak noted. There is mild mitral valve regurgitation noted. There is moderate mitral valve stenosis with mean gradient of 8mmHg. Aortic prosthetic pk gradient of 47mmHg and mean gradient ofg 25mmHg. There is moderate tricuspid valve regurgitation noted. Moderate Pulmonary hypertension, PAP 52 mmHg. DICTATED BY: FANG JUSTIN MD DATE: 09/16/24 0808 . REASON: pna ORDERING PHYSICIAN: ARTURO FREGOSO PROCEDURE: CXR1VW - CHEST 1VW CHEST 1VW HISTORY: Pneumonia COMPARISON: None FINDINGS: A frontal projection of the chest was obtained. Mild right lower lung pulmonary infiltrates are seen. The heart is borderline enlarged. All the lines and tubes are again seen in place. No evidence of aortic calcification is seen. IMPRESSION: 1. Mild right lower lung pulmonary infiltrates. DICTATED BY: CIRA CORREA MD DATE: 09/14/24 1426 REASON: pna ORDERING PHYSICIAN: ARTURO FREGOSO PROCEDURE: CHEST WO - CT CHEST W/O CONTRAST CT CHEST WITHOUT CONTRAST INDICATION: Pneumonia TECHNIQUE: Routine axial images using 5 mm slice thickness were acquired from the lung apices to the bases without the administration of IV contrast.Coronal and sagittal reformatted images acquired for interpretation. CT was performed with one or more of the following dose reduction techniques: Automated exposure control, adjustment of the mA and/or kV according to patient size, or use of iterative reconstruction technique. COMPARISON: None FINDINGS: The heart size is normal. Coronary arterial wall calcific plaque noted. No pericardial effusion noted. . Mild calcific plaque is present along the aortic arch and thoracic aortic curtis without aneurysmal dilation. Valve stent contribute to mild streak artifact. The visualized great vessels and thoracic aorta are within normal limits. The trachea and airways are patent. Very subtle small patchy "ground-glass" opacities scattered throughout both upper lungs. No axillary, hilar, or mediastinal lymphadenopathy. Very trace right pleural fluid without pneumothorax. Spleen is enlarged. Gallbladder is absent. Residual pneumobilia. Visible osseous structures are intact. IMPRESSION: 1. Mild residual bilateral upper lung pneumonia and very trace right pleural fluid. 2. Splenomegaly. 3. Arteriosclerotic disease as described. DICTATED BY: LISSET GALVEZ MD DATE: 09/13/24 1559 REASON: pneumonia/ SOB ORDERING PHYSICIAN: BHUPENDRA ROSE MD PROCEDURE: CXR1VW - CHEST 1VW CHEST 1VW HISTORY: Pneumonia COMPARISON: None FINDINGS: A frontal projection of the chest was obtained. Mild bilateral pulmonary infiltrates are seen. The heart is borderline enlarged. Mild degenerative changes are seen. No evidence of aortic calcification is seen. IMPRESSION: 1. Mild bilateral pulmonary infiltrates. DICTATED BY: CIRA CORREA MD DATE: 09/12/24 1622 LABORATORY: [ ] Hematology Labs: Test 09/16/24 06:04 Range/Units White Blood Count 3.1 L 4.8-10.8 K/uL Red Blood Count 2.24 L 4.00-5.50 MIL/uL Hemoglobin 7.5 L 12.0-16.0 g/dL Hematocrit 23.1 L 36-48 % Mean Corpuscular Volume 103.1 H 79-99 fL Mean Corpuscular Hemoglobin 33.5 H 27.0-33.0 pg Mean Corpuscular Hemoglobin Concent 32.5 32.0-36.0 g/dL Red Cell Distribution Width 18.9 H 11.0-15.5 % Platelet Count 64 L 130-400 K/uL Mean Platelet Volume 9.8 7.5-10.5 fL Nucleated Red Blood Cells 0.0 0.0-0.19 % Chemistry Labs: Test 09/16/24 06:04 Range/Units Sodium Level 136 136-145 mmol/L Potassium Level 4.2 3.5-5.1 mmol/L Chloride Level 109 101-111 mmol/L Carbon Dioxide Level 20 L 21-32 mmol/L Blood Urea Nitrogen 29 H 7-18 mg/dL Creatinine 1.6 H 0.5-1.0 mg/dL Glomerular Filtration Rate Calc 34 >90 mL/min Random Glucose 90 70-105 mg/dL Total Calcium 8.0 L 8.5-10.1 mg/dL Magnesium Level 2.60 H 1.80-2.40 mg/dL Coagulation Labs: Test 09/16/24 17:38 Range/Units Prothrombin Time 13.1 H 9.6-11.6 SEC Prothromb Time International Ratio 1.26 H 0.85-1.15 Activated Partial Thromboplast Time 40.0 H 26.3-35.5 SEC ASSESSMENT: Acute on chronic renal failure Anemia Acute respiratory failure with hypoxia POA Sepsis secondary to viral syndrome influenza a POA Positive influenza a infection POA Viral syndrome POA Immunosuppression state on Prograf POA Hypercoagulable state secondary AFib t on Eliquis POA History liver transplant on immunosuppressive drugs prograf POA Moderate protein calorie malnutrition. POA Chronic heart failure unknown LV EF per patient Physical deconditioning given to dyspnea on exertion POA PLAN: Labs, diagnostic, radiologic exams reviewed and interpreted by myself and supervising physician. We have reviewed external records in detail Obtain FOBT, UA, urine electrolytes, urine creatinine, urine osmolality and complete renal ultrasound Require close monitoring of renal function and electrolytes Order CBC, CMP, uric acid, TSH and electrolytes in am Continue with antibiotics as per ID BiPAP as necessary, for respiratory distress Monitor blood pressure adjust medication doses as needed Avoid hypotensive episodes May use Dilaudid 0.5 mg IV every 6 hours as needed for severe pain Monitor blood sugars Strict intake, output, and daily weight should be monitored Please renally adjust medications Avoid nephrotoxic and nonsteroidal drugs Avoid contrast if possible Will continue to monitor renal function, anemia, electrolytes Treatment plan discussed with patient Questions were answered We have discussed with the other team physicians in detail about the care plan We will continue to monitor the patient closely Thank you for allowing us to participate in the care of this patient ATTESTATION BY PHYSICIAN I have seen and examined the patient. I reviewed the documentation, medical decision making, and treatment plan as noted by the mid-level provider above. I agree with the findings and plan of care. SHENG RASHID MD, ELIZABETH FNP Sep 17, 2024 14:36 SHENG RASHID MD Sep 17, 2024 22:33
--- NOTE | 2024-09-17 15:29 | HMCIMG ---
Exam Type: US RENAL SONOGRAM Clinical Information: Decreased renal function Comparison: None Findings: The kidneys are hyperechoic and atrophic consistent with renal parenchymal disease. There are no calculi. No hydronephrosis or calculi are seen. No renal masses are seen. There is no evidence of perinephric fluid on either side. No evidence of significant ureteral dilatation is seen. Simple cyst right kidney seen. The right kidney measures 9.6 x 4.4 cm. The left kidney measures 7.1 x 4.3 cm. The urinary bladder is normal. No bladder masses, stones, or wall thickening is seen. IMPRESSION: Hyperechoic atrophic kidneys consistent with renal parenchymal disease.
--- NOTE | 2024-09-17 21:49 | PN ---
[facility] PROGRESS NOTE Date Patient Seen: Sep 17, 2024 Time of Visit: 15:10 Supervising Physician: DR. CAMERON MONSALVE PROBLEM LIST: Acute on chronic hypoxemic respiratory failure, home O2 dependent Influenza A infection w superimposed Bacterial PNA Chronic congestive heart failure, unknown LVEF for patient Pancytopenia secondary to immunocompromised state from liver transplant History of liver transplant on tacrolimus Pulmonary hypertension History of aortic stenosis status post remote TAVR with bovine valve Paroxysmal atrial fibrillation on Eliquis INTERVAL HISTORY: Patient is seen and examined at the bedside , still on antibiotic therapy still on antibiotic , still on tamiflu, no fever, chills nausea still congested he was placed on loratidine , pending VQ scan . REVIEW OF SYSTEMS: 12 point ROS reviewed with patient. Pertinent positives mentioned above. Otherwise negative. PHYSICAL EXAM: GENERAL: alert, weak, awake oriented x 3 HEENT: EOMI, Sclera non icteric, moist mucosa NECK: Supple, no JVD, trachea midline LUNGS: tight air entry, dyspneic, tachypneic HEART: Regular rate and rhythm. Normal S1 and S2, without murmurs ABD: Abdomen soft, nontender. Bowel sounds present EXT: No clubbing cyanosis or edema NEURO: Alert and oriented to person, follows commands Vital Signs (last 8hr) Date Time Temp Pulse Resp B/P (MAP) Pulse Ox O2 Delivery O2 Flow Rate FiO2 09/17/24 20:00 98.2 76 22 119/60 91 Nasal Cannula 3.0 28 09/17/24 16:00 97.9 76 22 107/68 95 Nasal Cannula 3.0 LABS: Hematology Labs: Test 09/16/24 06:04 Range/Units White Blood Count 3.1 L 4.8-10.8 K/uL Red Blood Count 2.24 L 4.00-5.50 MIL/uL Hemoglobin 7.5 L 12.0-16.0 g/dL Hematocrit 23.1 L 36-48 % Mean Corpuscular Volume 103.1 H 79-99 fL Mean Corpuscular Hemoglobin 33.5 H 27.0-33.0 pg Mean Corpuscular Hemoglobin Concent 32.5 32.0-36.0 g/dL Red Cell Distribution Width 18.9 H 11.0-15.5 % Platelet Count 64 L 130-400 K/uL Mean Platelet Volume 9.8 7.5-10.5 fL Nucleated Red Blood Cells 0.0 0.0-0.19 % Chemistry Labs: Test 09/16/24 06:04 Range/Units Sodium Level 136 136-145 mmol/L Potassium Level 4.2 3.5-5.1 mmol/L Chloride Level 109 101-111 mmol/L Carbon Dioxide Level 20 L 21-32 mmol/L Blood Urea Nitrogen 29 H 7-18 mg/dL Creatinine 1.6 H 0.5-1.0 mg/dL Glomerular Filtration Rate Calc 34 >90 mL/min Random Glucose 90 70-105 mg/dL Total Calcium 8.0 L 8.5-10.1 mg/dL Magnesium Level 2.60 H 1.80-2.40 mg/dL Coagulation Labs: Test 09/16/24 17:38 Range/Units Prothrombin Time 13.1 H 9.6-11.6 SEC Prothromb Time International Ratio 1.26 H 0.85-1.15 Activated Partial Thromboplast Time 40.0 H 26.3-35.5 SEC DIAGNOSTICS / RADIOLOGY RESULTS: [ ] PLAN Pending VQ scan continue on antibiotic therapy continue on tamiflu NEURO: Minimize central acting medications as possible. Maintain fall precautions, adequate lighting during the day PULMONARY: Supplemental 02 as needed. Maintain aspiration precautions at all times Atrovent, pulmicort, mucomyst and CPT. Aggressive pulmonary toileting No steroids at this time CXR in AM CARDIOVASCULAR: Follow hemodynamics. Vital signs per facility protocol GI & NUTRITION: Continue with nutritional support. Continue stool softeners and laxatives as needed. KIDNEYS & ELECTROLYTES: Strict monitoring of intake, output and overall fluid balance. Avoid nephrotoxic medications to the extent possible. Medications to be dosed according to renal function. Monitor electrolytes and replace as needed ENDOCRINE: Maintain blood glucose between 100-180 at all times. Hypoglycemia protocol in place INFECTIOUS DISEASE: Trend temperature, WBC and procalcitonin level Follow cultures, deescalate antibiotics as soon as possible. Panculture if new onset fever ONCOLOGY/HEMATOLOGY/COAGULATION: Monitor for s/s of bleeding Monitor hemoglobin, coagulation studies as needed SKIN: Pressure ulcer prevention per facility protocol Specialty mattress ORTHO/REHAB: Continue PT/OT Prophylaxis: Continue GI and DVT prophylaxis Code Status: Full Resuscitation Disposition: TBD ATTESTATION BY PHYSICIAN Documentation assistance provided by a scribe, information recorded by the scribe was done at my direction and has been reviewed and validated by me." CAMERON MONSALVE MD I personally scribed for CAMERON MONSALVE MD ([email or web address]) on 09/17/24 at 21:49. Electronically submitted by Lizzie Cast ([id number]). CAMERON MONSALVE MD Sep 17, 2024 21:49
[2024-09-18] VITALS (14 sets, daily range): BP systolic 93–131; BP diastolic 54–75; PULSE 71–85; RESP 18–22; TEMP 97.5–98.6; O2SAT 90–99
[2024-09-18 06:11] LABS: BASOPHILS # (AUTO) 0.01 K/uL (0.00-0.20); BASOPHILS % (AUTO) 0.3 % (0.0-5.0); EOSINOPHILS # (AUTO) 0.07 K/uL (0.00-0.70); EOSINOPHILS % (AUTO) 1.8 % (0.0-8.0); HEMATOCRIT 22.7 % (36-48); IMMATURE GRANULOCYTE ABSOLUTE 0.03 K/uL (0-1); LYMPHOCYTES # (AUTO) 0.3 K/uL (1.0-4.8); LYMPHOCYTES % (AUTO) 7.4 % (21.0-51.0); MEAN CORPUSCULAR HEMOGLOBIN 33.2 pg (27.0-33.0); MEAN CORPUSCULAR HGB CONC 32.6 g/dL (32.0-36.0); MEAN CORPUSCULAR VOLUME 101.8 fL (79-99); MONOCYTES # (AUTO) 0.3 K/uL (0.1-1.0); MONOCYTES % (AUTO) 7.1 % (3.0-13.0); NEUTROPHILS # (AUTO) 3.1 K/uL (1.8-7.7); NEUTROPHILS % (AUTO) 82.6 % (40.0-77.0); PLATELET COUNT (AUTO) 80 K/uL (130-400); RED BLOOD CELL COUNT(AUTO) 2.23 MIL/uL (4.00-5.50); RED CELL DISTRIBUTION WIDTH 18.6 % (11.0-15.5); WHITE BLOOD COUNT (AUTO) 3.8 K/uL (4.8-10.8)
[2024-09-18 06:59] LABS: ALBUMIN 2.6 g/dL (3.5-5.0); BILIRUBIN,TOTAL 0.6 mg/dL (0.2-1.0); CREATININE 1.9 mg/dL (0.5-1.0); MAGNESIUM 2.5 mg/dL (1.80-2.40); PHOSPHORUS 3.3 mg/dL (2.5-4.9); POTASSIUM 4.8 mmol/L (3.5-5.1); THYROID STIMULATING HORMONE 2.4 uIU/mL (0.36-3.74); TOTAL PROTEIN, SERUM 5.7 g/dL (6.0-8.3); URIC ACID 4.7 mg/dL (2.6-7.2)
[2024-09-18 07:09] LABS: % IRON SATURATION 25.2 % (22-44)
--- NOTE | 2024-09-18 08:15 | HMCIMG ---
Pulmonary perfusion study HISTORY: hypoxia . COMPARISON: None TECHNIQUE: Perfusion scan was performed after IV injection of 5.0 mCi of Tc 99m MAA. FINDINGS: There is normal perfusion to both lungs. No wedge shaped or pleural-based defect identified IMPRESSION: NNormal lung perfusion study
--- NOTE | 2024-09-18 08:36 | PN ---
[facility] PROGRESS NOTE Date of Service: Sep 18, 2024 Time of Service: 08:34 SUBJECTIVE: [ ] This is a 51-year-old female that presents in ER with generalized buttock witnessed in fever and chills. Patient was found to have influenza a. She continues the need for oxygen we will have respiratory to titrate as tolerated. She uses CPAP overnight. Device from home. We will get Physical therapy. Continues empiric antibiotics 09/18/2024 today at bedside evaluation patient was found alert and oriented x3. Her vital signs were stable, afebrile, satting 93% on room 3 L nasal cannula, sinus rhythm. White count is 3.8, H&H 7.4/22.7, platelets 80, BUN is 34, creatinine 1.9. Blood cultures are negative. Nuclear med pulmonary lung scan showing normal lung perfusion study. Last night chest x-ray shows findings consistent with pneumonia. Continue CPT. Continue IV cefepime, doxycycline and fluconazole via PICC line at ID's direction. Home medications reviewed, continue tacrolimus. Continue guaifenesin. Stable from Cardiology standpoint, continue Eliquis and metoprolol succinate. Case management coordinating for SNF placement. REVIEW OF SYSTEMS A12 point ROS was obtained all relevant positive documented otherwise ROS negative PHYSICAL EXAM GENERAL APPEARANCE: The patient is awake, alert, on nasal cannula2 L. Appears acutely ill. NEUROLOGICAL: Cranial nerves II-XII grossly intact. Motor is 5/5 in bilateral upper and lower extremities proximal to distal. No sensory deficits. HEENT: Face is symmetric. Pupils are equal and reactive. Extraocular movements are intact. NECK: Supple. No JVD. No thyromegaly. No submental, submandibular, pre- /postauricular, occipital or supraclavicular lymphadenopathy. CHEST: Normal chest expansion. No Telemetry. LUNGS: Absence of any rales, ++ wheezing. CARDIOVASCULAR: Regular. S1 and S2 normal. No appreciable rubs, murmurs or gallops. ABDOMEN: Soft, nontender, and nondistended. There is no rebound, voluntary guarding, or rigidity. : Deferred. No Hodgson. EXTREMITIES: Non-edematous and not cyanotic. No clubbing. Good capillary refill. SKIN: No skin breakdown. Vital Signs (last 8hr) Date Time Temp Pulse Resp B/P (MAP) Pulse Ox O2 Delivery O2 Flow Rate FiO2 3/12/25 06:34 82 20 09/18/24 06:33 82 20 N/Cannula Low lpm 3.0 32 09/18/24 04:00 98.1 71 21 93/54 96 Nasal Cannula 4.0 32 LABS: Laboratory: Test 09/18/24 04:46 09/17/24 13:37 09/16/24 17:38 Range/Units White Blood Count 3.8 L 4.8-10.8 K/uL Red Blood Count 2.23 L 4.00-5.50 MIL/uL Hemoglobin 7.4 L 12.0-16.0 g/dL Hematocrit 22.7 L 36-48 % Mean Corpuscular Volume 101.8 H 79-99 fL Mean Corpuscular Hemoglobin 33.2 H 27.0-33.0 pg Mean Corpuscular Hemoglobin Concent 32.6 32.0-36.0 g/dL Red Cell Distribution Width 18.6 H 11.0-15.5 % Platelet Count 80 L 130-400 K/uL Mean Platelet Volume 10.4 7.5-10.5 fL Immature Granulocyte % (Auto) 0.8 0-1 % Neutrophils (%) (Auto) 82.6 H 40.0-77.0 % Lymphocytes (%) (Auto) 7.4 L 21.0-51.0 % Monocytes (%) (Auto) 7.1 3.0-13.0 % Eosinophils (%) (Auto) 1.8 0.0-8.0 % Basophils (%) (Auto) 0.3 0.0-5.0 % Neutrophils # (Auto) 3.1 1.8-7.7 K/uL Lymphocytes # (Auto) 0.3 L 1.0-4.8 K/uL Monocytes # (Auto) 0.3 0.1-1.0 K/uL Eosinophils # (Auto) 0.07 0.00-0.70 K/uL Basophils # (Auto) 0.01 0.00-0.20 K/uL Absolute Immature Granulocyte (auto 0.03 0-1 K/uL Nucleated Red Blood Cells 0.0 0.0-0.19 % Sodium Level 139 136-145 mmol/L Potassium Level 4.8 3.5-5.1 mmol/L Chloride Level 111 101-111 mmol/L Carbon Dioxide Level 18 L 21-32 mmol/L Blood Urea Nitrogen 34 H 7-18 mg/dL Creatinine 1.9 H 0.5-1.0 mg/dL Glomerular Filtration Rate Calc 28 >90 mL/min Random Glucose 80 70-105 mg/dL Uric Acid 4.7 2.6-7.2 mg/dL Total Calcium 8.0 L 8.5-10.1 mg/dL Phosphorus Level 3.3 2.5-4.9 mg/dL Magnesium Level 2.50 H 1.80-2.40 mg/dL Iron Level 29 L 50-170 mcg/dL Total Iron Binding Capacity 115 L 250-450 mcg/dL Percent Iron Saturation 25.2 22-44 % Ferritin 934 H 15-150 ng/mL Total Bilirubin 0.6 0.2-1.0 mg/dL Aspartate Amino Transf (AST/SGOT) 16 10-37 U/L Alanine Aminotransferase (ALT/SGPT) 10 L 12-78 U/L Alkaline Phosphatase 74 50-136 U/L Total Protein 5.7 L 6.0-8.3 g/dL Albumin 2.6 L 3.5-5.0 g/dL Thyroid Stimulating Hormone (TSH) 2.40 0.36-3.74 uIU/mL Blood Gas Specimen Type Arterial Arterial Blood pH 7.399 7.350-7.450 Arterial Blood Partial Pressure CO2 23 L 32-45 mmHg Arterial Blood Partial Pressure O2 76.8 L 83.0-108.0 mmHg Arterial Blood HCO3 14.1 L 21.0-28.0 mmol/L Arterial Blood Oxygen Saturation 95.7 94.0-98.0 % Arterial Blood Base Excess -8.5 L -2.0-3.0 mmol/L Blood Gas Temperature 37.0 35.5-37.0 CELSIUS Blood Gas Flow-by 3.00 0.00-15.00 L/min Blood Gas Vent Mode NC ROOM AIR FiO2 32.0 % Blood Gas Specimen Comment YULISA FREEDMAN RN Prothrombin Time 13.1 H 9.6-11.6 SEC Prothromb Time International Ratio 1.26 H 0.85-1.15 Activated Partial Thromboplast Time 40.0 H 26.3-35.5 SEC Current Medications Medications (Trade) Dose Ordered Sig/Sandy Route PRN Reason Start Time Stop Time Status Last Admin Dose Admin Acetaminophen (TYLenol 325MG TAB) 650 mg Q4H PRN PO TEMPERATURE GREATER THAN 101.5 09/12/24 10:00 09/12/24 12:37 DC Acetaminophen (TYLenol 325MG TAB) 650 mg Q4H PRN PO TEMPERATURE GREATER THAN 101.5 09/12/24 12:30 10/12/24 12:29 09/15/24 14:44 650 MG Acetaminophen (TYLenol 325MG TAB) 650 mg Q6H PRN PO MILD PAIN (1-3) 09/13/24 22:00 10/13/24 21:59 09/17/24 23:26 650 MG Albuterol (DUOneb) 1 UDVIAL [id number] IH 09/12/24 12:00 09/12/24 21:30 DC 09/12/24 19:00 1 UDVIAL Albuterol Sulfate (Proventil 0.083% 2.5mg/3ml) 2.5MG = 3ML [id number] IH 09/13/24 12:00 09/15/24 12:55 DC 09/15/24 11:37 2.5 MG Allopurinol (ZYLOprim 100MG) 100 mg DAILY PO 09/13/24 09:00 10/13/24 08:59 09/18/24 08:03 100 MG Apixaban (EliquIS) 5 mg BID PO 09/12/24 21:00 10/12/24 20:59 09/18/24 08:04 5 MG Azithromycin 250 ml @ 250 mls/hr Q24H IVPB 09/12/24 12:30 09/13/24 15:26 DC 09/13/24 12:27 250 MLS/HR Budesonide (Pulmicort 0.25mg/2ml) 0.25 mg BIDRESP IH 09/13/24 18:00 10/13/24 17:59 09/18/24 06:30 0.25 MG Cefepime HCl (MAXipime 1 GM vial) 1 gm Q24H IVPB 09/15/24 11:30 09/25/24 11:29 09/17/24 12:34 1 GM Doxycycline Hyclate 250 ml @ 125 mls/hr Q12H IV 09/12/24 12:30 09/22/24 12:29 09/17/24 23:25 125 MLS/HR Famotidine (Pepcid 20mg Tab) 20 mg DAILY PO 09/12/24 21:00 10/12/24 20:59 09/18/24 08:03 20 MG Fluconazole/ Sodium Chloride (DiFLUCan 200 MG/ NS 100 ML) 200 mg Q24H IV 09/14/24 16:00 10/14/24 15:59 09/17/24 16:13 200 MG Fluticasone Propionate (FLOnase 50 mcg/ spray 16g bottle) 2 SPRAYS DAILY EN 09/17/24 12:30 10/17/24 12:29 09/18/24 08:01 2 SPRAYS Folic Acid (FOLic ACID 1 MG TABLET) 1 mg DAILY PO 09/13/24 09:00 10/13/24 08:59 09/18/24 08:03 1 MG Guaifenesin/ Dextromethorphan (RobiTUSSin DM 200/20MG 10ML) 10 ml Q4H PO 09/12/24 12:00 09/14/24 20:31 DC 09/14/24 13:07 10 ML Guaifenesin/ Dextromethorphan (RobiTUSSin DM 200/20MG 10ML) 10 ml Q4H PRN PO COUGH 09/14/24 20:30 10/12/24 11:59 Home Med (Home Medication) Copper Gluconate (Copper... DAILY PO 09/13/24 09:00 10/13/24 08:59 09/17/24 08:40 1 EACH Home Med (Home Medication) Macitentan (Opsumit) 1 TAB DAILY PO 09/13/24 09:00 10/13/24 08:59 09/17/24 08:40 1 EACH Home Med (Home Medication) Tadalafil 20 MG DAILY PO 09/13/24 09:00 10/13/24 08:59 09/17/24 08:40 2 EACH Home Med (Home Medication) Tenofovir Disoproxil Fumar... DAILY PO 09/13/24 09:00 10/13/24 08:59 09/17/24 08:40 1 EACH Ipratropium [place] (AtrovENT UD) 0.5 MG [id number] IH 09/13/24 00:00 10/13/24 00:00 09/18/24 06:31 0.5 MG Loperamide HCl (Imodium) 2 mg Q6H PRN PO DIARRHEA 09/13/24 21:30 10/13/24 21:29 09/16/24 17:40 2 MG Loratadine (LORATAdine 10 mg) 10 mg DAILY PO 09/17/24 12:30 10/17/24 12:29 09/18/24 08:03 10 MG Magnesium Sulfate 50 ml @ 0 mls/hr PROTOCOL PRN IV low mag level 09/12/24 12:00 10/12/24 11:59 09/16/24 03:50 25 MLS/HR Metoprolol Succinate (TopROL XL) 12.5 mg HS PO 09/12/24 20:00 10/13/24 08:59 09/17/24 20:11 12.5 MG Metoprolol Succinate (TopROL XL) 12.5 mg HS PO 09/12/24 21:00 09/12/24 19:56 DC Metoprolol Succinate (TopROL XL) 25 mg DAILY PO 09/13/24 09:00 09/12/24 19:50 DC Nystatin (NYSTatin [id number] UNIT/ML 5ML UDCUP) 5 ml QID PO 09/14/24 17:00 10/14/24 16:59 09/17/24 16:13 5 ML Ondansetron HCl (zoFRAN 4MG INJ) 4 mg Q6H PRN IVP NAUSEA/VOMITING 09/12/24 10:00 10/12/24 09:59 09/16/24 10:43 4 MG Oseltamivir Phosphate (Tamiflu) 75 mg BID PO 09/12/24 21:00 09/12/24 12:02 DC Oseltamivir Phosphate (Tamiflu) 75 mg Q24H PO 09/12/24 13:00 09/17/24 12:59 DC 09/16/24 12:05 75 MG Pharmacy Profile Note (Pharmacy Communication) 1 each ONCE MISC 09/13/24 11:00 09/13/24 11:01 DC Potassium Chloride 100 ml @ 50 mls/hr AD PRN IV POTASSIUM PROTOCOL 09/12/24 12:00 10/12/24 11:59 Potassium Chloride 100 ml @ 100 mls/hr AD PRN IV POTASSIUM PROTOCOL 09/13/24 00:00 09/12/24 23:59 DC Potassium Chloride 100 ml @ 100 mls/hr AD PRN IV POTASSIUM PROTOCOL 09/13/24 00:00 10/13/24 00:00 Potassium Chloride (K-Dur 10meq Sr Tab) 10 meq AD PRN PO POTASSIUM PROTOCOL 09/13/24 11:00 10/13/24 00:00 09/15/24 21:58 10 MEQ Potassium Chloride (K-Dur/Klor-Con 20meq) 10 meq AD PRN PO POTASSIUM PROTOCOL 09/13/24 00:00 09/13/24 10:31 DC Potassium Chloride (KCl 10% Elixir 20meq/15ml) 10 meq AD PRN PO POTASSIUM PROTOCOL 09/13/24 00:00 10/13/24 00:00 Sertraline HCl (ZOloft 50 mg tab) 100 mg DAILY PO 09/13/24 09:00 10/13/24 08:59 09/18/24 08:03 100 MG Sodium Chloride 1,000 ml @ 75 mls/hr [id number] IV 09/12/24 10:00 09/13/24 00:28 DC 09/12/24 23:22 75 MLS/HR Spironolactone (Aldactone 25mg) 25 mg DAILY PO 09/13/24 09:00 10/13/24 08:59 09/18/24 08:03 25 MG Tacrolimus (ProgRAF 0.5MG) 0.5 mg HS PO 09/13/24 22:00 10/13/24 21:59 09/17/24 20:11 0.5 MG Tacrolimus (ProgRAF 1MG) 1 mg DAILY PO 09/13/24 09:00 10/13/24 08:59 09/18/24 08:02 1 MG Torsemide (Demadex) 20 mg BID PO 09/12/24 21:00 09/13/24 15:26 DC 09/13/24 08:42 20 MG Vancomycin HCl (Vancomycin 750mg) 750 mg Q24H IVPB 09/15/24 16:30 09/15/24 12:40 DC Vancomycin HCl (Vancomycin Protocol) 1 each AD IV 09/14/24 16:00 09/15/24 12:40 DC DIAGNOSTICS / RADIOLOGY: [ ] ASSESSMENT: Acute hypoxemic respiratory failure 2/2 acute on chronic diastolic HF/volume overload/acute pneumonitis/influenza a infection, POA Sepsis secondary to viral syndrome influenza a POA Positive influenza a infection POA Viral syndrome POA Immunosuppression state on Prograf POA Hypercoagulable state secondary AFib on Eliquis POA Anemia on chronic renal failure POA Acute on chronic renal failure POA History liver transplant on immunosuppressive drugs prograf POA Pancytopenia secondary to immunocompromised state from liver transplant Pulmonary hypertension Moderate protein calorie malnutrition. POA LVEF greater than 65% grade 2 diastolic dysfunction from 09/16/[address] Forrester Physical deconditioning given secondary to dyspnea on exertion POA PLAN: Continue admission in the Medical-surgical floor Continue droplet isolation precautions condition: Guarded Status: Full code Diet heart healthy, aspiration precautions Inspector Tester Sorter consulted, following recommendations Reviewed chest x-ray showing pneumonia Reviewed nuclear med scan showing normal lung perfusion Continue O2 supplementation to keep O2 saturations above 92%, currently satting 93% on 2 L nasal cannula. Please titrate down supplemental O2 to keep O2 sats >92%. DC if not needed. Antibiotics: Tamiflu 75 mg p.o. daily doxycycline IV cefepime IV Diflucan Atrovent, pulmicort, mucomyst and CPT. Aggressive pulmonary toileting Encouraged patient to use Impella while awake out of bed to chair as tolerated. Replace electrolytes as needed as per protocol to keep potassium above 4.0 magnesium 2.0. Home medications reviewed and reconciled Patient continues with Prograf1 mg p.o. daily Continue with Eliquis5 mg b.i.d.. Metoprolol succinate 12.5 at bedtime. Following cardiology's recommendations PRN Treatment - Add when necessary meds for nausea, vomiting, pain, constipation, insomnia. DVT/GI prophylaxis- Continue Eliquis and famotidine at current doses. Full CODE STATUS Disposition: Case management coordinating for SNF placement This document was generated in part using voice recognition software, occasional wrong word or sound alike substitutions may have occurred due to the inherent limitations of voice recognition software. Read the chart carefully and recognize using context, where the substitutions have occurred. Although every effort was made to edit the content, air director and typing errors may occur DUY BENTON Sep 18, 2024 08:35
--- NOTE | 2024-09-18 09:18 | HMCIMG ---
Exam Type: CHEST 1VW Clinical Information: HYPOXIA Comparison: None Findings: Right PICC line tip noted within the axillary region, consider advancing. Ill-defined infiltrates of the right lower lobe are seen consistent with pneumonia. The heart is normal in size. The bony and soft tissue structures show no worrisome pathology. IMPRESSION: Findings consistent with pneumonia. Follow-up is advised.
[2024-09-18 13:25] LABS: ABG OXYGEN SATURATION 50.5 % (94.0-98.0); BASE EXCESS,VENOUS BLOOD GAS -10.2 (-2.0-3.0); PCO2,VENOUS BLOOD GAS 31 (38-54); PO2,VENOUS BLOOD GAS 28.3 mmHg (23.0-48.0); VENT MODE, BG NC (ROOM AIR)
[2024-09-18] MEDS: IRON sUCROse COMPLEX 100 MG/5 ML VIAL IV SCH (13:30)
--- NOTE | 2024-09-18 14:00 | NUR ---
PHYSICIAN ROUNDING: Verbal order received: discontinue Venofer IV. Consult with Dr. Cabrera.
--- NOTE | 2024-09-18 15:53 | NUR ---
RETACRIT ONE TIME DOSE PENDING FROM PHARMACY New order received. Medication unavailable in stat safe. Pharmacy notified x 2. Pending delivery.
--- NOTE | 2024-09-18 15:57 | PN ---
NEPHROLOGY PROGRESS NOTE Date/Time Patient Seen: Sep 18, 2024 Reason for Consultation: 15:55 SUBJECTIVE: This is a 69-year-old female with a past medical history of hypertension, liver disease S/p liver transplant, chronic congestive heart failure with unknown LVEF, pulmonary hypertension, history of aortic stenosis S/p remote TAVR with a bovine valve, obesity, and paroxysmal atrial fibrillation on anticoagulation with Eliquis. She presented to the emergency with complaints of shortness of breath, cough and fever Positive for influenza a, she has completed Tamiflu treatment. CT of the chest showed bilateral infiltrates compatible with pneumonia She continues to be followed by pulmonology. She continues on antibiotics as per ID. Vancomycin has been discontinued Prograf has been restarted Case management coordinating SNF placement. She was noted to have worsening renal function and anemia. Renal function remained stable Electrolytes are stable. Hemoglobin is stable. Iron panel was noted She was seen in the medical floor, in no acute distress No family at the bedside Prognosis remains guarded REVIEW OF SYSTEMS: GENERAL: Positive for generalized weakness NEUROLOGIC: Negative for any blurry vision, blind spots, double vision, facial asymmetry, dysphagia, dysarthria, hemiparesis, hemisensory deficits, vertigo, ataxia. HEENT: Negative for any head trauma, neck trauma, neck stiffness, photophobia, phonophobia, sinusitis, rhinitis. CARDIAC: Negative for any chest pain, dyspnea on exertion, paroxysmal nocturnal dyspnea, peripheral edema. PULMONARY: Negative for any shortness of breath, wheezing, COPD, or TB exposure. GASTROINTESTINAL: Negative for any abdominal pain, nausea, vomiting, bright red blood per rectum, melena. GENITOURINARY: Negative for any dysuria, hematuria, incontinence. INTEGUMENTARY: Negative for any rashes, cuts, insect bites. RHEUMATOLOGIC: Negative for any joint pains, photosensitive rashes, history of vasculitis or kidney problems. HEMATOLOGIC: Negative for any abnormal bruising, frequent infections or bleeding. PHYSICAL EXAM: GENERAL: Alert and oriented x 3. No acute distress. Well-nourished. EYES: EOMI. Anicteric. HENT: Moist mucous membranes. No scleral icterus. No cervical lymphadenopathy. LUNGS: Clear to auscultation bilaterally. No accessory muscle use. CARDIOVASCULAR: Regular rate and rhythm. No murmur. No JVD. ABDOMEN: Soft, non-tender and non-distended. No palpable masses. EXTREMITIES: No edema. Non-tender. SKIN: No rashes or lesions. Warm. NEUROLOGIC: No focal neurological deficits. CN II-XII grossly intact, but not individually tested. PSYCHIATRIC: Cooperative. Appropriate mood and affect. LABORATORY: [ ] Hematology Labs: Test 09/18/24 04:46 Range/Units White Blood Count 3.8 L 4.8-10.8 K/uL Red Blood Count 2.23 L 4.00-5.50 MIL/uL Hemoglobin 7.4 L 12.0-16.0 g/dL Hematocrit 22.7 L 36-48 % Mean Corpuscular Volume 101.8 H 79-99 fL Mean Corpuscular Hemoglobin 33.2 H 27.0-33.0 pg Mean Corpuscular Hemoglobin Concent 32.6 32.0-36.0 g/dL Red Cell Distribution Width 18.6 H 11.0-15.5 % Platelet Count 80 L 130-400 K/uL Mean Platelet Volume 10.4 7.5-10.5 fL Immature Granulocyte % (Auto) 0.8 0-1 % Neutrophils (%) (Auto) 82.6 H 40.0-77.0 % Lymphocytes (%) (Auto) 7.4 L 21.0-51.0 % Monocytes (%) (Auto) 7.1 3.0-13.0 % Eosinophils (%) (Auto) 1.8 0.0-8.0 % Basophils (%) (Auto) 0.3 0.0-5.0 % Neutrophils # (Auto) 3.1 1.8-7.7 K/uL Lymphocytes # (Auto) 0.3 L 1.0-4.8 K/uL Monocytes # (Auto) 0.3 0.1-1.0 K/uL Eosinophils # (Auto) 0.07 0.00-0.70 K/uL Basophils # (Auto) 0.01 0.00-0.20 K/uL Absolute Immature Granulocyte (auto 0.03 0-1 K/uL Nucleated Red Blood Cells 0.0 0.0-0.19 % Chemistry Labs: Test 09/18/24 04:46 Range/Units Sodium Level 139 136-145 mmol/L Potassium Level 4.8 3.5-5.1 mmol/L Chloride Level 111 101-111 mmol/L Carbon Dioxide Level 18 L 21-32 mmol/L Blood Urea Nitrogen 34 H 7-18 mg/dL Creatinine 1.9 H 0.5-1.0 mg/dL Glomerular Filtration Rate Calc 28 >90 mL/min Random Glucose 80 70-105 mg/dL Uric Acid 4.7 2.6-7.2 mg/dL Total Calcium 8.0 L 8.5-10.1 mg/dL Phosphorus Level 3.3 2.5-4.9 mg/dL Magnesium Level 2.50 H 1.80-2.40 mg/dL Iron Level 29 L 50-170 mcg/dL Total Iron Binding Capacity 115 L 250-450 mcg/dL Percent Iron Saturation 25.2 22-44 % Ferritin 934 H 15-150 ng/mL Total Bilirubin 0.6 0.2-1.0 mg/dL Aspartate Amino Transf (AST/SGOT) 16 10-37 U/L Alanine Aminotransferase (ALT/SGPT) 10 L 12-78 U/L Alkaline Phosphatase 74 50-136 U/L Total Protein 5.7 L 6.0-8.3 g/dL Albumin 2.6 L 3.5-5.0 g/dL Thyroid Stimulating Hormone (TSH) 2.40 0.36-3.74 uIU/mL Coagulation Labs: Test 09/16/24 17:38 Range/Units Prothrombin Time 13.1 H 9.6-11.6 SEC Prothromb Time International Ratio 1.26 H 0.85-1.15 Activated Partial Thromboplast Time 40.0 H 26.3-35.5 SEC DIAGNOSTICS / RADIOLOGY: REASON: HYPOXIA ORDERING PHYSICIAN: MINDY ABRAMS OFFICE EXECUTIVE PROCEDURE: CXR1VW - CHEST 1VW Exam Type: CHEST 1VW Clinical Information: HYPOXIA Comparison: None Findings: Right PICC line tip noted within the axillary region, consider advancing. Ill-defined infiltrates of the right lower lobe are seen consistent with pneumonia. The heart is normal in size. The bony and soft tissue structures show no worrisome pathology. IMPRESSION: Findings consistent with pneumonia. Follow-up is advised. DICTATED BY: SEVERIANO JOHNSON MD DATE: 09/18/24 0914 REASON: hypoxia ORDERING PHYSICIAN: ARTURO FREGOSO PROCEDURE: PULM PERF - NM PULMONARY/LUNG PERFUSION Pulmonary perfusion study HISTORY: hypoxia . COMPARISON: None TECHNIQUE: Perfusion scan was performed after IV injection of 5.0 mCi of Tc 99m MAA. FINDINGS: There is normal perfusion to both lungs. No wedge shaped or pleural-based defect identified IMPRESSION: NNormal lung perfusion study DICTATED BY: SEVERIANO JOHNSON MD DATE: 09/18/24 0811 REASON: Decreased renal function ORDERING PHYSICIAN: DOMENIC CALIX PROCEDURE: RENAL - US RENAL SONOGRAM Exam Type: US RENAL SONOGRAM Clinical Information: Decreased renal function Comparison: None Findings: The kidneys are hyperechoic and atrophic consistent with renal parenchymal disease. There are no calculi. No hydronephrosis or calculi are seen. No renal masses are seen. There is no evidence of perinephric fluid on either side. No evidence of significant ureteral dilatation is seen. Simple cyst right kidney seen. The right kidney measures 9.6 x 4.4 cm. The left kidney measures 7.1 x 4.3 cm. The urinary bladder is normal. No bladder masses, stones, or wall thickening is seen. IMPRESSION: Hyperechoic atrophic kidneys consistent with renal parenchymal disease. DICTATED BY: SEVERIANO JOHNSON MD DATE: 09/17/24 1525 REASON: ATRIAL FIBRILLATION WITH RAPID VENTRICULAR RESPONSE ORDERING PHYSICIAN: ANDREW HANDY MD PROCEDURE: ECHO CMP - ECHO 2-D COMPLETE APPROVED REPORT EXAM: Two-dimensional and M-mode echocardiogram with Doppler and color Doppler. INDICATION ICD: Atrial fibrillation with rapid ventricular response, status post TAVR 2D Dimensions RVDd 3.1 cm LVEF(%) 76.8 (>50%) LVED Vol(simp.) 58.3 mL IVSd 1.4 (0.7-1.1cm) FS(%) 45 % LVES Vol(simp.) 18.4 mL LVDd 4.4 (3.8-5.6cm) LA (2D) 5.1 (1.6-4.0cm) LVEF(%, simp.) 69 % PWd 1.0 (0.7-1.1cm) Ao Root(2D) 2.5 (2.0-3.7cm) LA ESV INDEX (BP) 46.92 mL/m2 LVDs 2.4 (2.5-4.0cm) LVOT diam 1.6 (1.8-2.4cm) IVC diam 2.2 cm Deformation Strain Apical 4 -18.0 % Apical 2 -17.0 % Apical 3 -19.0 % Global Strain -18.0 % M-Mode Dimensions EPSS 1.0 cm LA (MM) 4.3 (1.6-4.0cm) Ao Root(MM) 2.8 (2.0-3.7cm) Aortic Valve AoV Vmax 3.4 m/s Ao Peak GR 47.1 mmHg LVOT Vmax 1.7 m/s AoV VTI 0.7 m Ao Mean GR 24.1 mmHg LVOT VTI 0.40 m [place] (VMAX) 1.1 cm2 [place] (VTI) 1.1 cm2 Mitral Valve MV E Vmax 188.9 cm/s DECEL Time 342 ms MV Peak GR 20 mmHg MV A Vmax 100.0 cm/s MV Mean GR 8 mmHg E/A ratio 1.9 TDI E/E' Medial 37.8 E/E' Lateral 47.2 Medial E' Peak V 5.00 cm/s Lateral E' Peak V 4.00 cm/s Pulmonary Valve PV Vmax 1.1 m/s Tricuspid Valve TR Vmax 4.0 m/s RAP (EST) 15 mmHg RVSP 89.6 mmHg TR Peak GR 74.6 mmHg Left Ventricle The left ventricle is normal size. GLS -18.0%. There is normal LV segmental wall motion. Moderate concentric left ventricular hypertrophy. LVEF is >65%. Grade II diastolic dysfunction Right Ventricle The right ventricle is normal size. The right ventricular systolic function is normal. Atria The left atrium size is severely dilated. The right atrium is borderline dilated. Aortic Valve Status post TAVR. Trivial paravavular/perivalvular leak noted. No aortic regurgitation is present. Aortic prosthetic pk gradient of 47mmHg and mean gradient ofg 25mmHg. Mitral Valve The mitral valve is mildly thickened and appear domming. There is mitral annular calcification. There is mild mitral valve regurgitation noted. There is moderate mitral valve stenosis with mean gradient of 8mmHg. Tricuspid Valve The tricuspid valve appears normal. There is moderate tricuspid valve regurgitation noted. Moderate Pulmonary hypertension, PAP 52 mmHg. Pulmonic Valve The pulmonary valve is normal in structure. There is mild pulmonic valvular regurgitation. Great Vessels The aortic root is normal in size. IVC is dilated and collapses <50% with inspiration. Pericardium There is no pericardial effusion. Other Information Quality : Adequate Conclusion LVEF is >65%. Grade II diastolic dysfunction The left atrium size is severely dilated. Status post TAVR. Trivial paravavular/perivalvular leak noted. There is mild mitral valve regurgitation noted. There is moderate mitral valve stenosis with mean gradient of 8mmHg. Aortic prosthetic pk gradient of 47mmHg and mean gradient ofg 25mmHg. There is moderate tricuspid valve regurgitation noted. Moderate Pulmonary hypertension, PAP 52 mmHg. DICTATED BY: FANG JUSTIN MD DATE: 09/16/24 08 . REASON: pna ORDERING PHYSICIAN: ARTURO FREGOSO PROCEDURE: CXR1VW - CHEST 1VW CHEST 1VW HISTORY: Pneumonia COMPARISON: None FINDINGS: A frontal projection of the chest was obtained. Mild right lower lung pulmonary infiltrates are seen. The heart is borderline enlarged. All the lines and tubes are again seen in place. No evidence of aortic calcification is seen. IMPRESSION: 1. Mild right lower lung pulmonary infiltrates. DICTATED BY: CIRA CORREA MD DATE: 09/14/24 1426 REASON: pna ORDERING PHYSICIAN: ARTURO FREGOSO PROCEDURE: CHEST WO - CT CHEST W/O CONTRAST CT CHEST WITHOUT CONTRAST INDICATION: Pneumonia TECHNIQUE: Routine axial images using 5 mm slice thickness were acquired from the lung apices to the bases without the administration of IV contrast.Coronal and sagittal reformatted images acquired for interpretation. CT was performed with one or more of the following dose reduction techniques: Automated exposure control, adjustment of the mA and/or kV according to patient size, or use of iterative reconstruction technique. COMPARISON: None FINDINGS: The heart size is normal. Coronary arterial wall calcific plaque noted. No pericardial effusion noted. . Mild calcific plaque is present along the aortic arch and thoracic aortic curtis without aneurysmal dilation. Valve stent contribute to mild streak artifact. The visualized great vessels and thoracic aorta are within normal limits. The trachea and airways are patent. Very subtle small patchy "ground-glass" opacities scattered throughout both upper lungs. No axillary, hilar, or mediastinal lymphadenopathy. Very trace right pleural fluid without pneumothorax. Spleen is enlarged. Gallbladder is absent. Residual pneumobilia. Visible osseous structures are intact. IMPRESSION: 1. Mild residual bilateral upper lung pneumonia and very trace right pleural fluid. 2. Splenomegaly. 3. Arteriosclerotic disease as described. DICTATED BY: LISSET GALVEZ MD DATE: 09/13/24 1559 REASON: pneumonia/ SOB ORDERING PHYSICIAN: BHUPENDRA ROSE MD PROCEDURE: CXR1VW - CHEST 1VW CHEST 1VW HISTORY: Pneumonia COMPARISON: None FINDINGS: A frontal projection of the chest was obtained. Mild bilateral pulmonary infiltrates are seen. The heart is borderline enlarged. Mild degenerative changes are seen. No evidence of aortic calcification is seen. IMPRESSION: 1. Mild bilateral pulmonary infiltrates. DICTATED BY: CIRA CORREA MD DATE: 09/12/24 1622 ASSESSMENT: Acute on chronic renal failure Anemia Acute respiratory failure with hypoxia POA Sepsis secondary to viral syndrome influenza a POA Positive influenza a infection POA Viral syndrome POA Immunosuppression state on Prograf POA Hypercoagulable state secondary AFib t on Eliquis POA History liver transplant on immunosuppressive drugs prograf POA Moderate protein calorie malnutrition. POA Chronic heart failure unknown LV EF per patient Physical deconditioning given to dyspnea on exertion POA PLAN: Labs, diagnostic, radiologic exams reviewed and interpreted by myself and supervising physician. We have reviewed external records in detail Start Epogen 33131 units subQ weekly Require close monitoring of renal function and electrolytes Order CBC, CMP, and electrolytes in am Continue with antibiotics as per ID BiPAP as necessary, for respiratory distress Monitor blood pressure adjust medication doses as needed Avoid hypotensive episodes May use Dilaudid 0.5 mg IV every 6 hours as needed for severe pain Monitor blood sugars Strict intake, output, and daily weight should be monitored Please renally adjust medications Avoid nephrotoxic and nonsteroidal drugs Avoid contrast if possible Will continue to monitor renal function, anemia, electrolytes Treatment plan discussed with patient Questions were answered We have discussed with the other team physicians in detail about the care plan We will continue to monitor the patient closely ATTESTATION BY PHYSICIAN I have seen and examined the patient. I reviewed the documentation, medical decision making, and treatment plan as noted by the mid-level provider above. I agree with the findings and plan of care. SHENG RASHID MD, [facility] Sep 18, 2024 15:57
--- NOTE | 2024-09-18 17:10 | PN ---
INFECTIOUS DISEASE PROGRESS NOTE Date of Service: Sep 18, 2024 SUBJECTIVE: This is 69-year-old female patient who was seen and examined at bedside in room 327. Patient is awake, alert and oriented x3. Patient is afebrile, temperature is 97.5. The hemoglobin is low at 7.4 and being started on Retacrit. Will continue on cefepime, fluconazole, and doxycycline. Patient has completed Tamiflu. Continues on oxygen support via nasal cannula 2 liters/minute. Patient has been referred to [facility] and [facility]hab and pending insurance authorization. We will continue to follow patient's care. PHYSICAL EXAM EYES: Anicteric. Pupils equal and reactive. HENT: No oral thrush seen, moist Oral mucosa. NECK: Supple, no JVD or thyromegaly. LUNGS: Good air entry. No rales, no rhonchi. Coughing episodes. Oxygen support via nasal cannula. CARDIOVASCULAR: S1, S2 regular. No murmur heard. ABDOMEN: Soft, non tender, bowel sounds present, no organomegaly CENTRAL NERVOUS SYSTEM: Awake, alert, oriented x 3. SKIN: No rashes, no swelling. LYMPHATICS: No peripheral lymphadenopathy. MUSCULOSKELETAL: No joint swelling, erythema or tenderness. EXTREMITIES: No cyanosis or clubbing. BACK: No deformity, no pressure ulcer. GENITOURINARY: No dysuria or hematuria. Vital Sign (Last 12 Hours) 09/18/24 09/18/24 09/18/24 09/18/24 06:33 06:34 08:00 11:08 Temp 97.5 Pulse 82 82 76 76 Resp 20 20 18 20 B/P (MAP) 110/64 Pulse Ox 90 O2 Delivery N/Cannula Low lpm Nasal Cannula N/Cannula Low lpm O2 Flow Rate 3.0 3.0 3.0 FiO2 32 32 09/18/24 09/18/24 09/18/24 11:09 11:33 16:00 Temp 97.5 97.7 Pulse 76 75 72 Resp 20 20 20 B/P (MAP) 120/68 114/60 Pulse Ox 93 97 O2 Delivery Nasal Cannula Nasal Cannula O2 Flow Rate 3.0 3.0 Intake & Output (last 24hrs) 09/17/24 09/17/24 09/18/24 15:00 23:00 07:00 Intake Total 250.0 ml Balance 250.0 ml LABS: Laboratory: Test 09/18/24 13:23 09/18/24 04:46 09/17/24 13:37 09/16/24 17:38 Range/Units Blood Gas Specimen Type Venous Arterial Blood Oxygen Saturation 50.5 L 94.0-98.0 % Venous Blood pH 7.310 L 7.320-7.430 Venous Blood pCO2 at Patient Temp 31 L 38-54 Venous Blood pO2 at Patient Temp 28.3 23.0-48.0 mmHg Venous Blood HCO3 15.0 L 22.0-29.0 Venous Blood Base Excess -10.2 L -2.0-3.0 Venous Blood Total Hemoglobin 8.8 L 12.0-16.0 Sodium (Blood Gas) 137 136-145 MMOL/L Bedside Potassium (Blood Gas) 4.4 3.4-4.5 MMOL/L Bedside Chloride (Blood Gas) 109 H 98-107 MMOL/L Bedside Glucose (Blood Gas) 83 65-95 MG/DL Bedside Ionized Calcium (Blood Gas) 1.21 1.15-1.33 MMOL/L Bedside Lactic Acid (Blood Gas) 0.57 0.36-0.75 MMOL/L Blood Gas Temperature 37.0 35.5-37.0 CELSIUS Blood Gas Flow-by 3.00 0.00-15.00 L/min Blood Gas Vent Mode NC ROOM AIR FiO2 32.0 % Blood Gas Specimen Comment WERNER PABON White Blood Count 3.8 L 4.8-10.8 K/uL Red Blood Count 2.23 L 4.00-5.50 MIL/uL Hemoglobin 7.4 L 12.0-16.0 g/dL Hematocrit 22.7 L 36-48 % Mean Corpuscular Volume 101.8 H 79-99 fL Mean Corpuscular Hemoglobin 33.2 H 27.0-33.0 pg Mean Corpuscular Hemoglobin Concent 32.6 32.0-36.0 g/dL Red Cell Distribution Width 18.6 H 11.0-15.5 % Platelet Count 80 L 130-400 K/uL Mean Platelet Volume 10.4 7.5-10.5 fL Immature Granulocyte % (Auto) 0.8 0-1 % Neutrophils (%) (Auto) 82.6 H 40.0-77.0 % Lymphocytes (%) (Auto) 7.4 L 21.0-51.0 % Monocytes (%) (Auto) 7.1 3.0-13.0 % Eosinophils (%) (Auto) 1.8 0.0-8.0 % Basophils (%) (Auto) 0.3 0.0-5.0 % Neutrophils # (Auto) 3.1 1.8-7.7 K/uL Lymphocytes # (Auto) 0.3 L 1.0-4.8 K/uL Monocytes # (Auto) 0.3 0.1-1.0 K/uL Eosinophils # (Auto) 0.07 0.00-0.70 K/uL Basophils # (Auto) 0.01 0.00-0.20 K/uL Absolute Immature Granulocyte (auto 0.03 0-1 K/uL Nucleated Red Blood Cells 0.0 0.0-0.19 % Sodium Level 139 136-145 mmol/L Potassium Level 4.8 3.5-5.1 mmol/L Chloride Level 111 101-111 mmol/L Carbon Dioxide Level 18 L 21-32 mmol/L Blood Urea Nitrogen 34 H 7-18 mg/dL Creatinine 1.9 H 0.5-1.0 mg/dL Glomerular Filtration Rate Calc 28 >90 mL/min Random Glucose 80 70-105 mg/dL Uric Acid 4.7 2.6-7.2 mg/dL Total Calcium 8.0 L 8.5-10.1 mg/dL Phosphorus Level 3.3 2.5-4.9 mg/dL Magnesium Level 2.50 H 1.80-2.40 mg/dL Iron Level 29 L 50-170 mcg/dL Total Iron Binding Capacity 115 L 250-450 mcg/dL Percent Iron Saturation 25.2 22-44 % Ferritin 934 H 15-150 ng/mL Total Bilirubin 0.6 0.2-1.0 mg/dL Aspartate Amino Transf (AST/SGOT) 16 10-37 U/L Alanine Aminotransferase (ALT/SGPT) 10 L 12-78 U/L Alkaline Phosphatase 74 50-136 U/L Total Protein 5.7 L 6.0-8.3 g/dL Albumin 2.6 L 3.5-5.0 g/dL Thyroid Stimulating Hormone (TSH) 2.40 0.36-3.74 uIU/mL Arterial Blood pH 7.399 7.350-7.450 Arterial Blood Partial Pressure CO2 23 L 32-45 mmHg Arterial Blood Partial Pressure O2 76.8 L 83.0-108.0 mmHg Arterial Blood HCO3 14.1 L 21.0-28.0 mmol/L Arterial Blood Base Excess -8.5 L -2.0-3.0 mmol/L Prothrombin Time 13.1 H 9.6-11.6 SEC Prothromb Time International Ratio 1.26 H 0.85-1.15 Activated Partial Thromboplast Time 40.0 H 26.3-35.5 SEC ASSESSMENT: Multifocal pneumonia. Influenza Viral infection type A. Sepsis. History of liver transplant. Underlying immunosuppression. History of pulmonary hypertension. Acute renal failure. Anemia. PLAN: Continue on cefepime. Continue on fluconazole. Continue on doxycycline. Completed Tamiflu. Continue GI prophylaxis. Continue bronchodilators. Continue oxygen support. Patient has been referred to [place] [facility] and pending insurance authorization. This case was reviewed and discussed with my supervising physician and the above assessment and plan was formulated and agreed upon. ATTESTATION BY PHYSICIAN I have seen and examined the patient. I reviewed the documentation, medical decision making, and treatment plan as noted by the mid-level provider above. I agree with the findings and plan of care. BRIDGER DREW MD, [facility] [employer] Sep 18, 2024 17:09
[2024-09-18] MEDS: EPOETIN ALFA-EPBX (NON-ESRD) 10,000 UNIT/ML VIAL SQ ONE (18:03)
[2024-09-18] MEDS: guaiFENesin-DM 200/20MG 10ML PO PRN (18:04)
--- NOTE | 2024-09-18 21:17 | PN ---
[facility] PROGRESS NOTE Date Patient Seen: Sep 18, 2024 Time of Visit: :16:22 Supervising Physician: DR. NIR MELÉNDEZ PROBLEM LIST: Non gap metabolic acidosis Not present on admission Acute kidney insufficiency Acute on chronic hypoxemic respiratory failure, home O2 dependent Influenza A infection w superimposed Bacterial PNA Chronic congestive heart failure, LVEF 65% Pancytopenia secondary to immunocompromised state from liver transplant History of liver transplant on tacrolimus Pulmonary hypertension History of aortic stenosis status post remote TAVR with bovine valve Paroxysmal atrial fibrillation on Eliquis INTERVAL HISTORY: Patient is awake, alert, still on oxygen support via nasal cannula noted with elevated creatinine therefore plan is to discontinue Torsemide, Ct of chest reviewed ground glass and bilateral infiltrates noted, patient with thrombocytopenia on eliquis with high risk for bleeding, patient aware of this, she states feeling better, plan is to continue weaning from oxygen. REVIEW OF SYSTEMS: 12 point ROS reviewed with patient. Pertinent positives mentioned above. Otherwise negative. PHYSICAL EXAM: GENERAL: alert, weak, awake oriented x 3 HEENT: EOMI, Sclera non icteric, moist mucosa NECK: Supple, no JVD, trachea midline LUNGS: tight air entry, dyspneic, tachypneic HEART: Regular rate and rhythm. Normal S1 and S2, without murmurs ABD: Abdomen soft, nontender. Bowel sounds present EXT: No clubbing cyanosis or edema NEURO: Alert and oriented to person, follows commands Vital Signs (last 8hr) Date Time Temp Pulse Resp B/P (MAP) Pulse Ox O2 Delivery O2 Flow Rate FiO2 09/18/24 19:35 73 20 09/18/24 19:34 74 20 N/Cannula Low lpm 3.0 32 09/18/24 16:00 97.7 72 20 114/60 97 Nasal Cannula 3.0 LABS: Hematology Labs: Test 09/18/24 04:46 Range/Units White Blood Count 3.8 L 4.8-10.8 K/uL Red Blood Count 2.23 L 4.00-5.50 MIL/uL Hemoglobin 7.4 L 12.0-16.0 g/dL Hematocrit 22.7 L 36-48 % Mean Corpuscular Volume 101.8 H 79-99 fL Mean Corpuscular Hemoglobin 33.2 H 27.0-33.0 pg Mean Corpuscular Hemoglobin Concent 32.6 32.0-36.0 g/dL Red Cell Distribution Width 18.6 H 11.0-15.5 % Platelet Count 80 L 130-400 K/uL Mean Platelet Volume 10.4 7.5-10.5 fL Immature Granulocyte % (Auto) 0.8 0-1 % Neutrophils (%) (Auto) 82.6 H 40.0-77.0 % Lymphocytes (%) (Auto) 7.4 L 21.0-51.0 % Monocytes (%) (Auto) 7.1 3.0-13.0 % Eosinophils (%) (Auto) 1.8 0.0-8.0 % Basophils (%) (Auto) 0.3 0.0-5.0 % Neutrophils # (Auto) 3.1 1.8-7.7 K/uL Lymphocytes # (Auto) 0.3 L 1.0-4.8 K/uL Monocytes # (Auto) 0.3 0.1-1.0 K/uL Eosinophils # (Auto) 0.07 0.00-0.70 K/uL Basophils # (Auto) 0.01 0.00-0.20 K/uL Absolute Immature Granulocyte (auto 0.03 0-1 K/uL Nucleated Red Blood Cells 0.0 0.0-0.19 % Chemistry Labs: Test 09/18/24 04:46 Range/Units Sodium Level 139 136-145 mmol/L Potassium Level 4.8 3.5-5.1 mmol/L Chloride Level 111 101-111 mmol/L Carbon Dioxide Level 18 L 21-32 mmol/L Blood Urea Nitrogen 34 H 7-18 mg/dL Creatinine 1.9 H 0.5-1.0 mg/dL Glomerular Filtration Rate Calc 28 >90 mL/min Random Glucose 80 70-105 mg/dL Uric Acid 4.7 2.6-7.2 mg/dL Total Calcium 8.0 L 8.5-10.1 mg/dL Phosphorus Level 3.3 2.5-4.9 mg/dL Magnesium Level 2.50 H 1.80-2.40 mg/dL Iron Level 29 L 50-170 mcg/dL Total Iron Binding Capacity 115 L 250-450 mcg/dL Percent Iron Saturation 25.2 22-44 % Ferritin 934 H 15-150 ng/mL Total Bilirubin 0.6 0.2-1.0 mg/dL Aspartate Amino Transf (AST/SGOT) 16 10-37 U/L Alanine Aminotransferase (ALT/SGPT) 10 L 12-78 U/L Alkaline Phosphatase 74 50-136 U/L Total Protein 5.7 L 6.0-8.3 g/dL Albumin 2.6 L 3.5-5.0 g/dL Thyroid Stimulating Hormone (TSH) 2.40 0.36-3.74 uIU/mL DIAGNOSTICS / RADIOLOGY RESULTS: [ ] PLAN Discontinue Torsemide Monitor kidney function monitor for any signs of bleeding NEURO: Minimize central acting medications as possible. Maintain fall precautions, adequate lighting during the day PULMONARY: Supplemental 02 as needed. Maintain aspiration precautions at all times Atrovent, pulmicort, mucomyst and CPT. Aggressive pulmonary toileting No steroids at this time CXR in AM CARDIOVASCULAR: Follow hemodynamics. Vital signs per facility protocol GI & NUTRITION: Continue with nutritional support. Continue stool softeners and laxatives as needed. KIDNEYS & ELECTROLYTES: Strict monitoring of intake, output and overall fluid balance. Avoid nephrotoxic medications to the extent possible. Medications to be dosed according to renal function. Monitor electrolytes and replace as needed ENDOCRINE: Maintain blood glucose between 100-180 at all times. Hypoglycemia protocol in place INFECTIOUS DISEASE: Trend temperature, WBC and procalcitonin level Follow cultures, deescalate antibiotics as soon as possible. Panculture if new onset fever ONCOLOGY/HEMATOLOGY/COAGULATION: Monitor for s/s of bleeding Monitor hemoglobin, coagulation studies as needed SKIN: Pressure ulcer prevention per facility protocol Specialty mattress ORTHO/REHAB: Continue PT/OT Prophylaxis: Continue GI and DVT prophylaxis Code Status: Full Resuscitation Disposition: TBD Care patient spent time exceeds more than 35 minutes ATTESTATION BY PHYSICIAN Documentation assistance provided by a scribe, information recorded by the scribe was done at my direction and has been reviewed and validated by me." NIR MELÉNDEZ MD I personally scribed for NIR MELÉNDEZ MD ([email or web address]) on 09/18/24 at 21:17. Electronically submitted by Lizzie Cast ([id number]). I personally scribed for NIR MELÉNDEZ MD ([email or web address]) on 09/18/24 at 21:24. Electronically submitted by Lizzie Cast ([id number]). NIR MELÉNDEZ MD Sep 18, 2024 21:17
[2024-09-19] VITALS (13 sets, daily range): BP systolic 113–140; BP diastolic 61–92; PULSE 66–83; RESP 18–32; TEMP 97.9–98.7; O2SAT 90–99
[2024-09-19 08:20] LABS: EOSINOPHILS # (AUTO) 0.09 K/uL (0.00-0.70); EOSINOPHILS % (AUTO) 2.4 % (0.0-8.0); HEMATOCRIT 24.2 % (36-48); IMMATURE GRANULOCYTE ABSOLUTE 0.03 K/uL (0-1); LYMPHOCYTES # (AUTO) 0.2 K/uL (1.0-4.8); LYMPHOCYTES % (AUTO) 6.1 % (21.0-51.0); MEAN CORPUSCULAR HEMOGLOBIN 32.8 pg (27.0-33.0); MEAN CORPUSCULAR HGB CONC 32.6 g/dL (32.0-36.0); MEAN CORPUSCULAR VOLUME 100.4 fL (79-99); MONOCYTES # (AUTO) 0.3 K/uL (0.1-1.0); MONOCYTES % (AUTO) 7.1 % (3.0-13.0); NEUTROPHILS # (AUTO) 3.2 K/uL (1.8-7.7); NEUTROPHILS % (AUTO) 83.6 % (40.0-77.0); PLATELET COUNT (AUTO) 79 K/uL (130-400); RED BLOOD CELL COUNT(AUTO) 2.41 MIL/uL (4.00-5.50); RED CELL DISTRIBUTION WIDTH 18.6 % (11.0-15.5); WHITE BLOOD COUNT (AUTO) 3.8 K/uL (4.8-10.8)
[2024-09-19 08:35] LABS: ALBUMIN 2.8 g/dL (3.5-5.0); BILIRUBIN,TOTAL 0.7 mg/dL (0.2-1.0); CREATININE 1.9 mg/dL (0.5-1.0); PHOSPHORUS 3.3 mg/dL (2.5-4.9); POTASSIUM 4.7 mmol/L (3.5-5.1); TOTAL PROTEIN, SERUM 6.1 g/dL (6.0-8.3)
--- NOTE | 2024-09-19 10:11 | DS ---
Discharge Summary Hospital Course Summary: This is a 51-year-old female that presents in ER with generalized buttock witnessed in fever and chills. Patient was found to have influenza a. She continues the need for oxygen we will have respiratory to titrate as tolerated. She uses CPAP overnight. Device from home. We will get Physical therapy. Continues empiric antibiotics 09/18/2024 at bedside evaluation patient was found alert and oriented x3. Her vital signs were stable, afebrile, satting 93% on room 3 L nasal cannula, sinus rhythm. White count is 3.8, H&H 7.4/22.7, platelets 80, BUN is 34, creatinine 1.9. Blood cultures are negative. Nuclear med pulmonary lung scan showing normal lung perfusion study. Last night chest x-ray shows findings consistent with pneumonia. Continue CPT. Continue IV cefepime, doxycycline and fluconazole via PICC line at ID's direction. Home medications reviewed, continue tacrolimus. Continue guaifenesin. Stable from Cardiology standpoint, continue Eliquis and metoprolol succinate. Case management coordinating for SNF placement. 09/19/2024: Patient was apparently accepted to SNF yesterday. Patient was medically stable for discharge. Propagator Laborer Dr. Avalos re-evaluated patient yesterday and recommended to discontinue torsemide, continue to monitor kidney function and monitor for signs of bleeding. Patient with home O2 history, progressive care unit registered nurse recommended to continue to wean oxygen down to her baseline. Vital signs this morning are stable, afebrile, satting 97% on 3 L nasal cannula. CBC is stable, white count 3.8, H&H 7.9/21.2, platelets 79, renal indices remain about the same with BUN at 34, creatinine 1.9. No Tracolimus levels. Primary nurse will notify accepting nurse for Tracolimus levels results check. Patient to continue IV antibiotics and fluconazole via PICC line at ID direction. From medical standpoint patient is stable and cleared for discharge to [facility] nursing [facility] re[facility]. Instructor Ballroom Dancing(s): Resp Ther Dr. Caraballo Propagator Laborer Dr. Cancino Hematology Dr. Cabrera Nephrology Dr. Caal Infectious disease specialist Dr. Delroy Dillard Assessment/Plan: ASSESSMENT: Acute hypoxemic respiratory failure 2/2 acute on chronic diastolic HF/volume overload/acute pneumonitis/influenza a infection, POA improving Sepsis secondary to viral syndrome influenza a POA Positive influenza a infection POA Viral syndrome POA Immunosuppression state on Prograf POA Hypercoagulable state secondary AFib on Eliquis POA Anemia on chronic renal failure POA Acute on chronic renal failure POA History liver transplant on immunosuppressive drugs prograf POA Pancytopenia secondary to immunocompromised state from liver transplant Pulmonary hypertension Moderate protein calorie malnutrition. POA LVEF greater than 65% grade 2 diastolic dysfunction from 09/16/[address] Forrester Physical deconditioning given secondary to dyspnea on exertion POA PLAN: Accepted to [facility], medically cleared for discharge Continue droplet isolation precautions condition: Guarded Status: Full code Diet heart healthy, aspiration precautions Propagator Laborer consulted, following recommendations Reviewed chest x-ray showing pneumonia Reviewed nuclear med scan showing normal lung perfusion Continue O2 supplementation to keep O2 saturations above 92%, currently satting 93% on 2 L nasal cannula. Please titrate down supplemental O2 to keep O2 sats >92%. DC if not needed. Continue Tamiflu 75 mg p.o. daily doxycycline IV cefepime IV Diflucan Dr. Dillard for antimicrobial stewardship. Pending Tracolimus levels. PICC line Atrovent, pulmicort, mucomyst and CPT. Aggressive pulmonary toileting Encouraged patient to use Impella while awake out of bed to chair as tolerated. Replace electrolytes as needed as per protocol to keep potassium above 4.0 magnesium 2.0. Home medications reviewed and reconciled Patient continues with Prograf1 mg p.o. daily Continue with Eliquis5 mg b.i.d.. Metoprolol succinate 12.5 at bedtime. Following cardiology's recommendations PRN Treatment - Add when necessary meds for nausea, vomiting, pain, constipation, insomnia. DVT/GI prophylaxis- Continue Eliquis and famotidine at current doses. Full CODE STATUS Disposition: Case management coordinating for SNF placement This document was generated in part using voice recognition software, occasional wrong word or sound alike substitutions may have occurred due to the inherent limitations of voice recognition software. Read the chart carefully and recognize using context, where the substitutions have occurred. Although every effort was made to edit the content, application release manager and typing errors may occur Discharge Instructions: Medically stable and cleared for discharge to [facility]. Continue current medications. Follow up with pulmonology in one week for continued evaluation. Follow up with dray driver in one week. Follow up with infectious disease specialist in one week. This case was discussed with Dr. Baltazar and above plan was formulated Home Medications: Reported Medications Tacrolimus (Tacrolimus Xl) 0.5 Mg Cap.er.24h, 0.5 MG PO HS, CAPSULE. 09/12/24 Folic Acid (Folic Acid) 0.8 Mg Capsule, 1 CAP PO DAILY for 30 Days, #30 CAP 0 Refills 09/12/24 Prednisone (Prednisone) 5 Mg Tablet, 1 TAB PO DAILY for 30 Days, #30 TAB 0 Refills 09/12/24 Sertraline HCl (Sertraline HCl) 100 Mg Tablet, 1 TAB PO HS for 30 Days, #30 TAB 0 Refills 09/12/24 Allopurinol (Allopurinol) 100 Mg Tablet, 1 TAB PO DAILY for 30 Days, #30 TAB 0 Refills 09/12/24 Apixaban (Eliquis) 5 Mg Tablet, 1 TAB PO BID for 30 Days, #60 TAB 0 Refills 09/12/24 Tadalafil (Tadalafil) 20 Mg Tablet, 20 MG PO DAILY, TAB 09/12/24 Macitentan (Opsumit) 10 Mg Tablet, 1 TAB PO DAILY for 30 Days, #30 TAB 0 Refills 09/12/24 Dicyclomine HCl (Dicyclomine HCl) 10 Mg Capsule, 20 MG PO Q4HPRN PRN for DIARRHEA, CAP 09/12/24 Dicyclomine HCl (Dicyclomine HCl) 10 Mg Capsule, 1 CAP PO Q6HPRN PRN for irritable bowel symptoms for 25 Days, #100 CAP 0 Refills 09/12/24 Loperamide HCl (Loperamide) 2 Mg Capsule, 2 CAP PO Q6H for loose stool for 5 Days, #40 CAP 0 Refills 09/12/24 Pantoprazole Sodium (Pantoprazole Sodium) 40 Mg Tablet.dr, 1 TAB PO DAILY for 30 Days, #30 TAB 0 Refills 09/12/24 Metoprolol Succinate (Metoprolol Succinate) 25 Mg Tab.er.24h, 0.5 TAB PO HS for 30 Days, #30 TAB 0 Refills 09/12/24 Spironolactone (Spironolactone) 25 Mg Tablet, 1 TAB PO DAILY for 30 Days, #30 TAB 0 Refills 09/12/24 Tenofovir Disoproxil Fumarate (Viread) 300 Mg Tablet, 1 TAB PO DAILY for 30 Days, #30 TAB 0 Refills 09/12/24 Ondansetron (Ondansetron Odt) 4 Mg Tab.rapdis, 1 TAB PO Q6HPRN PRN for nausea/vomiting for 4 Days, #16 TAB 0 Refills 09/12/24 Torsemide (Torsemide) 20 Mg Tablet, 1 TAB PO BID for 30 Days, #30 TAB 0 Refills 09/12/24 Copper Gluconate (Copper) 2 Mg Capsule, 2 MG PO DAILY, CAP 09/12/24 Empagliflozin (Jardiance) 10 Mg Tablet, 1 TAB PO ACBKFST for 30 Days, #30 TAB 0 Refills 09/12/24 Tacrolimus (Tacrolimus) 1 Mg Capsule, 1 CAP PO DAILY for 30 Days, #60 CAP 0 Refills 09/12/24 Time spent arranging discharge: 31-60 minutes DUY BENTON Sep 19, 2024 10:10
--- NOTE | 2024-09-19 13:15 | PN ---
NEPHROLOGY PROGRESS NOTE Date/Time Patient Seen: Sep 19, 2024 SUBJECTIVE: This is a 69-year-old female with a past medical history of hypertension, liver disease S/p liver transplant, chronic congestive heart failure with unknown LVEF, pulmonary hypertension, history of aortic stenosis S/p remote TAVR with a bovine valve, obesity, and paroxysmal atrial fibrillation on anticoagulation with Eliquis. She presented to the emergency with complaints of shortness of breath, cough and fever Positive for influenza a, she has completed Tamiflu treatment. CT of the chest showed bilateral infiltrates compatible with pneumonia She continues to be followed by pulmonology. She continues on antibiotics as per ID. Vancomycin has been discontinued Prograf has been restarted Case management coordinating SNF placement. She was noted to have worsening renal function and anemia. Renal function has remained stable Electrolytes are stable. Hemoglobin is stable. Iron panel was noted She was seen in the medical floor,complaining of shortness of breath and generalized weakness No family at the bedside Prognosis remains guarded REVIEW OF SYSTEMS: GENERAL: Positive for generalized weakness NEUROLOGIC: Negative for any blurry vision, blind spots, double vision, facial asymmetry, dysphagia, dysarthria, hemiparesis, hemisensory deficits, vertigo, ataxia. HEENT: Negative for any head trauma, neck trauma, neck stiffness, photophobia, phonophobia, sinusitis, rhinitis. CARDIAC: Negative for any chest pain, dyspnea on exertion, paroxysmal nocturnal dyspnea, peripheral edema. PULMONARY: Negative for any shortness of breath, wheezing, COPD, or TB exposure. GASTROINTESTINAL: Negative for any abdominal pain, nausea, vomiting, bright red blood per rectum, melena. GENITOURINARY: Negative for any dysuria, hematuria, incontinence. INTEGUMENTARY: Negative for any rashes, cuts, insect bites. RHEUMATOLOGIC: Negative for any joint pains, photosensitive rashes, history of vasculitis or kidney problems. HEMATOLOGIC: Negative for any abnormal bruising, frequent infections or bleeding. PHYSICAL EXAM: GENERAL: Alert and oriented x 3. No acute distress. Well-nourished. EYES: EOMI. Anicteric. HENT: Moist mucous membranes. No scleral icterus. No cervical lymphadenopathy. LUNGS: Clear to auscultation bilaterally. No accessory muscle use. CARDIOVASCULAR: Regular rate and rhythm. No murmur. No JVD. ABDOMEN: Soft, non-tender and non-distended. No palpable masses. EXTREMITIES: No edema. Non-tender. SKIN: No rashes or lesions. Warm. NEUROLOGIC: No focal neurological deficits. CN II-XII grossly intact, but not individually tested. PSYCHIATRIC: Cooperative. Appropriate mood and affect. LABORATORY: [ ] Hematology Labs: Test 09/19/24 08:14 Range/Units White Blood Count 3.8 L 4.8-10.8 K/uL Red Blood Count 2.41 L 4.00-5.50 MIL/uL Hemoglobin 7.9 L 12.0-16.0 g/dL Hematocrit 24.2 L 36-48 % Mean Corpuscular Volume 100.4 H 79-99 fL Mean Corpuscular Hemoglobin 32.8 27.0-33.0 pg Mean Corpuscular Hemoglobin Concent 32.6 32.0-36.0 g/dL Red Cell Distribution Width 18.6 H 11.0-15.5 % Platelet Count 79 L 130-400 K/uL Mean Platelet Volume 9.9 7.5-10.5 fL Immature Granulocyte % (Auto) 0.8 0-1 % Neutrophils (%) (Auto) 83.6 H 40.0-77.0 % Lymphocytes (%) (Auto) 6.1 L 21.0-51.0 % Monocytes (%) (Auto) 7.1 3.0-13.0 % Eosinophils (%) (Auto) 2.4 0.0-8.0 % Basophils (%) (Auto) 0.0 0.0-5.0 % Neutrophils # (Auto) 3.2 1.8-7.7 K/uL Lymphocytes # (Auto) 0.2 L 1.0-4.8 K/uL Monocytes # (Auto) 0.3 0.1-1.0 K/uL Eosinophils # (Auto) 0.09 0.00-0.70 K/uL Basophils # (Auto) 0.00 0.00-0.20 K/uL Absolute Immature Granulocyte (auto 0.03 0-1 K/uL Nucleated Red Blood Cells 0.0 0.0-0.19 % Chemistry Labs: Test 09/19/24 08:14 09/18/24 04:46 Range/Units Sodium Level 136 136-145 mmol/L Potassium Level 4.7 3.5-5.1 mmol/L Chloride Level 109 101-111 mmol/L Carbon Dioxide Level 19 L 21-32 mmol/L Blood Urea Nitrogen 34 H 7-18 mg/dL Creatinine 1.9 H 0.5-1.0 mg/dL Glomerular Filtration Rate Calc 28 >90 mL/min Random Glucose 82 70-105 mg/dL Total Calcium 8.1 L 8.5-10.1 mg/dL Phosphorus Level 3.3 2.5-4.9 mg/dL Total Bilirubin 0.7 0.2-1.0 mg/dL Aspartate Amino Transf (AST/SGOT) 13 10-37 U/L Alanine Aminotransferase (ALT/SGPT) 8 L 12-78 U/L Alkaline Phosphatase 82 50-136 U/L Total Protein 6.1 6.0-8.3 g/dL Albumin 2.8 L 3.5-5.0 g/dL Uric Acid 4.7 2.6-7.2 mg/dL Magnesium Level 2.50 H 1.80-2.40 mg/dL Iron Level 29 L 50-170 mcg/dL Total Iron Binding Capacity 115 L 250-450 mcg/dL Percent Iron Saturation 25.2 22-44 % Ferritin 934 H 15-150 ng/mL Thyroid Stimulating Hormone (TSH) 2.40 0.36-3.74 uIU/mL DIAGNOSTICS / RADIOLOGY: REASON: HYPOXIA ORDERING PHYSICIAN: MINDY ABRAMS PROCEDURE: CXR1VW - CHEST 1VW Exam Type: CHEST 1VW Clinical Information: HYPOXIA Comparison: None Findings: Right PICC line tip noted within the axillary region, consider advancing. Ill-defined infiltrates of the right lower lobe are seen consistent with pneumonia. The heart is normal in size. The bony and soft tissue structures show no worrisome pathology. IMPRESSION: Findings consistent with pneumonia. Follow-up is advised. DICTATED BY: SEVERIANO JOHNSON MD DATE: 09/18/24913 REASON: hypoxia ORDERING PHYSICIAN: ARTURO FREGOSO PROCEDURE: PULM PERF - NM PULMONARY/LUNG PERFUSION Pulmonary perfusion study HISTORY: hypoxia . COMPARISON: None TECHNIQUE: Perfusion scan was performed after IV injection of 5.0 mCi of Tc 99m MAA. FINDINGS: There is normal perfusion to both lungs. No wedge shaped or pleural-based defect identified IMPRESSION: NNormal lung perfusion study DICTATED BY: SEVERIANO JOHNSON MD DATE: 09/18/24810 REASON: Decreased renal function ORDERING PHYSICIAN: DOMENIC CALIX [facility] PROCEDURE: RENAL - US RENAL SONOGRAM Exam Type: US RENAL SONOGRAM Clinical Information: Decreased renal function Comparison: None Findings: The kidneys are hyperechoic and atrophic consistent with renal parenchymal disease. There are no calculi. No hydronephrosis or calculi are seen. No renal masses are seen. There is no evidence of perinephric fluid on either side. No evidence of significant ureteral dilatation is seen. Simple cyst right kidney seen. The right kidney measures 9.6 x 4.4 cm. The left kidney measures 7.1 x 4.3 cm. The urinary bladder is normal. No bladder masses, stones, or wall thickening is seen. IMPRESSION: Hyperechoic atrophic kidneys consistent with renal parenchymal disease. DICTATED BY: SEVERIANO JOHNSON MD DATE: 09/17/24 1525 REASON: ATRIAL FIBRILLATION WITH RAPID VENTRICULAR RESPONSE ORDERING PHYSICIAN: ANDREW HANDY MD PROCEDURE: ECHO [facility] - ECHO 2-D COMPLETE APPROVED REPORT EXAM: Two-dimensional and M-mode echocardiogram with Doppler and color Doppler. INDICATION ICD: Atrial fibrillation with rapid ventricular response, status post TAVR 2D Dimensions RVDd 3.1 cm LVEF(%) 76.8 (>50%) LVED Vol(simp.) 58.3 mL IVSd 1.4 (0.7-1.1cm) FS(%) 45 % LVES Vol(simp.) 18.4 mL LVDd 4.4 (3.8-5.6cm) LA (2D) 5.1 (1.6-4.0cm) LVEF(%, simp.) 69 % PWd 1.0 (0.7-1.1cm) Ao Root(2D) 2.5 (2.0-3.7cm) LA ESV INDEX (BP) 46.92 mL/m2 LVDs 2.4 (2.5-4.0cm) LVOT diam 1.6 (1.8-2.4cm) IVC diam 2.2 cm Deformation Strain Apical 4 -18.0 % Apical 2 -17.0 % Apical 3 -19.0 % Global Strain -18.0 % M-Mode Dimensions EPSS 1.0 cm LA (MM) 4.3 (1.6-4.0cm) Ao Root(MM) 2.8 (2.0-3.7cm) Aortic Valve AoV Vmax 3.4 m/s Ao Peak GR 47.1 mmHg LVOT Vmax 1.7 m/s AoV VTI 0.7 m Ao Mean GR 24.1 mmHg LVOT VTI 0.40 m [place] (VMAX) 1.1 cm2 [place] (VTI) 1.1 cm2 Mitral Valve MV E Vmax 188.9 cm/s DECEL Time 342 ms MV Peak GR 20 mmHg MV A Vmax 100.0 cm/s MV Mean GR 8 mmHg E/A ratio 1.9 TDI E/E' Medial 37.8 E/E' Lateral 47.2 Medial E' Peak V 5.00 cm/s Lateral E' Peak V 4.00 cm/s Pulmonary Valve PV Vmax 1.1 m/s Tricuspid Valve TR Vmax 4.0 m/s RAP (EST) 15 mmHg RVSP 89.6 mmHg TR Peak GR 74.6 mmHg Left Ventricle The left ventricle is normal size. GLS -18.0%. There is normal LV segmental wall motion. Moderate concentric left ventricular hypertrophy. LVEF is >65%. Grade II diastolic dysfunction Right Ventricle The right ventricle is normal size. The right ventricular systolic function is normal. Atria The left atrium size is severely dilated. The right atrium is borderline dilated. Aortic Valve Status post TAVR. Trivial paravavular/perivalvular leak noted. No aortic regurgitation is present. Aortic prosthetic pk gradient of 47mmHg and mean gradient ofg 25mmHg. Mitral Valve The mitral valve is mildly thickened and appear domming. There is mitral annular calcification. There is mild mitral valve regurgitation noted. There is moderate mitral valve stenosis with mean gradient of 8mmHg. Tricuspid Valve The tricuspid valve appears normal. There is moderate tricuspid valve regurgitation noted. Moderate Pulmonary hypertension, PAP 52 mmHg. Pulmonic Valve The pulmonary valve is normal in structure. There is mild pulmonic valvular regurgitation. Great Vessels The aortic root is normal in size. IVC is dilated and collapses <50% with inspir ation. Pericardium There is no pericardial effusion. Other Information Quality : Adequate Conclusion LVEF is >65%. Grade II diastolic dysfunction The left atrium size is severely dilated. Status post TAVR. Trivial paravavular/perivalvular leak noted. There is mild mitral valve regurgitation noted. There is moderate mitral valve stenosis with mean gradient of 8mmHg. Aortic prosthetic pk gradient of 47mmHg and mean gradient ofg 25mmHg. There is moderate tricuspid valve regurgitation noted. Moderate Pulmonary hypertension, PAP 52 mmHg. DICTATED BY: FANG JUSTIN MD DATE: 09/16/24 0808 . REASON: pna ORDERING PHYSICIAN: ARTURO FREGOSO PROCEDURE: CXR1VW - CHEST 1VW CHEST 1VW HISTORY: Pneumonia COMPARISON: None FINDINGS: A frontal projection of the chest was obtained. Mild right lower lung pulmonary infiltrates are seen. The heart is borderline enlarged. All the lines and tubes are again seen in place. No evidence of aortic calcification is seen. IMPRESSION: 1. Mild right lower lung pulmonary infiltrates. DICTATED BY: CIRA CORREA MD DATE: 09/14/24 1426 REASON: pna ORDERING PHYSICIAN: ARTURO FREGOSO PROCEDURE: CHEST WO - CT CHEST W/O CONTRAST CT CHEST WITHOUT CONTRAST INDICATION: Pneumonia TECHNIQUE: Routine axial images using 5 mm slice thickness were acquired from the lung apices to the bases without the administration of IV contrast.Coronal and sagittal reformatted images acquired for interpretation. CT was performed with one or more of the following dose reduction techniques: Automated exposure control, adjustment of the mA and/or kV according to patient size, or use of iterative reconstruction technique. COMPARISON: None FINDINGS: The heart size is normal. Coronary arterial wall calcific plaque noted. No pericardial effusion noted. . Mild calcific plaque is present along the aortic arch and thoracic aortic curtis without aneurysmal dilation. Valve stent contribute to mild streak artifact. The visualized great vessels and thoracic aorta are within normal limits. The trachea and airways are patent. Very subtle small patchy "ground-glass" opacities scattered throughout both upper lungs. No axillary, hilar, or mediastinal lymphadenopathy. Very trace right pleural fluid without pneumothorax. Spleen is enlarged. Gallbladder is absent. Residual pneumobilia. Visible osseous structures are intact. IMPRESSION: 1. Mild residual bilateral upper lung pneumonia and very trace right pleural fluid. 2. Splenomegaly. 3. Arteriosclerotic disease as described. DICTATED BY: LISSET GALVEZ MD DATE: 09/13/24 1559 REASON: pneumonia/ SOB ORDERING PHYSICIAN: BHUPENDRA ROSE MD PROCEDURE: CXR1VW - CHEST 1VW CHEST 1VW HISTORY: Pneumonia COMPARISON: None FINDINGS: A frontal projection of the chest was obtained. Mild bilateral pulmonary infiltrates are seen. The heart is borderline enlarged. Mild degenerative changes are seen. No evidence of aortic calcification is seen. IMPRESSION: 1. Mild bilateral pulmonary infiltrates. DICTATED BY: CIRA CORREA MD DATE: 09/12/24 7659 ASSESSMENT: Acute on chronic renal failure Anemia Acute respiratory failure with hypoxia POA Sepsis secondary to viral syndrome influenza a POA Positive influenza a infection POA Viral syndrome POA Immunosuppression state on Prograf POA Hypercoagulable state secondary AFib t on Eliquis POA History liver transplant on immunosuppressive drugs prograf POA Moderate protein calorie malnutrition. POA Chronic heart failure unknown LV EF per patient Physical deconditioning given to dyspnea on exertion POA PLAN: Labs, diagnostic, radiologic exams reviewed and interpreted by myself and supervising physician. We have reviewed external records in detail Recommend follow-up on shortness of breath before discharge Continue with Epogen 52576 units subQ weekly Require close monitoring of renal function and electrolytes Order CBC, CMP, and electrolytes in am Continue with antibiotics as per ID BiPAP as necessary, for respiratory distress Monitor blood pressure adjust medication doses as needed Avoid hypotensive episodes May use Dilaudid 0.5 mg IV every 6 hours as needed for severe pain Monitor blood sugars Strict intake, output, and daily weight should be monitored Please renally adjust medications Avoid nephrotoxic and nonsteroidal drugs Avoid contrast if possible Will continue to monitor renal function, anemia, electrolytes Treatment plan discussed with patient Questions were answered We have discussed with the other team physicians in detail about the care plan We will continue to monitor the patient closely ATTESTATION BY PHYSICIAN I have seen and examined the patient. I reviewed the documentation, medical decision making, and treatment plan as noted by the mid-level provider above. I agree with the findings and plan of care. SHENG RASHID MD, ELIZABETH SHIPPER Sep 19, 2024 13:15
[2024-09-19] MEDS ORDERED: IRON sUCROse COMPLEX 100 MG/5 ML VIAL IV ONE (13:30)
--- NOTE | 2024-09-19 14:02 | CONS ---
CONSULT NOTE: A 69-year-old female with history of liver transplant, hypertension and obesity, presented to the hospital with fever, cough and shortness of breath. The patient's symptoms have been going on for about 3 days. T-max was 101.5. The patient is also complaining of flu-like symptoms. The patient's flu came back positive. CT of the chest was done, which shows bilateral infiltrate compatible with pneumonia. Patient is receiving antibiotic treatment. With the patient was found to have pancytopenia. Patient denies any obvious bleeding. PAST MEDICAL HISTORY: * Hypertension. * Obesity. * Liver transplant. PAST SURGICAL HISTORY: * Liver transplant. * Atrial valve replacement. * Cholecystectomy. ALLERGIES: SULFA. CURRENT MEDICATIONS: Include: * Tamiflu. * Cefepime. * Doxycycline. * DuoNeb. * Tylenol. SOCIAL HISTORY: No alcohol, tobacco, or illicit drug use. FAMILY HISTORY: Noncontributory. REVIEW OF SYSTEMS: Greater than 10 systems were reviewed, negative except as documented above. PHYSICAL EXAMINATION: GENERAL: Elderly female, awake. VITAL SIGNS: Temperature 98.8, pulse 75, respiratory rate 19, BP 122/54. EYES: No icterus. Pupils equal and reactive. HENT: No oral thrush seen. Moist oral mucosa. NECK: Supple, no JVD or thyromegaly. LUNGS: Crackles, no rhonchi. CARDIOVASCULAR: S1, S2 regular, no murmur heard. ABDOMEN: Obese, soft, nontender. Bowel sounds present. CENTRAL NERVOUS SYSTEM: Awake, alert, oriented x 3. No focal deficits. SKIN: No rashes, no itchiness. LYMPHATIC: No peripheral lymphadenopathy. BACK: No deformity, no pressure ulcer. MUSCULOSKELETAL: No joint swelling, erythema, or tenderness. LABORATORY DATA: Sodium 136, potassium 3.1, BUN 30, creatinine 1.7. WBC 3.9, hemoglobin 8.1, platelets 175,000. Stress antigen positive for type A. Blood culture, no growth for 3 days. RADIOLOGY: CT chest showed bilateral infiltrates. ASSESSMENT: 1.Anemia 2. Leukopenia 4. Thrombocytopenia 4. Liver transplant with the patient receiving tacrolimus 5. Viral infection 6. Sepsis 7. Patient receiving anticoagulation with Eliquis Plan 1. Peripheral blood smear showed red blood cells to be microcytic hypochromic red blood cell consistent with iron deficiency anemia. There was no fragment cell or schistocyte. There is no teardrop cell. There is no rouleaux phenomena. There is no pelger-Huet cell. White blood cell with no blasts. Platelet was normal in morphology and count. 2. There was hypersegmented neutrophils. This patient to be started on folic acid 1 mg p.o. daily and vitamin B12 1000 mcg p.o. daily. 3. Patient to be started on IV iron with Venofer 200 mg IV daily while the patient in the hospital. 2. This patient will need oral iron supplement every other day for at least 6 months when discharged home. 3. No need for blood product transfusion 4. This patient pancytopenia due to transplant of the liver and is due to medication such as tacrolimus. 5. If this patient is stable she could be discharged to be seen as outpatient LAB RESULTS 09/19/24 09:43: Stool Occult Blood NEGATIVE 09/19/24 08:14: White Blood Count 3.8L, Red Blood Count 2.41L, Hemoglobin 7.9L, Hematocrit 24.2L, Mean Corpuscular Volume 100.4H, Mean Corpuscular Hemoglobin 32.8, Mean Corpuscular Hemoglobin Concent 32.6, Red Cell Distribution Width 18.6H, Platelet Count 79L, Mean Platelet Volume 9.9, Immature Granulocyte % (Auto) 0.8, Neutrophils (%) (Auto) 83.6H, Lymphocytes (%) (Auto) 6.1L, Monocytes (%) (Auto) 7.1, Eosinophils (%) (Auto) 2.4, Basophils (%) (Auto) 0.0, Neutrophils # (Auto) 3.2, Lymphocytes # (Auto) 0.2L, Monocytes # (Auto) 0.3, Eosinophils # (Auto) 0.09, Basophils # (Auto) 0.00, Absolute Immature Granulocyte (auto 0.03, Nucleated Red Blood Cells 0.0, Sodium Level 136, Potassium Level 4.7, Chloride Level 109, Carbon Dioxide Level 19L, Blood Urea Nitrogen 34H, Creatinine 1.9H, Glomerular Filtration Rate Calc 28, Random Glucose 82, Total Calcium 8.1L, P hosphorus Level 3.3, Total Bilirubin 0.7, Aspartate Amino Transf (AST/SGOT) 13, Alanine Aminotransferase (ALT/SGPT) 8L, Alkaline Phosphatase 82, Total Protein 6.1, Albumin 2.8L 09/18/24 13:23: Blood Gas Specimen Type Venous, Arterial Blood Oxygen Saturation 50.5L, Venous Blood pH 7.310L, Venous Blood pCO2 at Patient Temp 31L, Venous Blood pO2 at Patient Temp 28.3, Venous Blood HCO3 15.0L, Venous Blood Base Excess -10.2L, Venous Blood Total Hemoglobin 8.8L, Sodium (Blood Gas) 137, Bedside Potassium (Blood Gas) 4.4, Bedside Chloride (Blood Gas) 109H, Bedside Glucose (Blood Gas) 83, Bedside Ionized Calcium (Blood Gas) 1.21, Bedside Lactic Acid (Blood Gas) 0.57, Blood Gas Temperature 37.0, Blood Gas Flow-by 3.00, Blood Gas Vent Mode NC, FiO2 32.0, Blood Gas Specimen Comment WERNER PABON 09/18/24 04:46: Uric Acid 4.7, Magnesium Level 2.50H, Iron Level 29L, Total Iron Binding Capacity 115L, Percent Iron Saturation 25.2, Ferritin 934H, Thyroid Stimulating Hormone (TSH) 2.40 Laboratory Tests Test 09/19/24 08:14 09/19/24 09:43 White Blood Count 3.8 K/uL (4.8-10.8) L Red Blood Count 2.41 MIL/uL (4.00-5.50) L Hemoglobin 7.9 g/dL (12.0-16.0) L Hematocrit 24.2 % (36-48) L Mean Corpuscular Volume 100.4 fL (79-99) H Mean Corpuscular Hemoglobin 32.8 pg (27.0-33.0) Mean Corpuscular Hemoglobin Concent 32.6 g/dL (32.0-36.0) Red Cell Distribution Width 18.6 % (11.0-15.5) H Platelet Count 79 K/uL (130-400) L Mean Platelet Volume 9.9 fL (7.5-10.5) Immature Granulocyte % (Auto) 0.8 % (0-1) Neutrophils (%) (Auto) 83.6 % (40.0-77.0) H Lymphocytes (%) (Auto) 6.1 % (21.0-51.0) L Monocytes (%) (Auto) 7.1 % (3.0-13.0) Eosinophils (%) (Auto) 2.4 % (0.0-8.0) Basophils (%) (Auto) 0.0 % (0.0-5.0) Neutrophils # (Auto) 3.2 K/uL (1.8-7.7) Lymphocytes # (Auto) 0.2 K/uL (1.0-4.8) L Monocytes # (Auto) 0.3 K/uL (0.1-1.0) Eosinophils # (Auto) 0.09 K/uL (0.00-0.70) Basophils # (Auto) 0.00 K/uL (0.00-0.20) Absolute Immature Granulocyte (auto 0.03 K/uL (0-1) Nucleated Red Blood Cells 0.0 % (0.0-0.19) Sodium Level 136 mmol/L (136-145) Potassium Level 4.7 mmol/L (3.5-5.1) Chloride Level 109 mmol/L (101-111) Carbon Dioxide Level 19 mmol/L (21-32) L Blood Urea Nitrogen 34 mg/dL (7-18) H Creatinine 1.9 mg/dL (0.5-1.0) H Glomerular Filtration Rate Calc 28 mL/min (>90) Random Glucose 82 mg/dL (70-105) Total Calcium 8.1 mg/dL (8.5-10.1) L Phosphorus Level 3.3 mg/dL (2.5-4.9) Total Bilirubin 0.7 mg/dL (0.2-1.0) Aspartate Amino Transf (AST/SGOT) 13 U/L (10-37) Alanine Aminotransferase (ALT/SGPT) 8 U/L (12-78) L Alkaline Phosphatase 82 U/L (50-136) Total Protein 6.1 g/dL (6.0-8.3) Albumin 2.8 g/dL (3.5-5.0) L Stool Occult Blood NEGATIVE (NEGATIVE) ROSALBA ASHLEY MD Sep 19, 2024 14:02
--- NOTE | 2024-09-19 15:49 | PN ---
[facility] PROGRESS NOTE Date Patient Seen: Sep 19, 2024 Time of Visit: 15:47 Supervising Physician: Dr. Shiva Avalos PROBLEM LIST: Non gap metabolic acidosis Not present on admission Acute kidney insufficiency Acute on chronic hypoxemic respiratory failure, home O2 dependent Influenza A infection w superimposed Bacterial PNA grade 2 diastolic heart failure, LVEF 65% Pancytopenia secondary to immunocompromised state from liver transplant History of liver transplant on tacrolimus Pulmonary hypertension History of aortic stenosis status post remote TAVR with bovine valve Paroxysmal atrial fibrillation on Eliquis INTERVAL HISTORY: Patient evaluated at bedside today, she continues on supplemental O2 at approximately 2 L nasal cannula, torsemide has been discontinued due to RAKEL, creatinine level remains 1.9 today. Patient's platelets were 79, white count 3.8, hemoglobin 7.9. Patient continues on Eliquis. Nursing staff to continue weaning oxygen. No overnight events reported. Patient denied any new onset symptoms. We will continue to follow the patient closely Plan Continue supplemental O2 Hold torsemide Continue to monitor creatinine Patient aware of bleeding risk with thrombocytopenia and anticoagulation REVIEW OF SYSTEMS: 12 point ROS reviewed with patient. Pertinent positives mentioned above. Otherwise negative. PHYSICAL EXAM: GENERAL: alert, weak, awake oriented x 3 HEENT: EOMI, Sclera non icteric, moist mucosa NECK: Supple, no JVD, trachea midline LUNGS: tight air entry, dyspneic, tachypneic HEART: Regular rate and rhythm. Normal S1 and S2, without murmurs ABD: Abdomen soft, nontender. Bowel sounds present EXT: No clubbing cyanosis or edema NEURO: Alert and oriented to person, follows commands Vital Signs (last 8hr) Date Time Temp Pulse Resp B/P (MAP) Pulse Ox O2 Delivery O2 Flow Rate FiO2 09/19/24 12:00 98.1 77 18 114/62 92 Nasal Cannula 2.0 09/19/24 11:31 74 20 N/Cannula Low lpm 2.0 09/19/24 11:27 74 20 09/19/24 08:00 98.1 80 18 140/92 LABS: Hematology Labs: Test 09/19/24 08:14 Range/Units White Blood Count 3.8 L 4.8-10.8 K/uL Red Blood Count 2.41 L 4.00-5.50 MIL/uL Hemoglobin 7.9 L 12.0-16.0 g/dL Hematocrit 24.2 L 36-48 % Mean Corpuscular Volume 100.4 H 79-99 fL Mean Corpuscular Hemoglobin 32.8 27.0-33.0 pg Mean Corpuscular Hemoglobin Concent 32.6 32.0-36.0 g/dL Red Cell Distribution Width 18.6 H 11.0-15.5 % Platelet Count 79 L 130-400 K/uL Mean Platelet Volume 9.9 7.5-10.5 fL Immature Granulocyte % (Auto) 0.8 0-1 % Neutrophils (%) (Auto) 83.6 H 40.0-77.0 % Lymphocytes (%) (Auto) 6.1 L 21.0-51.0 % Monocytes (%) (Auto) 7.1 3.0-13.0 % Eosinophils (%) (Auto) 2.4 0.0-8.0 % Basophils (%) (Auto) 0.0 0.0-5.0 % Neutrophils # (Auto) 3.2 1.8-7.7 K/uL Lymphocytes # (Auto) 0.2 L 1.0-4.8 K/uL Monocytes # (Auto) 0.3 0.1-1.0 K/uL Eosinophils # (Auto) 0.09 0.00-0.70 K/uL Basophils # (Auto) 0.00 0.00-0.20 K/uL Absolute Immature Granulocyte (auto 0.03 0-1 K/uL Nucleated Red Blood Cells 0.0 0.0-0.19 % Chemistry Labs: Test 09/19/24 08:14 09/18/24 04:46 Range/Units Sodium Level 136 136-145 mmol/L Potassium Level 4.7 3.5-5.1 mmol/L Chloride Level 109 101-111 mmol/L Carbon Dioxide Level 19 L 21-32 mmol/L Blood Urea Nitrogen 34 H 7-18 mg/dL Creatinine 1.9 H 0.5-1.0 mg/dL Glomerular Filtration Rate Calc 28 >90 mL/min Random Glucose 82 70-105 mg/dL Total Calcium 8.1 L 8.5-10.1 mg/dL Phosphorus Level 3.3 2.5-4.9 mg/dL Total Bilirubin 0.7 0.2-1.0 mg/dL Aspartate Amino Transf (AST/SGOT) 13 10-37 U/L Alanine Aminotransferase (ALT/SGPT) 8 L 12-78 U/L Alkaline Phosphatase 82 50-136 U/L Total Protein 6.1 6.0-8.3 g/dL Albumin 2.8 L 3.5-5.0 g/dL Uric Acid 4.7 2.6-7.2 mg/dL Magnesium Level 2.50 H 1.80-2.40 mg/dL Iron Level 29 L 50-170 mcg/dL Total Iron Binding Capacity 115 L 250-450 mcg/dL Percent Iron Saturation 25.2 22-44 % Ferritin 934 H 15-150 ng/mL Thyroid Stimulating Hormone (TSH) 2.40 0.36-3.74 uIU/mL DIAGNOSTICS / RADIOLOGY RESULTS: [ ] PLAN Discontinue Torsemide Monitor kidney function monitor for any signs of bleeding NEURO: Minimize central acting medications as possible. Maintain fall precautions, adequate lighting during the day PULMONARY: Supplemental 02 as needed. Maintain aspiration precautions at all times Atrovent, pulmicort, mucomyst and CPT. Aggressive pulmonary toileting No steroids at this time CXR in AM CARDIOVASCULAR: Follow hemodynamics. Vital signs per facility protocol GI & NUTRITION: Continue with nutritional support. Continue stool softeners and laxatives as needed. KIDNEYS & ELECTROLYTES: Strict monitoring of intake, output and overall fluid balance. Avoid nephrotoxic medications to the extent possible. Medications to be dosed according to renal function. Monitor electrolytes and replace as needed ENDOCRINE: Maintain blood glucose between 100-180 at all times. Hypoglycemia protocol in place INFECTIOUS DISEASE: Trend temperature, WBC and procalcitonin level Follow cultures, deescalate antibiotics as soon as possible. Panculture if new onset fever ONCOLOGY/HEMATOLOGY/COAGULATION: Monitor for s/s of bleeding Monitor hemoglobin, coagulation studies as needed SKIN: Pressure ulcer prevention per facility protocol Specialty mattress ORTHO/REHAB: Continue PT/OT Prophylaxis: Continue GI and DVT prophylaxis Code Status: Full Resuscitation Disposition: TBD Care patient spent time exceeds more than 35 minutes STEPHANIE PAK Sep 19, 2024 15:49
--- NOTE | 2024-09-19 21:18 | PN ---
INFECTIOUS DISEASE PROGRESS NOTE Date of Service: Sep 19, 2024 SUBJECTIVE: This is 69-year-old female patient who was seen and examined at bedside in room 327. Patient is awake, alert and oriented x3. Patient is sitting up on the bedside chair. Patient with dyspneic episodes on exertion. Continues on oxygen via nasal cannula at 2 liters/minute. Continues on cefepime, fluconazole and doxycycline. Tamiflu has been completed. Patient is afebrile, temperature is 98.1. Patient with low hemoglobin of 7.9. Patient has been approved to [facility] and rehab and we will possibly be discharged today. Refer to medication reconciliation for length of antibiotics. PHYSICAL EXAM EYES: Anicteric. Pupils equal and reactive. HENT: No oral thrush seen, moist Oral mucosa. NECK: Supple, no JVD or thyromegaly. LUNGS: Good air entry. No rales, no rhonchi. Coughing episodes. Oxygen support via nasal cannula. CARDIOVASCULAR: S1, S2 regular. No murmur heard. ABDOMEN: Soft, non tender, bowel sounds present, no organomegaly CENTRAL NERVOUS SYSTEM: Awake, alert, oriented x 3. SKIN: No rashes, no swelling. LYMPHATICS: No peripheral lymphadenopathy. MUSCULOSKELETAL: No joint swelling, erythema or tenderness. EXTREMITIES: No cyanosis or clubbing. BACK: No deformity, no pressure ulcer. GENITOURINARY: No dysuria or hematuria. Vital Sign (Last 12 Hours) 09/19/24 09/19/24 09/19/24 09/19/24 11:27 11:31 12:00 16:00 Temp 98.1 98.8 Pulse 74 74 77 75 Resp 20 20 18 18 B/P (MAP) 114/62 117/61 Pulse Ox 92 O2 Delivery N/Cannula Low lpm Nasal Cannula Room Air O2 Flow Rate 2.0 2.0 09/19/24 09/19/24 09/19/24 19:00 19:53 19:54 Temp 97.9 Pulse 79 81 83 Resp 32 20 20 B/P (MAP) 128/65 Pulse Ox 98 O2 Delivery Nasal Cannula N/Cannula Low lpm O2 Flow Rate 3.0 2.0 Intake & Output (last 24hrs) 09/18/24 09/18/24 09/19/24 15:00 23:00 07:00 Intake Total 440 ml 220 ml Balance 440 ml 220 ml LABS: Laboratory: Test 09/19/24 09:43 09/19/24 08:14 09/18/24 13:23 09/18/24 04:46 Range/Units Stool Occult Blood NEGATIVE NEGATIVE White Blood Count 3.8 L 4.8-10.8 K/uL Red Blood Count 2.41 L 4.00-5.50 MIL/uL Hemoglobin 7.9 L 12.0-16.0 g/dL Hematocrit 24.2 L 36-48 % Mean Corpuscular Volume 100.4 H 79-99 fL Mean Corpuscular Hemoglobin 32.8 27.0-33.0 pg Mean Corpuscular Hemoglobin Concent 32.6 32.0-36.0 g/dL Red Cell Distribution Width 18.6 H 11.0-15.5 % Platelet Count 79 L 130-400 K/uL Mean Platelet Volume 9.9 7.5-10.5 fL Immature Granulocyte % (Auto) 0.8 0-1 % Neutrophils (%) (Auto) 83.6 H 40.0-77.0 % Lymphocytes (%) (Auto) 6.1 L 21.0-51.0 % Monocytes (%) (Auto) 7.1 3.0-13.0 % Eosinophils (%) (Auto) 2.4 0.0-8.0 % Basophils (%) (Auto) 0.0 0.0-5.0 % Neutrophils # (Auto) 3.2 1.8-7.7 K/uL Lymphocytes # (Auto) 0.2 L 1.0-4.8 K/uL Monocytes # (Auto) 0.3 0.1-1.0 K/uL Eosinophils # (Auto) 0.09 0.00-0.70 K/uL Basophils # (Auto) 0.00 0.00-0.20 K/uL Absolute Immature Granulocyte (auto 0.03 0-1 K/uL Nucleated Red Blood Cells 0.0 0.0-0.19 % Sodium Level 136 136-145 mmol/L Potassium Level 4.7 3.5-5.1 mmol/L Chloride Level 109 101-111 mmol/L Carbon Dioxide Level 19 L 21-32 mmol/L Blood Urea Nitrogen 34 H 7-18 mg/dL Creatinine 1.9 H 0.5-1.0 mg/dL Glomerular Filtration Rate Calc 28 >90 mL/min Random Glucose 82 70-105 mg/dL Total Calcium 8.1 L 8.5-10.1 mg/dL Phosphorus Level 3.3 2.5-4.9 mg/dL Total Bilirubin 0.7 0.2-1.0 mg/dL Aspartate Amino Transf (AST/SGOT) 13 10-37 U/L Alanine Aminotransferase (ALT/SGPT) 8 L 12-78 U/L Alkaline Phosphatase 82 50-136 U/L Total Protein 6.1 6.0-8.3 g/dL Albumin 2.8 L 3.5-5.0 g/dL Blood Gas Specimen Type Venous Arterial Blood Oxygen Saturation 50.5 L 94.0-98.0 % Venous Blood pH 7.310 L 7.320-7.430 Venous Blood pCO2 at Patient Temp 31 L 38-54 Venous Blood pO2 at Patient Temp 28.3 23.0-48.0 mmHg Venous Blood HCO3 15.0 L 22.0-29.0 Venous Blood Base Excess -10.2 L -2.0-3.0 Venous Blood Total Hemoglobin 8.8 L 12.0-16.0 Sodium (Blood Gas) 137 136-145 MMOL/L Bedside Potassium (Blood Gas) 4.4 3.4-4.5 MMOL/L Bedside Chloride (Blood Gas) 109 H 98-107 MMOL/L Bedside Glucose (Blood Gas) 83 65-95 MG/DL Bedside Ionized Calcium (Blood Gas) 1.21 1.15-1.33 MMOL/L Bedside Lactic Acid (Blood Gas) 0.57 0.36-0.75 MMOL/L Blood Gas Temperature 37.0 35.5-37.0 CELSIUS Blood Gas Flow-by 3.00 0.00-15.00 L/min Blood Gas Vent Mode NC ROOM AIR FiO2 32.0 % Blood Gas Specimen Comment LARAsael ROBERTSCA Uric Acid 4.7 2.6-7.2 mg/dL Magnesium Level 2.50 H 1.80-2.40 mg/dL Iron Level 29 L 50-170 mcg/dL Total Iron Binding Capacity 115 L 250-450 mcg/dL Percent Iron Saturation 25.2 22-44 % Ferritin 934 H 15-150 ng/mL Thyroid Stimulating Hormone (TSH) 2.40 0.36-3.74 uIU/mL ASSESSMENT: Multifocal pneumonia. Influenza Viral infection type A. Sepsis. History of liver transplant. Underlying immunosuppression. History of pulmonary hypertension. Acute renal failure. Anemia. PLAN: Continue on cefepime. Continue on fluconazole. Continue on doxycycline. Completed Tamiflu. Continue bronchodilators. Continue oxygen support. Patient has been approved to [facility] and rehab. Refer to medication reconciliation for length of antibiotics. This case was reviewed and discussed with my supervising physician and the above assessment and plan was formulated and agreed upon. ATTESTATION BY PHYSICIAN I have seen and examined the patient. I reviewed the documentation, medical decision making, and treatment plan as noted by the mid-level provider above. I agree with the findings and plan of care. BRIDGER DREW MD, MIRTA L [employer] Sep 19, 2024 21:18
[2024-09-19] MEDS: IRON sUCROse COMPLEX 100 MG/5 ML VIAL IV ONE (22:25)
[2024-09-20] VITALS (8 sets, daily range): BP systolic 119–122; BP diastolic 51–66; PULSE 71–76; RESP 18–28; TEMP 97.3–98.2; O2SAT 95–98
--- NOTE | 2024-09-20 08:30 | NUR ---
0815 REPORT GIVEN TO NERIS SMALL @ [facility]. WILL SEND VAN FOR BEVERAGE MANAGER
--- NOTE | 2024-09-20 12:42 | PN ---
[facility] PROGRESS NOTE Date Patient Seen: Sep 20, 2024 Time of Visit: 12:42 Supervising Physician: [ ] Supervising Physician: Dr. Shiva Avalos PROBLEM LIST: Non gap metabolic acidosis Not present on admission Acute kidney insufficiency Acute on chronic hypoxemic respiratory failure, home O2 dependent Influenza A infection w superimposed Bacterial PNA grade 2 diastolic heart failure, LVEF 65% Pancytopenia secondary to immunocompromised state from liver transplant History of liver transplant on tacrolimus Pulmonary hypertension History of aortic stenosis status post remote TAVR with bovine valve Paroxysmal atrial fibrillation on Eliquis INTERVAL HISTORY: Patient evaluated at bedside, currently on 2 L nasal cannula,. Was supposed to discharge yesterday, she states that nephrology had not cleared her for discharge. Nursing staff states the nephrology had an flat acute patient for discharge. We will continue to follow the patient however from her point of view patient was cleared for discharge to SNF facility Plan Continue supplemental O2 Hold torsemide Continue to monitor creatinine Patient aware of bleeding risk with thrombocytopenia and anticoagulation REVIEW OF SYSTEMS: 12 point ROS reviewed with patient. Pertinent positives mentioned above. Otherwise negative. PHYSICAL EXAM: GENERAL: alert, weak, awake oriented x 3 HEENT: EOMI, Sclera non icteric, moist mucosa NECK: Supple, no JVD, trachea midline LUNGS: tight air entry, dyspneic, tachypneic HEART: Regular rate and rhythm. Normal S1 and S2, without murmurs ABD: Abdomen soft, nontender. Bowel sounds present EXT: No clubbing cyanosis or edema NEURO: Alert and oriented to person, follows commands Vital Signs (last 8hr) Date Time Temp Pulse Resp B/P (MAP) Pulse Ox O2 Delivery O2 Flow Rate FiO2 09/20/24 12:25 76 20 N/Cannula Low lpm 2.0 09/20/24 12:23 76 20 09/20/24 08:02 96 Nasal Cannula* 2 N/A Ventilator+ 09/20/24 08:00 98.2 71 18 119/63 97 Room Air 21 09/20/24 06:52 71 20 09/20/24 06:51 71 20 LABS: Hematology Labs: Test 09/19/24 08:14 Range/Units White Blood Count 3.8 L 4.8-10.8 K/uL Red Blood Count 2.41 L 4.00-5.50 MIL/uL Hemoglobin 7.9 L 12.0-16.0 g/dL Hematocrit 24.2 L 36-48 % Mean Corpuscular Volume 100.4 H 79-99 fL Mean Corpuscular Hemoglobin 32.8 27.0-33.0 pg Mean Corpuscular Hemoglobin Concent 32.6 32.0-36.0 g/dL Red Cell Distribution Width 18.6 H 11.0-15.5 % Platelet Count 79 L 130-400 K/uL Mean Platelet Volume 9.9 7.5-10.5 fL Immature Granulocyte % (Auto) 0.8 0-1 % Neutrophils (%) (Auto) 83.6 H 40.0-77.0 % Lymphocytes (%) (Auto) 6.1 L 21.0-51.0 % Monocytes (%) (Auto) 7.1 3.0-13.0 % Eosinophils (%) (Auto) 2.4 0.0-8.0 % Basophils (%) (Auto) 0.0 0.0-5.0 % Neutrophils # (Auto) 3.2 1.8-7.7 K/uL Lymphocytes # (Auto) 0.2 L 1.0-4.8 K/uL Monocytes # (Auto) 0.3 0.1-1.0 K/uL Eosinophils # (Auto) 0.09 0.00-0.70 K/uL Basophils # (Auto) 0.00 0.00-0.20 K/uL Absolute Immature Granulocyte (auto 0.03 0-1 K/uL Nucleated Red Blood Cells 0.0 0.0-0.19 % Chemistry Labs: Test 09/19/24 08:14 Range/Units Sodium Level 136 136-145 mmol/L Potassium Level 4.7 3.5-5.1 mmol/L Chloride Level 109 101-111 mmol/L Carbon Dioxide Level 19 L 21-32 mmol/L Blood Urea Nitrogen 34 H 7-18 mg/dL Creatinine 1.9 H 0.5-1.0 mg/dL Glomerular Filtration Rate Calc 28 >90 mL/min Random Glucose 82 70-105 mg/dL Total Calcium 8.1 L 8.5-10.1 mg/dL Phosphorus Level 3.3 2.5-4.9 mg/dL Total Bilirubin 0.7 0.2-1.0 mg/dL Aspartate Amino Transf (AST/SGOT) 13 10-37 U/L Alanine Aminotransferase (ALT/SGPT) 8 L 12-78 U/L Alkaline Phosphatase 82 50-136 U/L Total Protein 6.1 6.0-8.3 g/dL Albumin 2.8 L 3.5-5.0 g/dL DIAGNOSTICS / RADIOLOGY RESULTS: [ ] PLAN Discontinue Torsemide Monitor kidney function monitor for any signs of bleeding NEURO: Minimize central acting medications as possible. Maintain fall precautions, adequate lighting during the day PULMONARY: Supplemental 02 as needed. Maintain aspiration precautions at all times Atrovent, pulmicort, mucomyst and CPT. Aggressive pulmonary toileting No steroids at this time CXR in AM CARDIOVASCULAR: Follow hemodynamics. Vital signs per facility protocol GI & NUTRITION: Continue with nutritional support. Continue stool softeners and laxatives as needed. KIDNEYS & ELECTROLYTES: Strict monitoring of intake, output and overall fluid balance. Avoid nephrotoxic medications to the extent possible. Medications to be dosed according to renal function. Monitor electrolytes and replace as needed ENDOCRINE: Maintain blood glucose between 100-180 at all times. Hypoglycemia protocol in place INFECTIOUS DISEASE: Trend temperature, WBC and procalcitonin level Follow cultures, deescalate antibiotics as soon as possible. Panculture if new onset fever ONCOLOGY/HEMATOLOGY/COAGULATION: Monitor for s/s of bleeding Monitor hemoglobin, coagulation studies as needed SKIN: Pressure ulcer prevention per facility protocol Specialty mattress ORTHO/REHAB: Continue PT/OT Prophylaxis: Continue GI and DVT prophylaxis Code Status: Full Resuscitation Disposition: TBD Care patient spent time exceeds more than 35 minutes STEPHANIE PAK Sep 20, 2024 12:42
--- NOTE | 2024-09-20 13:18 | NUR ---
PATIENT LEFT HOSPITAL VIA W/C AND SLAT TWISTER. O2 AT 3 L/MIN VIA NC
--- NOTE | 2024-09-20 20:54 | PN ---
INFECTIOUS DISEASE FOLLOWUP NOTE DATE OF SERVICE: 09/20/2024 SUBJECTIVE: The patient is seen and examined at bedside today. The patient has no fever, no chills. ____. No chest pain. No palpitation or orthopnea. Denies depression, no suicidal ideation. No ____. PHYSICAL EXAMINATION:. VITAL SIGNS: Today, temperature 97.5. EYES: No icterus. Pupils equal and reactive. HENT: No oral thrush seen. Moist oral mucosa. NECK: Supple, no JVD, no thyromegaly. LUNGS: Good air entry. Few crackles bilaterally. CARDIOVASCULAR: S1, S2 regular. No murmur heard. ABDOMEN: Full, soft, nontender. Bowel sounds are present. CENTRAL NERVOUS SYSTEM: Awake, alert, oriented x 3. No focal deficits. SKIN: No rashes, no itchiness. LYMPHATIC: No peripheral lymphadenopathy. BACK: No deformity, no pressure ulcer. ASSESSMENT: A 69-year-old female with multiple problems. Current problems include: * Sepsis. * Parainfluenza infection. * Pneumonia. * Liver transplant status. * Underlying immunosuppression. * Hypokalemia. * Obesity. PLAN: * Continue cefepime. * Continue fluconazole. * Continue antirejection for renal transplant. * Continue pain management. * Continue antidiabetic. * Continue nutritional support. * Continue oxygen. * The patient will be followed up closely. TID: [id number] RECEIPT: [id number]
--- NOTE | 2024-09-20 22:48 | PN ---
SUBJECTIVE: This patient has multiple problems including renal failure, anemia, shortness of breath. The patient is being considered for discharge to [facility]. No other aggravating or relieving factors. The patient has previously complained of shortness of breath. No other associated finding. The patient has acidosis; renal dysfunction; influenzae infection; diastolic heart failure; pancytopenia; history of liver transplantation, on tacrolimus; pulmonary hypertension; aortic stenosis; previous TAVR and proximal atrial fibrillation. No other associated finding. No other aggravating or relieving factors. PHYSICAL EXAMINATION: GENERAL: Pale, no other distress. VITAL SIGNS: Blood pressure is 119/60, pulse 71, respiratory rate 18. NECK: Supple. No masses, bruits. Thyroid is palpable. Neck has no bruits. CHEST: Shows equal thoracic percussion note being resonant in all areas. CARDIAC: Regular rhythm. No rub. No S3, S4. No parasternal heave. ABDOMEN: No guarding or tenderness. Bowel sounds present. BACK: No tenderness or back deformities. LABORATORY DATA: We have reviewed available labs in detail. The patient has hemoglobin low up to 7.9. Other chemistries reviewed. Creatinine is elevated up to 1.9. PROBLEMS: [id number] renal failure, acidosis, anemia, multiple other comorbidities as described above. The patient is being considered for discharge to [facility]. PLAN: Will be to continued followup. The patient has a history of atrial fibrillation, aortic stenosis, pulmonary hypertension, liver transplant. Will need followup on all these issues. Influenza A has been treated. Nonsteroidal drugs to be avoided. Dose of medicine to be adjusted. ____ [facility] will need followup on that. Thank you for this patient. TID: [id number] RECEIPT: [id number] JOANIE
== END 2024-09-20 13:30 | DRG 871 ==
LOC: EDH 06:57 → EDHIP 09:40 → 3DH 22:38
PROVIDERS: ADMIT Internal Medicine; ATTEND Internal Medicine
PROC: 02HV33Z Insertion of Infusion Device into Superior Vena Cava, Percutaneous Approach (ICD-10-PCS; 2024-09-12)
PROC: 5A09357 Assistance with Respiratory Ventilation, Less than 24 Consecutive Hours, Continuous Positive Airway Pressure (ICD-10-PCS; principal; 2024-09-13)
PROC: 5A09357 Assistance with Respiratory Ventilation, Less than 24 Consecutive Hours, Continuous Positive Airway Pressure (ICD-10-PCS; 2024-09-14)
PROC: 5A09357 Assistance with Respiratory Ventilation, Less than 24 Consecutive Hours, Continuous Positive Airway Pressure (ICD-10-PCS; 2024-09-15)
PROC: 5A09357 Assistance with Respiratory Ventilation, Less than 24 Consecutive Hours, Continuous Positive Airway Pressure (ICD-10-PCS; 2024-09-16)
PROC: 5A09357 Assistance with Respiratory Ventilation, Less than 24 Consecutive Hours, Continuous Positive Airway Pressure (ICD-10-PCS; 2024-09-17)
PROC: 5A09357 Assistance with Respiratory Ventilation, Less than 24 Consecutive Hours, Continuous Positive Airway Pressure (ICD-10-PCS; 2024-09-20)
PROC: 5A1935Z Respiratory Ventilation, Less than 24 Consecutive Hours (ICD-10-PCS; 2024-09-20)
PROC: 0BH17EZ Insertion of Endotracheal Airway into Trachea, Via Natural or Artificial Opening (ICD-10-PCS; 2024-09-20)
DX: A41.9 Sepsis, unspecified organism (principal); I50.33 Acute on chronic diastolic (congestive) heart failure; J15.9 Unspecified bacterial pneumonia; J96.21 Acute and chronic respiratory failure with hypoxia; J10.08 Influenza due to other identified influenza virus with other specified pneumonia; N17.9 Acute kidney failure, unspecified; D68.69 Other thrombophilia; D61.818 Other pancytopenia; D84.821 Immunodeficiency due to drugs; E87.20 Acidosis, unspecified; I13.0 Hypertensive heart and chronic kidney disease with heart failure and stage 1 through stage 4 chronic kidney disease, or unspecified chronic kidney disease; Z94.4 Liver transplant status; E44.0 Moderate protein-calorie malnutrition; B34.9 Viral infection, unspecified; Z20.822 Contact with and (suspected) exposure to COVID-19; N18.9 Chronic kidney disease, unspecified; I27.20 Pulmonary hypertension, unspecified; I48.0 Paroxysmal atrial fibrillation; D63.1 Anemia in chronic kidney disease; T45.1X5A Adverse effect of antineoplastic and immunosuppressive drugs, initial encounter; E87.6 Hypokalemia; I08.3 Combined rheumatic disorders of mitral, aortic and tricuspid valves; I37.1 Nonrheumatic pulmonary valve insufficiency; K76.9 Liver disease, unspecified; K21.9 Gastro-esophageal reflux disease without esophagitis; Z79.01 Long term (current) use of anticoagulants; Y92.89 Other specified places as the place of occurrence of the external cause; Z79.621 Long term (current) use of calcineurin inhibitor; Z95.2 Presence of prosthetic heart valve; Z99.81 Dependence on supplemental oxygen; Z79.899 Other long term (current) drug therapy; Z68.29 Body mass index [BMI] 29.0-29.9, adult
CPT/HCPCS: 36415; 36600; 71045; 71250; 76770; 78580; 80048; 80053; 80197; 82248; 82270; 82308; 82435; 82607; 82728; 82746; 82803; 82947; 83540; 83550; 83605; 83735; 83880; 84100; 84132; 84295; 84443; 84484; 84550; 85025; 85027; 85610; 85730; 86850; 86900; 86901; 87040; 87635; 87804; 93005; 93306; 93356; 94640; 94664; 94667; 94668; 96365; 96366; 96375; 99285; A9540; G0378; J0456; J0692; J1450; J1756; J2405; J2543; J3475; J3490; J7507; J3370; Q5106

== ENCOUNTER 2024-10-02 08:15 | Day surgery (SDC) | payer MEDICARE ==
[2024-10-02] VITALS (11 sets, daily range): BP systolic 107–120; BP diastolic 48–61; PULSE 71–86; RESP 16–17; TEMP 97–98
[~2024-10-02] VITALS: Ht 160 cm; Wt 69.4 kg
[~2024-10-02 08:15] MED LIST: ALLO100T PO; APIX5TAB PO; COPP2CAP PO; FOLI0.8C PO; LOPE2CAP PO; MACI10TA PO; METO-408 PO; SERT-440 PO; SPIR25TA6 PO; TACR1CAP10 PO; TADA20TA72 PO; TENO300 PO; [UNRECOGNIZED DRUG - CODE] PO
[2024-10-02] MEDS ORDERED: FOLI0.8T53 PO (11:02)
[2024-10-02] MEDS ORDERED: PANT40TA54 PO (11:02)
[2024-10-02] MEDS ORDERED: LORA10TA7 PO (11:02)
[2024-10-02] MEDS ORDERED: TORS20TA4 PO (11:02)
[2024-10-02] MEDS ORDERED: proPOFol 10 MG/ML 20ML VIAL IV ONE (12:45)
[2024-10-02] MEDS ORDERED: LIDOCAINE PF 100MG/5ML (2%) SYRINGE 5ML ONE (12:46)
[2024-10-02] MEDS ORDERED: phenylEPHRINE HCL 10 MG/ML 1ML VIAL IV ONE (12:52)
--- NOTE | 2024-10-02 14:14 | EKG ---
[facility] Test Date: 2024-10-02 Test Time: 11:09:40 Pat Name: AMOR CHARLTON Department: [facility] Room: [facility] Gender: F Welding Operator: [id number] Requested By: JERARDO CARTAGENA Order Number: [id number] Reading MD: Keith Weldon Measurements Intervals [place] Rate: 110 P: 0 ND: 250 QRS: 81 QRSD: 81 T: -19 QT: 365 QTc: 495 Interpretive Statements Sinus tachycardia Prolonged ND interval Low voltage, extremity leads Compared to ECG 09/15/2024 18:49:48 First degree AV block now present Sinus rhythm no longer present ST (T wave) deviation no longer present Possible ischemia no longer present Electronically Signed On 10-04-2024 14:39:46 CDT by Keith Weldon Please click the below link to view image of tracing.
== END 2024-10-02 14:25 | disposition home or self-care (01) ==
LOC: DAH 08:15 → ENDO 08:15
PROVIDERS: ATTEND Internal Medicine Gastroenterology
DX: R13.10 Dysphagia, unspecified (principal); K22.2 Esophageal obstruction; K31.89 Other diseases of stomach and duodenum; K20.90 Esophagitis, unspecified without bleeding; K44.9 Diaphragmatic hernia without obstruction or gangrene; I48.91 Unspecified atrial fibrillation; K62.5 Hemorrhage of anus and rectum; Z79.01 Long term (current) use of anticoagulants; Z94.4 Liver transplant status; Z79.899 Other long term (current) drug therapy
CPT/HCPCS: 43239; 00731; 93005; J2003; J2704; J2371; A4620; A4215 ×2; A4223; A4222; A4221; A4663; A4606; J3490